=== PATIENT | male | born 1935 | race Caucasian/White ===

== ENCOUNTER 2018-01-21 17:12 | Emergency (ER) | payer MEDICARE ==
[2018-01-21 17:14] VITALS: BP 153/76
--- NOTE | 2018-01-21 17:41 | ER Report ---
History and Physical Time Seen By MD: 17:25 (KUSH LIN MD) HPI/ROS CHIEF COMPLAINT: Confusion HISTORY OF PRESENT ILLNESS: Patient is an 82-year-old male was walking down the street was confused states that he was trying to find somebody's home that he wanted to buy was observed please were notified EMS on arrival on arrival he was confused is alert to person only and no idea where he lived U no idea the year he had no idea how he can't there history Changing he was clearly unable to care for himself police then under advice of states civil litigation attorney brought him here under a title I due to incompetence unable to care for oneself and his confusion have no back metal history is denying any history at this time patient is refusing to give any additional information other than his name and that he wants to go back home when asked repeatedly worse is homeless his address is he he has no recollection an understanding of these questions and has no answers REVIEW OF SYSTEMS: Respiratory: No cough, no dyspnea. Cardiovascular: No chest pain, no palpitations. Gastrointestinal: No vomiting, no abdominal pain. Musculoskeletal: No back pain. Remainder of the 14 system rev: Yes (KUSH LIN MD) Allergies: Coded Allergies: No Known Drug Allergies (Unverified , 01/21/18) Home Meds No Active Prescriptions or Reported Meds Reviewed Nurses Notes: Yes Old Medical Records Reviewed: Yes (KUSH LIN MD) Hx Smoking: No Smoking Status: Never Smoker Hx Alcohol Use: Yes (KUSH LIN MD) Constitutional Vital Sign - Last 24 Hours 01/21/18 17:14 Temp 98.4 Pulse 68 Resp 16 B/P (MAP) 153/76 Pulse Ox 89 O2 Delivery Room Air (FELISA MENCHACA DO) Physical Exam General Appearance: The patient is alert, has no immediate need for airway protection and no current signs of toxicity. [ ] Eyes: Pupils equal and round no injection. Respiratory: Chest is non tender, lungs are clear to auscultation. Cardiac: regular rate and rhythm [ ] Gastrointestinal: Abdomen is soft and non tender, no masses, bowel sounds normal. Musculoskeletal: Neck: Neck is supple and non tender. Extremities have full range of motion and are non tender. Skin: No rashes or lesions. Neuro behavioral exam patient is alert to person only patient is confused as to date location does not know the name of the town he lives in no focal neurological deficits noted DIFFERENTIAL DIAGNOSIS: After history and physical exam differential diagnosis was considered for acute dementia chronic dementia confusion altered mental intracranial (KUSH LIN MD) Medical Decision Making Data Points Result Diagram: 01/21/18174901/21/181749 Laboratory Hematology Test 01/21/18 17:50 Red Blood Count 4.84 M/uL (4.00-5.60) Mean Corpuscular Volume 86.1 fL (80.0-96.0) Mean Corpuscular Hemoglobin 28.7 pg (26.0-33.0) Mean Corpuscular Hemoglobin Concent 33.3 g/dL (32.0-36.0) Red Cell Distribution Width 13.6 % (11.5-14.5) Mean Platelet Volume 8.0 fL (7.2-11.1) Neutrophils (%) (Auto) 83.0 % (39.4-72.5) Lymphocytes (%) (Auto) 10.9 % (17.6-49.6) Monocytes (%) (Auto) 4.8 % (4.1-12.4) Eosinophils (%) (Auto) 0.7 % (0.4-6.7) Basophils (%) (Auto) 0.6 % (0.3-1.4) Nucleated RBC Relative Count (auto) 0.0 /100WBC Neutrophils # (Auto) 4.8 K/uL (2.0-7.4) Lymphocytes # (Auto) 0.6 K/uL (1.3-3.6) Monocytes # (Auto) 0.3 K/uL (0.3-1.0) Eosinophils # (Auto) 0.0 K/uL (0.0-0.5) Basophils # (Auto) 0.0 K/uL (0.0-0.1) Nucleated RBC Absolute Count (auto) 0.00 K/uL Sodium Level 144 mmol/L (137-145) Potassium Level 3.9 mmol/L (3.5-5.0) Chloride Level 105 mmol/L (98-107) Carbon Dioxide Level 25 mmol/L (22-30) Blood Urea Nitrogen 23 mg/dl (9-21) Creatinine 1.10 mg/dl (0.66-1.25) Glomerular Filtration Rate Calc > 60.0 Random Glucose 178 mg/dl (75-110) Calcium Level 8.9 mg/dl (8.4-10.2) Magnesium Level 2.4 mg/dl (1.7-2.2) Total Bilirubin 1.2 mg/dl (0.2-1.3) Aspartate Amino Transf (AST/SGOT) 24 U/L (0-35) Alanine Aminotransferase (ALT/SGPT) 26 U/L (0-56) Alkaline Phosphatase 89 U/L (0-126) Total Protein 7.4 g/dl (6.3-8.2) Albumin 4.2 g/dl (3.5-5.0) Thyroid Stimulating Hormone (TSH) 1.56 uIU/ml (0.46-4.68) Salicylates Level < 10 mg/L Salicylate Last Dose Date unk Acetaminophen Level < 10 ug/ml Serum Alcohol < 10 mg/dl Chemistry Test 01/21/18 17:50 White Blood Count 5.8 k/uL (4.5-11.0) Red Blood Count 4.84 M/uL (4.00-5.60) Hemoglobin 13.9 g/dL (14.0-18.0) Hematocrit 41.7 % (42.0-52.0) Mean Corpuscular Volume 86.1 fL (80.0-96.0) Mean Corpuscular Hemoglobin 28.7 pg (26.0-33.0) Mean Corpuscular Hemoglobin Concent 33.3 g/dL (32.0-36.0) Red Cell Distribution Width 13.6 % (11.5-14.5) Platelet Count 347 K/uL (150-450) Mean Platelet Volume 8.0 fL (7.2-11.1) Neutrophils (%) (Auto) 83.0 % (39.4-72.5) Lymphocytes (%) (Auto) 10.9 % (17.6-49.6) Monocytes (%) (Auto) 4.8 % (4.1-12.4) Eosinophils (%) (Auto) 0.7 % (0.4-6.7) Basophils (%) (Auto) 0.6 % (0.3-1.4) Nucleated RBC Relative Count (auto) 0.0 /100WBC Neutrophils # (Auto) 4.8 K/uL (2.0-7.4) Lymphocytes # (Auto) 0.6 K/uL (1.3-3.6) Monocytes # (Auto) 0.3 K/uL (0.3-1.0) Eosinophils # (Auto) 0.0 K/uL (0.0-0.5) Basophils # (Auto) 0.0 K/uL (0.0-0.1) Nucleated RBC Absolute Count (auto) 0.00 K/uL Glomerular Filtration Rate Calc > 60.0 Calcium Level 8.9 mg/dl (8.4-10.2) Magnesium Level 2.4 mg/dl (1.7-2.2) Total Bilirubin 1.2 mg/dl (0.2-1.3) Aspartate Amino Transf (AST/SGOT) 24 U/L (0-35) Alanine Aminotransferase (ALT/SGPT) 26 U/L (0-56) Alkaline Phosphatase 89 U/L (0-126) Total Protein 7.4 g/dl (6.3-8.2) Albumin 4.2 g/dl (3.5-5.0) Thyroid Stimulating Hormone (TSH) 1.56 uIU/ml (0.46-4.68) Salicylates Level < 10 mg/L Salicylate Last Dose Date unk Acetaminophen Level < 10 ug/ml Serum Alcohol < 10 mg/dl Toxicology Test 01/21/18 17:50 Salicylates Level < 10 mg/L Salicylate Last Dose Date unk Acetaminophen Level < 10 ug/ml Serum Alcohol < 10 mg/dl (FELISA MENCHACA DO) EKG/Imaging Imaging Results: CT scan of the head was obtained. The results of the study are no acute findings. The study was read by the radiologist. I viewed the images myself on the PACS system. (FELISA MENCHACA DO) ED Course/Re-evaluation ED Course Care was assumed at shift change from Dr. Lin. Patient had been emergency detained. He had title 25 evaluation completed and is group home was upheld by Dr. Lin. Further diagnostic studies were pending. Patient was unable to provide a urine for tox screen. CT scan of the head was unremarkable for acute disease. Patient initially uncooperative. He denies wrist and the need for his evaluation. Patient would like to be released. He did attempt to elope from the ER on one occasion. 01/21/2018 10:43:34 pm case discussed with Dr. Naqvi psychiatrist on-call, who accepts the patient under emergency group home to [facility] for further evaluation of his altered mental status Decision to Disposition Date: Jan 21, 2018 Decision to Disposition Time: 20:44 (FELISA MENCHACA DO) Depart Departure Latest Vital Signs Vital Signs Date Time Temp Pulse Resp B/P (MAP) Pulse Ox O2 Delivery O2 Flow Rate FiO2 01/21/18 17:14 98.4 68 16 153/76 89 Room Air (FELISA MENCHACA DO) Impression: Primary Impression: Altered mental status, unspecified Additional Impressions: Disoriented to place Disoriented to time Condition: Improved Disposition: XFER TO [facility] New Scripts No Active Prescriptions or Reported Meds ER - Title 25 MHE Evaluation Title 25 Evaluation Patient Detained By: Physician Date Patient Detained: Jan 21, 2018 Time Patient Detained: 17:48 Date Fci Expires: Jan 21, 2018 Time Fci Expires: 17:48 Legal Status: Police Hold: Yes Legal Status: Residence: [facility] Resident Assessment Data Provided By: Law Enforcement HPI/ROS: Patient confused found wandering on the streets alert to person only unable to answer questions or care for self Admit due to SI or Attempt: No Suicide Plan: No Plan Alcohol or Drugs Involved: No Is Patient Info Reliable: Yes Is Collateral Info Reliable: Yes (KUSH LIN MD) Patient Detained By: Law Enforcement Referral Source: EMA contact (FELISA MENCHACA DO) Mental Status Exam General Appearance: Casual Speech: Clear Mood: Other Affect: Calm, Agitated Thought Process: Loose Associations Thought Content: Ideas of Reference Sensorium: Other Cognition: Alert & Oriented-Person, Other Memory: Other Insight Judgment: Fair Hallucinations: Denies Delusions: Denies (KUSH LIN MD) Current Risk & History Current Dangerous Risk Assessm: Ubable to Care for Self Previous Suicide Attempt: No Previous Attempt Previous Psychiatric Illness: No Previous Psychiatric Treatment: No (KUSH LIN MD) Past Dangerous Risk Assessm: Self-Injurious Behaviors (FELISA MENCHACA DO) Risk Assessment & Disposition Evaluated Risk Assessment: Patient able to care for self admitted (KUSH LNI MD) Impression: Primary Impression: Altered mental status, unspecified Additional Impressions: Disoriented to place Disoriented to time Meets Mental Illness Req.: Yes Meets Dangerousness Req.: Yes Emergency Fci to be: Upheld Date of Decision: Jan 21, 2018 Time of Decision: 17:51 Patient is Medically Stable at: Yes Disposition: S (KUSH LIN MD) Problem Qualifiers Primary Impression: Altered mental status, unspecified Altered mental status type: disorientation Qualified Codes: R41.0 - Disorientation, unspecified KUSH LIN MD Jan 21, 2018 17:41 FELISA MENCHACA DO Jan 21, 2018 20:51
[2018-01-21 17:57] LABS: PLATELET COUNT, AUTOMATED 347 K/uL (150-450)
--- NOTE | 2018-01-21 20:23 | RADIOLOGY IMAGING REPORT ---
FACILITY: [facility] [place] PATIENT NAME: Abel Patel : 1935 MR: [id number] V: [id number] EXAM DATE: ORDERING PHYSICIAN: KUSH MERCEDES TECHNOLOGIST: Location: [facility] [place] Patient: Abel Patel : 1935 Visit/Account:[id number] Date of Sevice: 01/21/2018 EXAMINATION: CT head without IV contrast HISTORY: Confusion. TECHNIQUE: Axial CT images of the head were obtained from the vertex to the skull base without IV c ontrast, with coronal and sagittal 2D reconstructed images. One of the following dose optimization techniques was utilized in the performance of this exam: Autom ated exposure control; adjustment of the mA and/or kV according to the patient's size; or use of an i terative reconstruction technique. Specific details can be referenced in the facility's radiology C T exam operational policy. COMPARISON: None. FINDINGS: Moderate parenchymal atrophy, with patchy low attenuation in the deep white matter, compatible with c hronic small vessel ischemic change. Intracranial vascular calcifications. No CT evidence of intracranial hemorrhage, mass lesion, or acute infarct. No midline shift or extra-a xial fluid collections. Gonzalez-white differentiation is maintained. The calvarium is intact. The partially visualized paranasal sinuses and mastoid air cells are unopaci fied. IMPRESSION: 1. No CT evidence of acute intracranial pathology. 2. Moderate parenchymal atrophy with chronic small vessel ischemic change. Report Dictated By: Robson Novak MD at 01/21/2018 8:19 PM Report E-Signed By: Robson Novak MD at 01/21/2018 8:21 PM [id number]
== END 2018-01-21 23:09 ==
LOC: ER 17:26
DX: R41.82 Altered mental status, unspecified (principal)
CPT/HCPCS: 70450; 83735; 84443; 85025; 99284; G0480; 36415; 80320; 80329; 82040; 82247; 82310; 82374; 82435; 82565; 82947; 84075; 84132; 84155; 84295; 84450; 84460; 84520

== ENCOUNTER 2018-01-21 22:57 | Inpatient (IN) | payer MEDICARE, OTHER ==
[~2018-01-21] VITALS: Ht 167.6 cm; Wt 65.8 kg
[2018-01-21] MEDS ORDERED: ACETAMINOPHEN 325 MG TAB PO PRN (23:10)
[2018-01-22] MEDS: MULTIVITAMINS TAB PO SCH (08:10)
[2018-01-22] MEDS: FOLIC ACID 1 MG TAB PO SCH (11:55)
[2018-01-22] MEDS: THIAMINE HCL 100 MG TAB PO SCH (11:56)
--- NOTE | 2018-01-22 16:37 | BHS - Psychiatric Evaluation ---
Title 25 Evaluation Hearing Report: [id number] Date of Report: Jan 22, 2018 Examiner: [facility] Patient Detained By: Law Enforcement 24hr Mental Health Eval By: Dr. Lin, ER Doctor Date Patient Detained: Jan 21, 2018 Time Patient Detained: 17:22 Date Half-Way Expires: Jan 27, 2018 Time Half-Way Expires: 17:22 Legal Status: Police Hold: No Legal Status: Relationship: Single Legal Status: Residence: [facility] Resident Referral Source: Law Enforcement Assessment Data Provided By: Patient, Law Enforcement, Other Source (Angel Odonnell - [employer]) Chief Complaint: Patient brought to ER from Law Enforcement who found him unable to express a cogent plan for safety and correction. Especially, patient could not identify a javier ronak address. Address he gave was long since vacant, and patient was confused and argumentative. HPI/ROS: Per ER Doctor, Dr. Papito Lin, "Patient is an 82-year-old male was walking down the street was confused states that he was trying to find somebody's home that he wanted to buy was observed police were notified EMS on arrival on arrival he was confused is alert to person only and no idea where he lived and no idea the year he had no idea how he got there. History changing he was clearly unable to care for himself police then under advice of states senior trial attorney brought him here under a title I due to incompetence unable to care for oneself and his confusion have no back mental history is denying any history at this time patient is refusing to give any additional information other than his name and that he wants to go back home when asked repeatedly where his home is or his address, or if he is he has no recollection an understanding of these questions and has no answers." Risk Formulation: Patient is a danger to himself due to his inability to care for himself. His previous reliance on assistance from DFS has abated, and patient is decompensating. Has an inability to remember his address. When DFS was permitted to support him consistently, he was known to have bed bugs, hygiene problems, paranoia about sharing information about himself, and a general inability to care for himself. he was at one time supplied with a cell phone, but reports it was stolen. Further exploration revealed it was turned off and not accessed for a very long time by patient. Patient lacks the basic ability to care for himself on his own. His memory difficulties have become clinically serious according to his DFS worker. Recommendations of [facility] Team: That the patient's initial long-term be upheld and extended for up to ten (10) days to allow for further evaluation, monitoring, and stabilization. Barbara douglas [facility] will follow patient during admission and after discharge. Patient should be directed to follow up with [facility] after discharge from [facility] for ongoing case management. Reliability of Collateral Info Patient DFS worker Angel Odonnell has robust review of of patient's last year of services from DFS. Current Dangerous Risk Assess: Other (Unable to care for himself, does not know where he will live beyong this eviction. ) Current Risk Summary: Patient is a danger to himself due to his inability to care for himself. His previous reliance on assistance from DFS has abated, and patient is decompensating. Has an inability to remember his address. When DFS was permitted to support him consistently, he was known to have bed bugs, hygiene problems, paranoia about sharing information about himself, and a general i nability to care for himself. he was at one time supplied with a cell phone, but reports it was stolen. Further exploration revealed it was turned off and not accessed for a very long time by patient. Patient lacks the basic ability to care for himself on his own. His memory difficulties have become clinically serious according to his DFS worker. Past Dangerous Risk Assess: Self-Injurious Behaviors (Patient conserves electricity due to limited funds and could easily conserve beyond his neeed for a comfortable correction.) BHS - Exam Mental Status Exam General Appearance: Casual, Unkept Speech: Rambling Mood: Dysthmic/Depressed Affect: Anxious, Agitated Thought Process: Other (Perseverates) Thought Content: Suicidal Ideation (Denies), Other (Some paranoia that others enjoy "torturing me for no reason.") Cognition: Alert & Oriented-Person; No Alert & Oriented-Place (Believes the hospital is a fdc, or says he feels as though the hospital is a fdc.), No Alert & Oriented-Time, No Ssslk-Qkulltpz-Cvnwswbjh Memory: Other (Memory is problematic, repeats himself for hours on end.) Intelligence: Average Insight Judgment: Poor Care & Behavior on Unit Pt. Taking Meds Voluntarily: No Behavior on Unit: Patient seems to escalate less around females than males. Title 25 History Psychiatric History: Unknown at this time. Family Psychiatric Hx: Unknown, patient is reluctant to share any information about his family. Drug & Alcohol Use: No drug or alcohol use reported. Current Living Situation: Used to call DFS worker on a cell phone, but has not for the last year and half. Is being evicted from his apartment that DFS worker helped him to obtain. Apartment rent is under $475 per month. DFS worker, Angel Odonnell says patient has frequently been complained about by other tenants in the past for being odorous and untidy. Employment Issues: Per LAVONNE Sorto mica inspector, patient has worked odd jobs/ especially maintenance. May have worked in a [employer] entitled, "[employer]" Financial Issues: Patient has $1,000 upon admit to [facility]. Patient Strengths: Patient seems to have resourceful ness and speaks in a clever, intelligent manner. Current Medical Data: Unknown at this time. Patient was reluctant to give a blood sample. Relevant Medications: Unknown at this time. ROLA DE LA ROSA LPC Jan 22, 2018 16:22
[2018-01-23] MEDS: MULTIVITAMINS TAB PO SCH (08:08)
[2018-01-23] MEDS: THIAMINE HCL 100 MG TAB PO SCH (08:09)
[2018-01-23] MEDS: FOLIC ACID 1 MG TAB PO SCH (08:09)
[2018-01-23] MEDS: CHOLECALCIFEROL 1000 UNIT TAB PO SCH (10:25)
[2018-01-23] MEDS: CYANOCOBALAMIN 1000 MCG TAB PO SCH (10:25)
[2018-01-23] MEDS: OMEGA-3 500 MG CAP PO SCH (10:25)
[2018-01-23 10:36] VITALS: Ht 167.6 cm; Wt 65.8 kg
--- NOTE | 2018-01-23 12:10 | BHS Progress Note ---
BHS - Subjective Progress Notes Subjective Patient today is very cooperative on the unit suffering from what appears to be moderate to severe dementia at this point. Patient not able to remember objects after 5 minutes, even with excessive prompting. Patient has to be re-introduced to staff members constantly. Appetite and thirst drive seem poor, patient drinking fluids when encouraged. It is doubtful a correctable cause of memory loss will be found, and according to DFS, memory problems have been a concern for some time. At this point patient lacks ability to care for self, and will re quire moth exterminator placement. Patient is in need of guardian at this time. Suicidal Ideation: None Homicidal Ideation: None BHS - Objective Physical Exam Vital Signs Hematology Test 01/22/18 00:00 01/22/18 07:10 01/22/18 14:48 01/23/18 07:39 Vitamin D 25-Hydroxy 34 ng/ml (30-100) Free Thyroxine 1.25 ng/dl (0.78-2.19) Urine Color Yellow Urine Clarity Clear Urine pH 6.0 pH (4.8-9.5) Urine Specific [place] 1.030 Urine Protein Trace mg/dL (NEGATIVE) Urine Glucose (UA) Negative mg/dL (NEGATIVE) Urine Ketones Negative mg/dL (NEGATIVE) Urine Blood Negative (NEGATIVE) Urine Nitrite Negative (NEGATIVE) Urine Bilirubin Negative (NEGATIVE) Urine Urobilinogen Negative mg/dL (0.2-1.9) Urine Leukocyte Esterase Negative (NEGATIVE) Urine RBC None /HPF (0-2/HPF) Urine WBC <1 /HPF (0-5/HPF) Urine Squamous Epithelial Cells Few /LPF (</=FEW) Urine Bacteria Negative /HPF (NONE-FEW) Urine Mucus Few /HPF (NONE-FEW) Urine Opiates Screen Negative Urine Barbiturates Screen Negative Ur Tricyclic Antidepressants Screen Negative Urine Phencyclidine Screen Negative Urine Amphetamines Screen Negative Urine Benzodiazepines Screen Negative Urine Cocaine Screen Negative Urine Cannabinoids Screen Negative Whole Blood Glucose 94 mg/DL (75-110) Chemistry Test 01/22/18 00:00 01/22/18 07:10 01/22/18 14:48 01/23/18 07:39 Vitamin D 25-Hydroxy 34 ng/ml (30-100) Free Thyroxine 1.25 ng/dl (0.78-2.19) Urine Color Yellow Urine Clarity Clear Urine pH 6.0 pH (4.8-9.5) Urine Specific [place] 1.030 Urine Protein Trace mg/dL (NEGATIVE) Urine Glucose (UA) Negative mg/dL (NEGATIVE) Urine Ketones Negative mg/dL (NEGATIVE) Urine Blood Negative (NEGATIVE) Urine Nitrite Negative (NEGATIVE) Urine Bilirubin Negative (NEGATIVE) Urine Urobilinogen Negative mg/dL (0.2-1.9) Urine Leukocyte Esterase Negative (NEGATIVE) Urine RBC None /HPF (0-2/HPF) Urine WBC <1 /HPF (0-5/HPF) Urine Squamous Epithelial Cells Few /LPF (</=FEW) Urine Bacteria Negative /HPF (NONE-FEW) Urine Mucus Few /HPF (NONE-FEW) Urine Opiates Screen Negative Urine Barbiturates Screen Negative Ur Tricyclic Antidepressants Screen Negative Urine Phencyclidine Screen Negative Urine Amphetamines Screen Negative Urine Benzodiazepines Screen Negative Urine Cocaine Screen Negative Urine Cannabinoids Screen Negative Whole Blood Glucose 94 mg/DL (75-110) Toxicology Test 01/22/18 07:10 Urine Opiates Screen Negative Urine Barbiturates Screen Negative Ur Tricyclic Antidepressants Screen Negative Urine Phencyclidine Screen Negative Urine Amphetamines Screen Negative Urine Benzodiazepines Screen Negative Urine Cocaine Screen Negative Urine Cannabinoids Screen Negative Urinalysis Test 01/22/18 07:10 Urine Color Yellow Urine Clarity Clear Urine pH 6.0 pH (4.8-9.5) Urine Specific [place] 1.030 Urine Protein Trace mg/dL (NEGATIVE) Urine Glucose (UA) Negative mg/dL (NEGATIVE) Urine Ketones Negative mg/dL (NEGATIVE) Urine Blood Negative (NEGATIVE) Urine Nitrite Negative (NEGATIVE) Urine Bilirubin Negative (NEGATIVE) Urine Urobilinogen Negative mg/dL (0.2-1.9) Urine Leukocyte Esterase Negative (NEGATIVE) Urine RBC None /HPF (0-2/HPF) Urine WBC <1 /HPF (0-5/HPF) Urine Squamous Epithelial Cells Few /LPF (</=FEW) Urine Bacteria Negative /HPF (NONE-FEW) Urine Mucus Few /HPF (NONE-FEW) Vital Signs Date Time Temp Pulse Resp B/P (MAP) Pulse Ox O2 Delivery O2 Flow Rate FiO2 01/22/18 20:48 61 93 Room Air Muscle Strength and Tone: WNL Gait and Station: Steady BHS Medications Reviewed: Side Effects, Benefits of Medication, Risks Allergies Reviewed: Yes Mental Status Exam General Appearance: Casual, Good Eye Contact, Cooperative, Polite, Good Interaction, Unkept (somewhat), Tearful (at times); No Psychomotor Agitation, No Psychomotor Retardation, No Bizarre Mannerisms, No Tics Speech: Clear, Spontaneous, Normal Rate, Normal Rhythm, Normal Volume, Normal Tone, Rambling (repeating previous converstations ); No Inappropriate Mood: Dysthmic/Depressed (frustrated) Affect: Calm, Tearful, Anxious (at times); No Agitated Thought Process: No Organized, No Logical, No Loose Associations, No Flight of Ideas; Other (Perseverates) Thought Content: Suicidal Ideation (Denies); No Homicidal Ideation, No Delusions, No Auditory Halllucinations, No Visual Hallucinations, No Thought Broadcasting, No Ideas of Reference, No Obsessions, No Compulsions Cognition: Alert & Oriented-Person; No Alert & Oriented-Place (partially to place), No Alert & Oriented-Time, No Uskhu-Benrmhga-Qqwgjlaiz Memory: No Immediate, No Recent; Remote (some remote memory appears intact); No Other Intelligence: Average (historically likely to be average ) Insight Judgment: Poor (inability to care for self in what 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 ) [facility] Assessment and Plan [id number] Encounter Date: Jan 23, 2018 [id number] Encounter Time: 10:00 [facility] Plan: Necessary Precautions, Individual/Group Therapy, Admin/Titrate Meds, Educate Patient Tobacco Medications: Not Appropriate Condition Multpiple Antipsychotics Used: No Problems: (1) Major neurocognitive disorder Status: Chronic Assessment & Plan: patient in need of [facility] placement, and guardianship Condition 1. continue treatment. LINWOOD GIRON MD Jan 23, 2018 12:10
[2018-01-23 13:25] VITALS: BP 110/70
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
[2018-01-23 20:21] VITALS: BP 122/84
[2018-01-23] MEDS: DONEPEZIL HCL 5 MG TAB PO SCH ×2 (20:58→21:00)
[2018-01-24] MEDS: CYANOCOBALAMIN 1000 MCG TAB PO SCH (09:00)
[2018-01-24] MEDS: FOLIC ACID 1 MG TAB PO SCH (09:00)
[2018-01-24] MEDS: THIAMINE HCL 100 MG TAB PO SCH (09:00)
[2018-01-24] MEDS: MULTIVITAMINS TAB PO SCH (09:00)
[2018-01-24] MEDS: CHOLECALCIFEROL 1000 UNIT TAB PO SCH (09:00)
[2018-01-24] MEDS: OMEGA-3 500 MG CAP PO SCH (09:00)
--- NOTE | 2018-01-24 11:43 | BHS Progress Note ---
[facility] - Subjective Progress Notes Subjective Pt seen in conference room. Pt remains cooperative, he continues to protest being here, "I'm no criminal, I've done nothing wrong." Short term memory is significantly impaired-- he and I spoke in the hallway for about 10 minutes, then 20 mins later he had no recollection of ever meeting me. Pt did eat a granola bar today, but other than that he continues to refuse food, stating he has no appetite. During our conversation he is unable to retain information past about 4-5 minutes. He denies physical complaints, says he is sleeping fine and staff confirm. He continues to refuse all medications. I had ordered zyprexa low dose last night for mild paranoia, but he refused that, as well as refused aricept. B12 and folate levels are still pending. Will continue to encourage po intake, continue on [address] 25 hold as pt is clearly unable to care for self. Needs guardian and exterminator placement. Suicidal Ideation: None Homicidal Ideation: None [facility] - Objective Physical Exam Vital Signs Vital Signs 01/23/18 01/23/18 13:25 20:21 Temp 98.8 Pulse 66 Resp 16 B/P (MAP) 122/84 (97) Pulse Ox 94 O2 Delivery Room Air Muscle Strength and Tone: WNL Gait and Station: Steady [facility] Medications Reviewed: Side Effects, Benefits of Medication, Risks Allergies Reviewed: Yes Mental Status Exam General Appearance: Casual, Good Eye Contact, Cooperative, Polite, Good Interaction, Unkept (somewhat); No Psychomotor Agitation, No Psychomotor Retardation, No Bizarre Mannerisms, No Tics Speech: Clear, Spontaneous, Normal Rate, Normal Rhythm, Normal Volume, Normal Tone, Rambling (repeating previous converstations ); No Inappropriate Mood: Dysthmic/Depressed (frustrated) Affect: Calm, Tearful, Anxious (at times); No Agitated Thought Process: No Organized, No Logical, No Loose Associations, No Flight of Ideas; Other (Perseverates) Thought Content: Suicidal Ideation (Denies); No Homicidal Ideation, No Delusions, No Auditory Halllucinations, No Visual Hallucinations, No Thought Broadcasting, No Ideas of Reference, No Obsessions, No Compulsions Cognition: Alert & Oriented-Person; No Alert & Oriented-Place, No Alert & Oriented-Time, No Vyaja-Jqajsoiq-Katdtsovi Memory: No Immediate, No Recent; Remote (some remote memory appears intact); No Other Intelligence: Average (historically likely to be average ) Insight Judgment: Poor (inability to care for self in what 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 ) [facility] Assessment and Plan [id number] Encounter Date: Jan 24, 2018 [id number] Encounter Time: 09:00 [facility] Plan: Necessary Precautions, Individual/Group Therapy, Admin/Titrate Meds, Educate Patient Tobacco Medications: Not Appropriate Condition Multpiple Antipsychotics Used: No Problems: (1) Major neurocognitive disorder Status: Chronic SRINIVASA LOVE MD Jan 24, 2018 11:43
[2018-01-24] MEDS: DONEPEZIL HCL 5 MG TAB PO SCH (21:00)
[2018-01-24] MEDS: OLANZapine 5 MG TAB PO SCH (21:00)
[2018-01-25] MEDS: MULTIVITAMINS TAB PO SCH (09:00)
[2018-01-25] MEDS: THIAMINE HCL 100 MG TAB PO SCH (09:00)
[2018-01-25] MEDS: FOLIC ACID 1 MG TAB PO SCH (09:00)
[2018-01-25] MEDS: CYANOCOBALAMIN 1000 MCG TAB PO SCH (09:00)
[2018-01-25] MEDS: CHOLECALCIFEROL 1000 UNIT TAB PO SCH (09:00)
[2018-01-25] MEDS: OMEGA-3 500 MG CAP PO SCH (09:00)
--- NOTE | 2018-01-25 14:54 | BHS Progress Note ---
[facility] - Subjective Progress Notes Subjective Pt seen in the dining room with staff. Pt is still refusing to eat and is drinking very little. He so far shows no ill effects-- moved his bowels yesterday, is urinating, is alert, ambulating steadily, says he has no appetite. Evidence of dementia persists unchanged with very poor immediate and short term memory. He shows signs of paranoia as well-- slept on newspapers covering his entire bed, checks behind doors. Still refusing medications. B12 and folate levels are both normal. Will continue to encourage po intake and continue to pursue safe disposition-- application is in at [facility]. Suicidal Ideation: None Homicidal Ideation: None [facility] - Objective Physical Exam Vital Signs Vital Signs 01/23/18 01/23/18 13:25 20:21 Temp 98.8 Pulse 66 Resp 16 B/P (MAP) 122/84 (97) Pulse Ox 94 O2 Delivery Room Air Muscle Strength and Tone: WNL Gait and Station: Steady [facility] Medications Reviewed: Side Effects, Benefits of Medication, Risks Allergies Reviewed: Yes Mental Status Exam General Appearance: Casual, Good Eye Contact, Cooperative, Polite, Good Inte raction, Unkept (somewhat); No Psychomotor Agitation, No Psychomotor Retardation, No Bizarre Mannerisms, No Tics Speech: Clear, Spontaneous, Normal Rate, Normal Rhythm, Normal Volume, Normal Tone, Rambling (repeating previous converstations ); No Inappropriate Mood: Dysthmic/Depressed (frustrated) Affect: Calm, Tearful, Anxious (at times); No Agitated Thought Process: No Organized, No Logical, No Loose Associations, No Flight of Ideas; Other (Perseverates) Thought Content: Suicidal Ideation (Denies); No Homicidal Ideation, No Delusions, No Auditory Halllucinations, No Visual Hallucinations, No Thought Broadcasting, No Ideas of Reference, No Obsessions, No Compulsions Cognition: Alert & Oriented-Person; No Alert & Oriented-Place, No Alert & Oriented-Time, No Lwift-Hnlcqpfo-Yoedybfwc Memory: No Immediate, No Recent; Remote (some remote memory appears intact); No Other Intelligence: Average (historically likely to be average ) Insight Judgment: Poor (inability to care for self in what 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 ) [facility] Assessment and Plan [id number] Encounter Date: Jan 25, 2018 Iypz-[id number] Encounter Time: 09:[address] [facility] Plan: Necessary Precautions, Individual/Group Therapy, Admin/Titrate Meds, Educate Patient Tobacco Medications: Not Appropriate Condition Multpiple Antipsychotics Used: No Problems: (1) Major neurocognitive disorder Status: Chronic SRINIVASA LOVE MD Jan 25, 2018 14:54
[2018-01-25] MEDS: DONEPEZIL HCL 5 MG TAB PO SCH ×2 (20:42→21:00)
[2018-01-25 20:55] VITALS: BP 156/81
[2018-01-25] MEDS: OLANZapine 5 MG TAB PO SCH (21:00)
[2018-01-26] MEDS: THIAMINE HCL 100 MG TAB PO SCH (08:00)
[2018-01-26] MEDS: CHOLECALCIFEROL 1000 UNIT TAB PO SCH (08:00)
[2018-01-26] MEDS: FOLIC ACID 1 MG TAB PO SCH (08:00)
[2018-01-26] MEDS: CYANOCOBALAMIN 1000 MCG TAB PO SCH (08:00)
[2018-01-26] MEDS: OMEGA-3 500 MG CAP PO SCH (08:00)
[2018-01-26] MEDS: MULTIVITAMINS TAB PO SCH (08:00)
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
[2018-01-26 14:25] VITALS: BP 129/67
[2018-01-26 19:31] VITALS: BP 132/78
[2018-01-26] MEDS: DONEPEZIL HCL 5 MG TAB PO SCH ×2 (20:41→21:00)
[2018-01-26] MEDS: OLANZapine 5 MG TAB PO SCH (20:58)
[2018-01-27] MEDS: FOLIC ACID 1 MG TAB PO SCH (08:41)
[2018-01-27] MEDS: CYANOCOBALAMIN 1000 MCG TAB PO SCH (08:41)
[2018-01-27] MEDS: OMEGA-3 500 MG CAP PO SCH (08:41)
[2018-01-27] MEDS: THIAMINE HCL 100 MG TAB PO SCH (08:41)
[2018-01-27] MEDS: MULTIVITAMINS TAB PO SCH (08:41)
[2018-01-27] MEDS: CHOLECALCIFEROL 1000 UNIT TAB PO SCH (08:42)
--- NOTE | 2018-01-27 11:26 | BHS Progress Note ---
[facility] - Subjective Progress Notes Subjective Patient irritated, this AM, with being a "prisoner" Patient again demonstrating almost no immediate memory, and continues with minimal food/ liquid intake. [facility] to evaluate today, for possible admission. Will have routine lab work today. Patient demonstrating no memory of this provider after just a few minutes. Suicidal Ideation: None Homicidal Ideation: None [facility] - Objective Physical Exam Vital Signs Vital Signs Date Time Temp Pulse Resp B/P (MAP) Pulse Ox O2 Delivery O2 Flow Rate FiO2 01/26/18 19:31 98.5 61 132/78 (96) 95 Room Air 01/23/18 13:25 16 Hematology Test 01/22/18 00:00 01/22/18 07:10 01/22/18 14:48 01/23/18 07:39 Vitamin D 25-Hydroxy 34 ng/ml (30-100) Free Thyroxine 1.25 ng/dl (0.78-2.19) Free Triiodothyronine 2.5 pg/mL (2.4-4.2) Urine Color Yellow Urine Clarity Clear Urine pH 6.0 pH (4.8-9.5) Urine Specific Gray 1.030 Urine Protein Trace mg/dL (NEGATIVE) Urine Glucose (UA) Negative mg/dL (NEGATIVE) Urine Ketones Negative mg/dL (NEGATIVE) Urine Blood Negative (NEGATIVE) Urine Nitrite Negative (NEGATIVE) Urine Bilirubin Negative (NEGATIVE) Urine Urobilinogen Negative mg/dL (0.2-1.9) Urine Leukocyte Esterase Negative (NEGATIVE) Urine RBC None /HPF (0-2/HPF) Urine WBC <1 /HPF (0-5/HPF) Urine Squamous Epithelial Cells Few /LPF (</=FEW) Urine Bacteria Negative /HPF (NONE-FEW) Urine Mucus Few /HPF (NONE-FEW) Urine Opiates Screen Negative Urine Barbiturates Screen Negative Ur Tricyclic Antidepressants Screen Negative Urine Phencyclidine Screen Negative Urine Amphetamines Screen Negative Urine Benzodiazepines Screen Negative Urine Cocaine Screen Negative Urine Cannabinoids Screen Negative Vitamin B12 Level 591 pg/mL (180-914) Folate 20.2 ng/mL (>=5.9) Whole Blood Glucose 94 mg/DL (75-110) Chemistry Test 01/22/18 00:00 01/22/18 07:10 01/22/18 14:48 01/23/18 07:39 Vitamin D 25-Hydroxy 34 ng/ml (30-100) Free Thyroxine 1.25 ng/dl (0.78-2.19) Free Triiodothyronine 2.5 pg/mL (2.4-4.2) Urine Color Yellow Urine Clarity Clear Urine pH 6.0 pH (4.8-9.5) Urine Specific Gray 1.030 Urine Protein Trace mg/dL (NEGATIVE) Urine Glucose (UA) Negative mg/dL (NEGATIVE) Urine Ketones Negative mg/dL (NEGATIVE) Urine Blood Negative (NEGATIVE) Urine Nitrite Negative (NEGATIVE) Urine Bilirubin Negative (NEGATIVE) Urine Urobilinogen Negative mg/dL (0.2-1.9) Urine Leukocyte Esterase Negative (NEGATIVE) Urine RBC None /HPF (0-2/HPF) Urine WBC <1 /HPF (0-5/HPF) Urine Squamous Epithelial Cells Few /LPF (</=FEW) Urine Bacteria Negative /HPF (NONE-FEW) Urine Mucus Few /HPF (NONE-FEW) Urine Opiates Screen Negative Urine Barbiturates Screen Negative Ur Tricyclic Antidepressants Screen Negative Urine Phencyclidine Screen Negative Urine Amphetamines Screen Negative Urine Benzodiazepines Screen Negative Urine Cocaine Screen Negative Urine Cannabinoids Screen Negative Vitamin B12 Level 591 pg/mL (180-914) Folate 20.2 ng/mL (>=5.9) Whole Blood Glucose 94 mg/DL (75-110) Toxicology Test 01/22/18 07:10 Urine Opiates Screen Negative Urine Barbiturates Screen Negative Ur Tricyclic Antidepressants Screen Negative Urine Phencyclidine Screen Negative Urine Amphetamines Screen Negative Urine Benzodiazepines Screen Negative Urine Cocaine Screen Negative Urine Cannabinoids Screen Negative Urinalysis Test 01/22/18 07:10 Urine Color Yellow Urine Clarity Clear Urine pH 6.0 pH (4.8-9.5) Urine Specific Gray 1.030 Urine Protein Trace mg/dL (NEGATIVE) Urine Glucose (UA) Negative mg/dL (NEGATIVE) Urine Ketones Negative mg/dL (NEGATIVE) Urine Blood Negative (NEGATIVE) Urine Nitrite Negative (NEGATIVE) Urine Bilirubin Negative (NEGATIVE) Urine Urobilinogen Negative mg/dL (0.2-1.9) Urine Leukocyte Esterase Negative (NEGATIVE) Urine RBC None /HPF (0-2/HPF) Urine WBC <1 /HPF (0-5/HPF) Urine Squamous Epithelial Cells Few /LPF (</=FEW) Urine Bacteria Negative /HPF (NONE-FEW) Urine Mucus Few /HPF (NONE-FEW) Muscle Strength and Tone: WNL Gait and Station: Steady [facility] Medications Reviewed: Side Effects, Benefits of Medication, Risks Allergies Reviewed: Yes Mental Status Exam General Appearance: Casual, Cooperative, Polite, Unkept (somewhat, and avoiding clothes today. ); No Psychomotor Agitation, No Psychomotor Retardation, No Bizarre Mannerisms, No Tics Speech: Clear, Spontaneous, Normal Rate, Normal Rhythm, Normal Volume, Normal Tone, Rambling (repeating previous converstations ); No Inappropriate Mood: Dysthmic/Depressed (frustrated) Affect: Calm, Tearful, Anxious (at times); No Agitated Thought Process: No Organized, No Logical, No Loose Associations, No Flight of Ideas; Other (Perseverates) Thought Content: No Suicidal Ideation, No Homicidal Ideation, No Delusions, No Auditory Halllucinations, No Visual Hallucinations, No Thought Broadcasting, No Ideas of Reference, No Obsessions, No Compulsions, No Other Cognition: Alert & Oriented-Person; No Alert & Oriented-Place, No Alert & Oriented-Time, No Agefd-Utwnaqrm-Tnxkxwwyr Memory: No Immediate, No Recent; Remote (some remote memory appears intact); No Other Intelligence: Average (historically likely to be average ) Insight Judgment: Poor (inability to care for self in what 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 ) [facility] Assessment and Plan [id number] Encounter Date: Jan 27, 2018 Nmnv-[id number] Encounter Time: 10:00 [facility] Plan: Necessary Precautions, Individual/Group Therapy, Admin/Titrate Meds, Educate Patient Tobacco Medications: Not Appropriate Condition Multpiple Antipsychotics Used: No Problems: (1) Major neurocognitive disorder Status: Chronic Assessment & Plan: patient in need of terminal superintendent placement, and guardianship Condition 1. continue treatment. 2. [facility] to interview today. LINWOOD GIRON MD Jan 27, 2018 11:26
[2018-01-27 11:40] LABS: PLATELET COUNT, AUTOMATED 377 K/uL (150-450)
[2018-01-27] MEDS: OLANZapine 5 MG TAB PO SCH (21:00)
[2018-01-27 21:31] VITALS: BP 138/62
[2018-01-28] MEDS: FOLIC ACID 1 MG TAB PO SCH (07:57)
[2018-01-28] MEDS: CYANOCOBALAMIN 1000 MCG TAB PO SCH (07:57)
[2018-01-28] MEDS: OMEGA-3 500 MG CAP PO SCH (07:57)
[2018-01-28] MEDS: THIAMINE HCL 100 MG TAB PO SCH (07:57)
[2018-01-28] MEDS: CHOLECALCIFEROL 1000 UNIT TAB PO SCH (07:57)
[2018-01-28] MEDS: MULTIVITAMINS TAB PO SCH (07:57)
--- NOTE | 2018-01-28 12:03 | BHS Progress Note ---
BHS - Subjective Progress Notes Subjective Patient remains cooperative overall on the unit, again demonstrating no memory of this provider or other staff members from yesterday. Patient does demonstrate a partial memory of [employer] employment case manager who has known patient for a year. Patient is medically healthy overall, with almost no immediate memory. Patient refusing Aricept and Zyprexa at night. [facility] could possibly have a room available for the patient but not likely that patient has any funding ability. [facility] has worked with this patient long enough to offer a high probability that patient has very limited financial ability as well as no family members available. Will continue to assess, at this point patient needs hearing for commitment while suitable LTC placement is found. Suicidal Ideation: None Homicidal Ideation: None S - Objective Physical Exam Vital Signs Vital Signs Date Time Temp Pulse Resp B/P (MAP) Pulse Ox O2 Delivery O2 Flow Rate FiO2 01/27/18 21:31 58 138/62 (87) 92 Room Air 01/26/18 19:31 98.5 Hematology Test 01/22/18 00:00 01/22/18 07:10 01/22/18 14:48 01/27/18 11:32 Vitamin D 25-Hydroxy 34 ng/ml (30-100) Free Thyroxine 1.25 ng/dl (0.78-2.19) Free Triiodothyronine 2.5 pg/mL (2.4-4.2) Urine Opiates Screen Negative Urine Barbiturates Screen Negative Ur Tricyclic Antidepressants Screen Negative Urine Phencyclidine Screen Negative Urine Amphetamines Screen Negative Urine Benzodiazepines Screen Negative Urine Cocaine Screen Negative Urine Cannabinoids Screen Negative Vitamin B12 Level 591 pg/mL (180-914) Folate 20.2 ng/mL (>=5.9) Whole Blood Glucose 134 mg/DL (75-110) Test 01/27/18 11:33 Red Blood Count 4.90 M/uL (4.00-5.60) Mean Corpuscular Volume 87.4 fL (80.0-96.0) Mean Corpuscular Hemoglobin 29.1 pg (26.0-33.0) Mean Corpuscular Hemoglobin Concent 33.3 g/dL (32.0-36.0) Red Cell Distribution Width 13.5 % (11.5-14.5) Mean Platelet Volume 8.0 fL (7.2-11.1) Neutrophils (%) (Auto) 77.1 % (39.4-72.5) Lymphocytes (%) (Auto) 12.6 % (17.6-49.6) Monocytes (%) (Auto) 7.5 % (4.1-12.4) Eosinophils (%) (Auto) 1.6 % (0.4-6.7) Basophils (%) (Auto) 1.2 % (0.3-1.4) Nucleated RBC Relative Count (auto) 0.1 /100WBC Neutrophils # (Auto) 4.4 K/uL (2.0-7.4) Lymphocytes # (Auto) 0.7 K/uL (1.3-3.6) Monocytes # (Auto) 0.4 K/uL (0.3-1.0) Eosinophils # (Auto) 0.1 K/uL (0.0-0.5) Basophils # (Auto) 0.1 K/uL (0.0-0.1) Nucleated RBC Absolute Count (auto) 0.00 K/uL Urine Color Kristen Urine Clarity Slightly-cloudy Urine pH 5.0 pH (4.8-9.5) Urine Specific [place] 1.024 Urine Protein Negative mg/dL (NEGATIVE) Urine Glucose (UA) Negative mg/dL (NEGATIVE) Urine Ketones Negative mg/dL (NEGATIVE) Urine Blood Negative (NEGATIVE) Urine Nitrite Negative (NEGATIVE) Urine Bilirubin Negative (NEGATIVE) Urine Urobilinogen 4.0 mg/dL (0.2-1.9) Urine Leukocyte Esterase Negative (NEGATIVE) Urine RBC None /HPF (0-2/HPF) Urine WBC 1 /HPF (0-5/HPF) Urine Squamous Epithelial Cells Few /LPF (</=FEW) Urine Bacteria Few /HPF (NONE-FEW) Urine Hyaline Casts Few /LPF (NONE-FEW) Urine Mucus Few /HPF (NONE-FEW) Sodium Level 141 mmol/L (137-145) Potassium Level 3.8 mmol/L (3.5-5.0) Chloride Level 101 mmol/L (98-107) Carbon Dioxide Level 27 mmol/L (22-30) Blood Urea Nitrogen 17 mg/dl (9-21) Creatinine 0.80 mg/dl (0.66-1.25) Glomerular Filtration Rate Calc > 60.0 Random Glucose 166 mg/dl (75-110) Calcium Level 8.8 mg/dl (8.4-10.2) Total Bilirubin 1.1 mg/dl (0.2-1.3) Aspartate Amino Transf (AST/SGOT) 22 U/L (0-35) Alanine Aminotransferase (ALT/SGPT) 26 U/L (0-56) Alkaline Phosphatase 83 U/L (0-126) Total Protein 6.5 g/dl (6.3-8.2) Albumin 3.8 g/dl (3.5-5.0) Chemistry Test 01/22/18 00:00 01/22/18 07:10 01/22/18 14:48 01/27/18 11:32 Vitamin D 25-Hydroxy 34 ng/ml (30-100) Free Thyroxine 1.25 ng/dl (0.78-2.19) Free Triiodothyronine 2.5 pg/mL (2.4-4.2) Urine Opiates Screen Negative Urine Barbiturates Screen Negative Ur Tricyclic Antidepressants Screen Negative Urine Phencyclidine Screen Negative Urine Amphetamines Screen Negative Urine Benzodiazepines Screen Negative Urine Cocaine Screen Negative Urine Cannabinoids Screen Negative Vitamin B12 Level 591 pg/mL (180-914) Folate 20.2 ng/mL (>=5.9) Whole Blood Glucose 134 mg/DL (75-110) Test 01/27/18 11:33 White Blood Count 5.7 k/uL (4.5-11.0) Red Blood Count 4.90 M/uL (4.00-5.60) Hemoglobin 14.3 g/dL (14.0-18.0) Hematocrit 42.8 % (42.0-52.0) Mean Corpuscular Volume 87.4 fL (80.0-96.0) Mean Corpuscular Hemoglobin 29.1 pg (26.0-33.0) Mean Corpuscular Hemoglobin Concent 33.3 g/dL (32.0-36.0) Red Cell Distribution Width 13.5 % (11.5-14.5) Platelet Count 377 K/uL (150-450) Mean Platelet Volume 8.0 fL (7.2-11.1) Neutrophils (%) (Auto) 77.1 % (39.4-72.5) Lymphocytes (%) (Auto) 12.6 % (17.6-49.6) Monocytes (%) (Auto) 7.5 % (4.1-12.4) Eosinophils (%) (Auto) 1.6 % (0.4-6.7) Basophils (%) (Auto) 1.2 % (0.3-1.4) Nucleated RBC Relative Count (auto) 0.1 /100WBC Neutrophils # (Auto) 4.4 K/uL (2.0-7.4) Lymphocytes # (Auto) 0.7 K/uL (1.3-3.6) Monocytes # (Auto) 0.4 K/uL (0.3-1.0) Eosinophils # (Auto) 0.1 K/uL (0.0-0.5) Basophils # (Auto) 0.1 K/uL (0.0-0.1) Nucleated RBC Absolute Count (auto) 0.00 K/uL Urine Color Kristen Urine Clarity Slightly-cloudy Urine pH 5.0 pH (4.8-9.5) Urine Specific [place] 1.024 Urine Protein Negative mg/dL (NEGATIVE) Urine Glucose (UA) Negative mg/dL (NEGATIVE) Urine Ketones Negative mg/dL (NEGATIVE) Urine Blood Negative (NEGATIVE) Urine Nitrite Negative (NEGATIVE) Urine Bilirubin Negative (NEGATIVE) Urine Urobilinogen 4.0 mg/dL (0.2-1.9) Urine Leukocyte Esterase Negative (NEGATIVE) Urine RBC None /HPF (0-2/HPF) Urine WBC 1 /HPF (0-5/HPF) Urine Squamous Epithelial Cells Few /LPF (</=FEW) Urine Bacteria Few /HPF (NONE-FEW) Urine Hyaline Casts Few /LPF (NONE-FEW) Urine Mucus Few /HPF (NONE-FEW) Glomerular Filtration Rate Calc > 60.0 Calcium Level 8.8 mg/dl (8.4-10.2) Total Bilirubin 1.1 mg/dl (0.2-1.3) Aspartate Amino Transf (AST/SGOT) 22 U/L (0-35) Alanine Aminotransferase (ALT/SGPT) 26 U/L (0-56) Alkaline Phosphatase 83 U/L (0-126) Total Protein 6.5 g/dl (6.3-8.2) Albumin 3.8 g/dl (3.5-5.0) Toxicology Test 01/22/18 07:10 Urine Opiates Screen Negative Urine Barbiturates Screen Negative Ur Tricyclic Antidepressants Screen Negative Urine Phencyclidine Screen Negative Urine Amphetamines Screen Negative Urine Benzodiazepines Screen Negative Urine Cocaine Screen Negative Urine Cannabinoids Screen Negative Urinalysis Test 01/27/18 11:33 Urine Color Kristen Urine Clarity Slightly-cloudy Urine pH 5.0 pH (4.8-9.5) Urine Specific [place] 1.024 Urine Protein Negative mg/dL (NEGATIVE) Urine Glucose (UA) Negative mg/dL (NEGATIVE) Urine Ketones Negative mg/dL (NEGATIVE) Urine Blood Negative (NEGATIVE) Urine Nitrite Negative (NEGATIVE) Urine Bilirubin Negative (NEGATIVE) Urine Urobilinogen 4.0 mg/dL (0.2-1.9) Urine Leukocyte Esterase Negative (NEGATIVE) Urine RBC None /HPF (0-2/HPF) Urine WBC 1 /HPF (0-5/HPF) Urine Squamous Epithelial Cells Few /LPF (</=FEW) Urine Bacteria Few /HPF (NONE-FEW) Urine Hyaline Casts Few /LPF (NONE-FEW) Urine Mucus Few /HPF (NONE-FEW) Muscle Strength and Tone: WNL Gait and Station: Steady [facility] Medications Reviewed: Side Effects, Benefits of Medication, Risks Allergies Reviewed: Yes Mental Status Exam General Appearance: Casual, Cooperative, Polite, Unkept (somewhat, ); No Psychomotor Agitation, No Psychomotor Retardation, No Bizarre Mannerisms, No Tics Speech: Clear, Spontaneous, Normal Rate, Normal Rhythm, Normal Volume, Normal Tone, Rambling (repeating previous converstations ); No Inappropriate Mood: Dysthmic/Depressed (frustrated) Affect: Calm, Tearful, Anxious (at times); No Agitated Thought Process: No Organized, No Logical, No Loose Associations, No Flight of Ideas; Other (Perseverates) Thought Content: No Suicidal Ideation, No Homicidal Ideation, No Delusions, No Auditory Halllucinations, No Visual Hallucinations, No Thought Broadcasting, No Ideas of Reference, No Obsessions, No Compulsions, No Other Cognition: Alert & Oriented-Person; No Alert & Oriented-Place, No Alert & Oriented-Time, No Gzdvx-Xdovtyji-Pjzqwqwij Memory: No Immediate, No Recent; Remote (some remote memory appears intact); No Other Intelligence: Average (historically likely to be average ) Insight Judgment: Poor (inability to care for self in what 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 ) Result Diagram: 01/27/18 1133 01/27/18 1133 [facility] Assessment and Plan Tcpd-[id number] Encounter Date: Jan 28, 2018 Uoon-[id number] Encounter Time: 09:00 [facility] Plan: Necessary Precautions, Individual/Group Therapy, Admin/Titrate Meds, Educate Patient Tobacco Medications: Not Appropriate Condition Multpiple Antipsychotics Used: No Problems: (1) Major neurocognitive disorder Status: Chronic Assessment & Plan: patient in need of termite treater helper placement, and guardianship Condition 1. encourage medication compliance. 2. verify finances if possible, for aid in appropriate placement. 3. schedule hearing LINWOOD GIRON MD Jan 28, 2018 12:03
[2018-01-29] MEDS: THIAMINE HCL 100 MG TAB PO SCH (08:11)
[2018-01-29] MEDS: FOLIC ACID 1 MG TAB PO SCH (08:11)
[2018-01-29] MEDS: OMEGA-3 500 MG CAP PO SCH (08:11)
[2018-01-29] MEDS: MULTIVITAMINS TAB PO SCH (08:11)
[2018-01-29] MEDS: CYANOCOBALAMIN 1000 MCG TAB PO SCH (08:11)
[2018-01-29] MEDS: CHOLECALCIFEROL 1000 UNIT TAB PO SCH (08:12)
--- NOTE | 2018-01-29 10:49 | BHS Progress Note ---
S - Subjective Progress Notes Subjective Patient remains cooperative today, extremely limited immediate memory continues, with this provider having to introduce himself again today. Patient in need of hearing to be placed on [facility] wait list, if suitable placement in penitentiary care could can not be found. No other complaints. Patient refusing medication. Suicidal Ideation: None Homicidal Ideation: None [facility] - Objective Physical Exam Vital Signs Vital Signs Date Time Temp Pulse Resp B/P (MAP) Pulse Ox O2 Delivery O2 Flow Rate FiO2 01/27/18 21:31 58 138/62 (87) 92 Room Air 01/26/18 19:31 98.5 Muscle Strength and Tone: WNL Gait and Station: Steady [facility] Medications Reviewed: Side Effects, Benefits of Medication, Risks Allergies Reviewed: Yes Mental Status Exam General Appearance: Casual, Cooperative, Polite, Unkept (somewhat, ); No Psychomotor Agitation, No Psychomotor Retardation, No Bizarre Mannerisms, No Tics Speech: Clear, Spontaneous, Normal Rate, Normal Rhythm, Normal Volume, Normal Tone, Rambling (repeating previous converstations ); No Inappropriate Mood: Dysthmic/Depressed (frustrated) Affect: Calm, Tearful, Anxious (at times); No Agitated Thought Process: No Organized, No Logical, No Loose Associations, No Flight of Ideas; Other (Perseverates) Thought Content: No Suicidal Ideation, No Homicidal Ideation, No Delusions, No Auditory Halllucinations, No Visual Hallucinations, No Thought Broadcasting, No Ideas of Reference, No Obsessions, No Compulsions, No Other Cognition: Alert & Oriented-Person; No Alert & Oriented-Place, No Alert & Oriented-Time, No Gznlz-Zhzzxzzb-Xghwncgrw Memory: No Immediate, No Recent; Remote (some remote memory appears intact); No Other Intelligence: Average (historically likely to be average ) Insight Judgment: Poor (inability to care for self in what 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 ) Result Diagram: 01/27/18 1133 01/27/[address] [facility] Assessment and Plan Znfh-dg-Teln Encounter Date: Jan 29, 2018 Gsto-[id number] Encounter Time: 10:00 [facility] Plan: Necessary Precautions, Individual/Group Therapy, Admin/Titrate Meds, Educate Patient Tobacco Medications: Not Appropriate Condition Multpiple Antipsychotics Used: No Problems: (1) Major neurocognitive disorder Status: Chronic Assessment & Plan: patient in need of penitentiary placement, and guardianship Condition 1. continue treatment. 2. look for placement. LINWOOD GIRON MD Jan 29, 2018 10:49
[2018-01-29] MEDS: DONEPEZIL HCL 5 MG TAB PO SCH (21:00)
[2018-01-29] MEDS: OLANZapine 5 MG TAB PO SCH (21:00)
[2018-01-30 06:23] VITALS: BP 142/70
[2018-01-30] MEDS: FOLIC ACID 1 MG TAB PO SCH (08:07)
[2018-01-30] MEDS: THIAMINE HCL 100 MG TAB PO SCH (08:07)
[2018-01-30] MEDS: CYANOCOBALAMIN 1000 MCG TAB PO SCH (08:07)
[2018-01-30] MEDS: OMEGA-3 500 MG CAP PO SCH (08:07)
[2018-01-30] MEDS: CHOLECALCIFEROL 1000 UNIT TAB PO SCH (08:07)
[2018-01-30] MEDS: MULTIVITAMINS TAB PO SCH (08:07)
--- NOTE | 2018-01-30 09:42 | BHS Progress Note ---
BHS - Subjective Progress Notes Subjective Patient cooperative but frustrated, continues to demonstrate almost no immediate memory. Patient's appetite much improved now, noted to be accidently taking other's food. Sleep appears intact as well. Patient is refusing evening medications. Patient noted to exercise on the unit with no prompting. Suicidal Ideation: None Homicidal Ideation: None [facility] - Objective Physical Exam Vital Signs Hematology Test 01/22/18 00:00 01/22/18 07:10 01/22/18 14:48 01/27/18 11:32 Vitamin D 25-Hydroxy 34 ng/ml (30-100) Free Thyroxine 1.25 ng/dl (0.78-2.19) Free Triiodothyronine 2.5 pg/mL (2.4-4.2) Urine Opiates Screen Negative Urine Barbiturates Screen Negative Ur Tricyclic Antidepressants Screen Negative Urine Phencyclidine Screen Negative Urine Amphetamines Screen Negative Urine Benzodiazepines Screen Negative Urine Cocaine Screen Negative Urine Cannabinoids Screen Negative Vitamin B12 Level 591 pg/mL (180-914) Folate 20.2 ng/mL (>=5.9) Whole Blood Glucose 134 mg/DL (75-110) Test 01/27/18 11:33 Red Blood Count 4.90 M/uL (4.00-5.60) Mean Corpuscular Volume 87.4 fL (80.0-96.0) Mean Corpuscular Hemoglobin 29.1 pg (26.0-33.0) Mean Corpuscular Hemoglobin Concent 33.3 g/dL (32.0-36.0) Red Cell Distribution Width 13.5 % (11.5-14.5) Mean Platelet Volume 8.0 fL (7.2-11.1) Neutrophils (%) (Auto) 77.1 % (39.4-72.5) Lymphocytes (%) (Auto) 12.6 % (17.6-49.6) Monocytes (%) (Auto) 7.5 % (4.1-12.4) Eosinophils (%) (Auto) 1.6 % (0.4-6.7) Basophils (%) (Auto) 1.2 % (0.3-1.4) Nucleated RBC Relative Count (auto) 0.1 /100WBC Neutrophils # (Auto) 4.4 K/uL (2.0-7.4) Lymphocytes # (Auto) 0.7 K/uL (1.3-3.6) Monocytes # (Auto) 0.4 K/uL (0.3-1.0) Eosinophils # (Auto) 0.1 K/uL (0.0-0.5) Basophils # (Auto) 0.1 K/uL (0.0-0.1) Nucleated RBC Absolute Count (auto) 0.00 K/uL Urine Color Kristen Urine Clarity Slightly-cloudy Urine pH 5.0 pH (4.8-9.5) Urine Specific [place] 1.024 Urine Protein Negative mg/dL (NEGATIVE) Urine Glucose (UA) Negative mg/dL (NEGATIVE) Urine Ketones Negative mg/dL (NEGATIVE) Urine Blood Negative (NEGATIVE) Urine Nitrite Negative (NEGATIVE) Urine Bilirubin Negative (NEGATIVE) Urine Urobilinogen 4.0 mg/dL (0.2-1.9) Urine Leukocyte Esterase Negative (NEGATIVE) Urine RBC None /HPF (0-2/HPF) Urine WBC 1 /HPF (0-5/HPF) Urine Squamous Epithelial Cells Few /LPF (</=FEW) Urine Bacteria Few /HPF (NONE-FEW) Urine Hyaline Casts Few /LPF (NONE-FEW) Urine Mucus Few /HPF (NONE-FEW) Sodium Level 141 mmol/L (137-145) Potassium Level 3.8 mmol/L (3.5-5.0) Chloride Level 101 mmol/L (98-107) Carbon Dioxide Level 27 mmol/L (22-30) Blood Urea Nitrogen 17 mg/dl (9-21) Creatinine 0.80 mg/dl (0.66-1.25) Glomerular Filtration Rate Calc > 60.0 Random Glucose 166 mg/dl (75-110) Calcium Level 8.8 mg/dl (8.4-10.2) Total Bilirubin 1.1 mg/dl (0.2-1.3) Aspartate Amino Transf (AST/SGOT) 22 U/L (0-35) Alanine Aminotransferase (ALT/SGPT) 26 U/L (0-56) Alkaline Phosphatase 83 U/L (0-126) Total Protein 6.5 g/dl (6.3-8.2) Albumin 3.8 g/dl (3.5-5.0) Chemistry Test 01/22/18 00:00 01/22/18 07:10 01/22/18 14:48 01/27/18 11:32 Vitamin D 25-Hydroxy 34 ng/ml (30-100) Free Thyroxine 1.25 ng/dl (0.78-2.19) Free Triiodothyronine 2.5 pg/mL (2.4-4.2) Urine Opiates Screen Negative Urine Barbiturates Screen Negative Ur Tricyclic Antidepressants Screen Negative Urine Phencyclidine Screen Negative Urine Amphetamines Screen Negative Urine Benzodiazepines Screen Negative Urine Cocaine Screen Negative Urine Cannabinoids Screen Negative Vitamin B12 Level 591 pg/mL (180-914) Folate 20.2 ng/mL (>=5.9) Whole Blood Glucose 134 mg/DL (75-110) Test 01/27/18 11:33 White Blood Count 5.7 k/uL (4.5-11.0) Red Blood Count 4.90 M/uL (4.00-5.60) Hemoglobin 14.3 g/dL (14.0-18.0) Hematocrit 42.8 % (42.0-52.0) Mean Corpuscular Volume 87.4 fL (80.0-96.0) Mean Corpuscular Hemoglobin 29.1 pg (26.0-33.0) Mean Corpuscular Hemoglobin Concent 33.3 g/dL (32.0-36.0) Red Cell Distribution Width 13.5 % (11.5-14.5) Platelet Count 377 K/uL (150-450) Mean Platelet Volume 8.0 fL (7.2-11.1) Neutrophils (%) (Auto) 77.1 % (39.4-72.5) Lymphocytes (%) (Auto) 12.6 % (17.6-49.6) Monocytes (%) (Auto) 7.5 % (4.1-12.4) Eosinophils (%) (Auto) 1.6 % (0.4-6.7) Basophils (%) (Auto) 1.2 % (0.3-1.4) Nucleated RBC Relative Count (auto) 0.1 /100WBC Neutrophils # (Auto) 4.4 K/uL (2.0-7.4) Lymphocytes # (Auto) 0.7 K/uL (1.3-3.6) Monocytes # (Auto) 0.4 K/uL (0.3-1.0) Eosinophils # (Auto) 0.1 K/uL (0.0-0.5) Basophils # (Auto) 0.1 K/uL (0.0-0.1) Nucleated RBC Absolute Count (auto) 0.00 K/uL Urine Color Kristen Urine Clarity Slightly-cloudy Urine pH 5.0 pH (4.8-9.5) Urine Specific [place] 1.024 Urine Protein Negative mg/dL (NEGATIVE) Urine Glucose (UA) Negative mg/dL (NEGATIVE) Urine Ketones Negative mg/dL (NEGATIVE) Urine Blood Negative (NEGATIVE) Urine Nitrite Negative (NEGATIVE) Urine Bilirubin Negative (NEGATIVE) Urine Urobilinogen 4.0 mg/dL (0.2-1.9) Urine Leukocyte Esterase Negative (NEGATIVE) Urine RBC None /HPF (0-2/HPF) Urine WBC 1 /HPF (0-5/HPF) Urine Squamous Epithelial Cells Few /LPF (</=FEW) Urine Bacteria Few /HPF (NONE-FEW) Urine Hyaline Casts Few /LPF (NONE-FEW) Urine Mucus Few /HPF (NONE-FEW) Glomerular Filtration Rate Calc > 60.0 Calcium Level 8.8 mg/dl (8.4-10.2) Total Bilirubin 1.1 mg/dl (0.2-1.3) Aspartate Amino Transf (AST/SGOT) 22 U/L (0-35) Alanine Aminotransferase (ALT/SGPT) 26 U/L (0-56) Alkaline Phosphatase 83 U/L (0-126) Total Protein 6.5 g/dl (6.3-8.2) Albumin 3.8 g/dl (3.5-5.0) Toxicology Test 01/22/18 07:10 Urine Opiates Screen Negative Urine Barbiturates Screen Negative Ur Tricyclic Antidepressants Screen Negative Urine Phencyclidine Screen Negative Urine Amphetamines Screen Negative Urine Benzodiazepines Screen Negative Urine Cocaine Screen Negative Urine Cannabinoids Screen Negative Urinalysis Test 01/27/18 11:33 Urine Color Kristen Urine Clarity Slightly-cloudy Urine pH 5.0 pH (4.8-9.5) Urine Specific [place] 1.024 Urine Protein Negative mg/dL (NEGATIVE) Urine Glucose (UA) Negative mg/dL (NEGATIVE) Urine Ketones Negative mg/dL (NEGATIVE) Urine Blood Negative (NEGATIVE) Urine Nitrite Negative (NEGATIVE) Urine Bilirubin Negative (NEGATIVE) Urine Urobilinogen 4.0 mg/dL (0.2-1.9) Urine Leukocyte Esterase Negative (NEGATIVE) Urine RBC None /HPF (0-2/HPF) Urine WBC 1 /HPF (0-5/HPF) Urine Squamous Epithelial Cells Few /LPF (</=FEW) Urine Bacteria Few /HPF (NONE-FEW) Urine Hyaline Casts Few /LPF (NONE-FEW) Urine Mucus Few /HPF (NONE-FEW) Vital Signs Date Time Temp Pulse Resp B/P (MAP) Pulse Ox O2 Delivery O2 Flow Rate FiO2 01/30/18 06:23 97.1 54 142/70 (94) 95 Room Air Muscle Strength and Tone: WNL Gait and Station: Steady [facility] Medications Reviewed: Side Effects, Benefits of Medication, Risks Allergies Reviewed: Yes Mental Status Exam General Appearance: Casual, Good Eye Contact (at times), Cooperative, Polite, Unkept (somewhat, ); No Psychomotor Agitation, No Psychomotor Retardation, No Bizarre Mannerisms, No Tics Speech: Clear, Spontaneous, Normal Rate, Normal Rhythm, Normal Volume, Normal Tone, Rambling (repeating previous converstations ); No Inappropriate Mood: Dysthmic/Depressed (frustrated) Affect: Calm; No Withdrawn, No Tearful; Anxious (at times); No Agitated Thought Process: No Organized, No Logical, No Loose Associations, No Flight of Ideas; Other (Perseverates) Thought Content: No Suicidal Ideation, No Homicidal Ideation, No Delusions, No Auditory Halllucinations, No Visual Hallucinations, No Thought Broadcasting, No Ideas of Reference, No Obsessions, No Compulsions, No Other Cognition: Alert & Oriented-Person; No Alert & Oriented-Place, No Alert & Oriented-Time, No Fsqxw-Wzcfqekj-Fnwjsfjjg Memory: No Immediate, No Recent; Remote (some remote memory appears intact); No Other Intelligence: Average (historically likely to be average ) Insight Judgment: Poor (inability to care for self in what 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 ) Result Diagram: 01/27/18 1133 01/27/18 1133 [facility] Assessment and Plan Zlwe-il-Ouct Encounter Date: Jan 30, 2018 Pwgq-lp-Wbgv Encounter Time: 09:15 [facility] Plan: Necessary Precautions, Individual/Group Therapy, Admin/Titrate Meds, Educate Patient Tobacco Medications: Not Appropriate Condition Multpiple Antipsychotics Used: No Problems: (1) Major neurocognitive disorder Status: Chronic Assessment & Plan: patient in need of retirement placement, and guardianship Condition 1. continue to evaluate patient fiances. 2. patient in need of retirement care placement for dementia. 3. Patient in need of hearing as well, and guardianship, as of yet no family members can be found. LINWOOD GIRON MD Jan 30, 2018 09:42
[2018-01-30] MEDS: OLANZapine 5 MG TAB PO SCH (21:00)
[2018-01-30] MEDS: DONEPEZIL HCL 5 MG TAB PO SCH (21:00)
[2018-01-30 21:33] VITALS: BP 143/96
[2018-01-31 06:37] VITALS: BP 172/73
[2018-01-31] MEDS: CHOLECALCIFEROL 1000 UNIT TAB PO SCH ×2 (08:28→09:00)
[2018-01-31] MEDS: CYANOCOBALAMIN 1000 MCG TAB PO SCH ×2 (08:28→09:00)
[2018-01-31] MEDS: THIAMINE HCL 100 MG TAB PO SCH ×2 (08:28→09:00)
[2018-01-31] MEDS: FOLIC ACID 1 MG TAB PO SCH ×2 (08:28→09:00)
[2018-01-31] MEDS: OMEGA-3 500 MG CAP PO SCH ×2 (08:28→09:00)
[2018-01-31] MEDS: MULTIVITAMINS TAB PO SCH ×2 (08:42→09:00)
--- NOTE | 2018-01-31 09:29 | BHS Progress Note ---
S - Subjective Progress Notes Subjective "I'm in here in this hospital but it wasn't because of anything I did. I didn't ask to do it. I was standing in the alley and the police showed up and grabbed me and took me away." Unable to give last current address, denies need for hospitalization Slightly irritated during interview Reports sleep, energy level and appetite sufficient Suicidal Ideation: None Homicidal Ideation: None S - Objective Physical Exam Vital Signs Vital Signs Date Time Temp Pulse Resp B/P (MAP) Pulse Ox O2 Delivery O2 Flow Rate FiO2 01/31/18 06:37 97.4 62 172/73 (106) 90 Room Air Muscle Strength and Tone: WNL Gait and Station: Steady S Medications Reviewed: Side Effects, Benefits of Medication, Risks Allergies Reviewed: Yes Mental Status Exam General Appearance: Casual, Good Eye Contact (at times), Cooperative, Polite, Unkept (somewhat, ); No Psychomotor Agitation, No Psychomotor Retardation, No Bizarre Mannerisms, No Tics Speech: Clear, Spontaneous, Normal Rate, Normal Rhythm, Normal Volume, Normal Tone, Rambling (repeating previous converstations ); No Inappropriate Mood: Dysthmic/Depressed (frustrated) Affect: No Calm, No Withdrawn, No Tearful; Anxious (at times), Agitated Thought Process: No Organized, No Logical, No Loose Associations, No Flight of Ideas; Other (Perseverates) Thought Content: No Suicidal Ideation, No Homicidal Ideation, No Delusions, No Auditory Halllucinations, No Visual Hallucinations, No Thought Broadcasting, No Ideas of Reference, No Obsessions, No Compulsions, No Other Cognition: Alert & Oriented-Person; No Alert & Oriented-Place, No Alert & Oriented-Time, No Sdtbw-Fdkyvydy-Avrkcxcla Memory: No Immediate, No Recent; Remote (some remote memory appears intact); No Other Intelligence: Average (historically likely to be average ) Insight Judgment: Poor (inability to care for self in what 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 ) Result Diagram: 01/27/18 1133 01/27/18 1133 Microbiology Allergies Coded Allergies No Known Drug Allergies (Unverified01/21/18) Imaging Vital Signs Date Time Temp Pulse Resp B/P (MAP) Pulse Ox O2 Delivery O2 Flow Rate FiO2 01/31/18 06:37 97.4 62 172/73 (106) 90 Room Air [facility] Assessment and Plan Hyum-fq-Mvfj Encounter Date: Jan 31, 2018 Jbks-sx-Potq Encounter Time: 09:26 [facility] Plan: Necessary Precautions, Individual/Group Therapy, Admin/Titrate Meds, Educate Patient Tobacco Medications: Not Appropriate Condition Multpiple Antipsychotics Used: No Problems: (1) Major neurocognitive disorder Status: Chronic (2) Altered mental status, unspecified Status: Acute Condition Encourage medications Maintain precautions Hearing set for Friday02/02/18 PA SAEED NP Jan 31, 2018 09:29
[2018-01-31 21:31] VITALS: BP 155/93
[2018-02-01] MEDS: OMEGA-3 500 MG CAP PO SCH (08:12)
[2018-02-01] MEDS: THIAMINE HCL 100 MG TAB PO SCH (08:13)
[2018-02-01] MEDS: MULTIVITAMINS TAB PO SCH (08:13)
[2018-02-01] MEDS: CYANOCOBALAMIN 1000 MCG TAB PO SCH (08:13)
[2018-02-01] MEDS: FOLIC ACID 1 MG TAB PO SCH (08:13)
[2018-02-01] MEDS: CHOLECALCIFEROL 1000 UNIT TAB PO SCH (08:14)
--- NOTE | 2018-02-01 10:44 | BHS Progress Note ---
[facility] - Subjective Progress Notes Subjective "I shouldn't be here. I was minding my own business and on my bicycvle and looking for a place to live when four security police showed up and brought me here." Disoriented to time, date place and situation Irritable this am, yesterday broke dressor away from wall requiring closure of room, denies that he damaged room Denies need for hospitalization Refusing of medications Suicidal Ideation: None Homicidal Ideation: None [facility] - Objective Physical Exam Vital Signs Vital Signs Date Time Temp Pulse Resp B/P (MAP) Pulse Ox O2 Delivery O2 Flow Rate FiO2 01/31/18 21:31 97.0 60 155/93 (113) 96 Room Air Muscle Strength and Tone: WNL Gait and Station: Steady [facility] Medications Reviewed: Side Effects, Benefits of Medication, Risks Allergies Reviewed: Yes Mental Status Exam General Appearance: Casual, Good Eye Contact (at times), Cooperative, Polite, Unkept (somewhat, ); No Psychomotor Agitation, No Psychomotor Retardation, No Bizarre Mannerisms, No Tics Speech: Clear, Spontaneous, Normal Rate, Normal Rhythm, Normal Volume, Normal Tone, Rambling (repeating previous converstations ); No Inappropriate Mood: Dysthmic/Depressed (frustrated) Affect: No Calm, No Withdrawn, No Tearful; Anxious (at times), Agitated Thought Process: No Organized, No Logical, No Loose Associations, No Flight of Ideas; Other (Perseverates) Thought Content: No Suicidal Ideation, No Homicidal Ideation, No Delusions, No Auditory Halllucinations, No Visual Hallucinations, No Thought Broadcasting, No Ideas of Reference, No Obsessions, No Compulsions, No Other Cognition: Alert & Oriented-Person; No Alert & Oriented-Place, No Alert & Oriented-Time, No Iczbg-Gcjbwsfd-Rfucfubak Memory: No Immediate, No Recent; Remote (some remote memory appears intact); No Other Intelligence: Average (historically likely to be average ) Insight Judgment: Poor (inability to care for self in what 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 ) Lab Vital Signs Date Time Temp Pulse Resp B/P (MAP) Pulse Ox O2 Delivery O2 Flow Rate FiO2 01/31/18 21:31 97.0 60 155/93 (113) 96 Room Air [facility] Assessment and Plan Shpu-ww-Diji Encounter Date: Feb 01, 2018 Vhvg-ci-Ncuc Encounter Time: 10:41 [facility] Plan: Necessary Precautions, Individual/Group Therapy, Admin/Titrate Meds, Educate Patient Tobacco Medications: Not Appropriate Condition Multpiple Antipsychotics Used: No Problems: (1) Major neurocognitive disorder Status: Chronic (2) Altered mental status, unspecified Status: Acute Condition Continue seeking appropriate placement Maintain precautions Encourage medication PA SAEED NP Feb 01, 2018 10:44
[2018-02-01 13:40] VITALS: BP 112/70
[2018-02-01] MEDS: OLANZapine 5 MG TAB PO SCH (21:00)
[2018-02-01] MEDS: DONEPEZIL HCL 5 MG TAB PO SCH (21:00)
--- NOTE | 2018-02-02 08:58 | BHS Progress Note ---
[facility] - Subjective Progress Notes Subjective Patient greeting this provider asking "What is your purpose here?" Patient later demonstrating no memory of the conversation. hearing today for 10 day hold, patient will need guardianship and placement in dementia unit. Suicidal Ideation: None Homicidal Ideation: None [facility] - Objective Physical Exam Vital Signs Vital Signs Date Time Temp Pulse Resp B/P (MAP) Pulse Ox O2 Delivery O2 Flow Rate FiO2 02/01/18 13:40 98.2 63 18 112/70 (84) 94 Room Air Muscle Strength and Tone: WNL Gait and Station: Steady [facility] Medications Reviewed: Side Effects, Benefits of Medication, Risks Allergies Reviewed: Yes Mental Status Exam General Appearance: Casual, Unkept Speech: Rambling Mood: Dysthmic/Depressed (frustrated) Affect: Anxious, Agitated Thought Process: No Loose Associations, No Flight of Ideas; Other (Perseverates) Thought Content: Suicidal Ideation (Denies), Other (Some paranoia that others enjoy "torturing me for no reason.") Cognition: Alert & Oriented-Person; No Alert & Oriented-Place (Believes the hospital is a [place] [facility], or says he feels as though the hospital is a [place] [facility] No Alert & Oriented-Time, No Cavgs-Plfdyszw-Dpdxodvbz Memory: Other (Memory is problematic, repeats himself for hours on end.) Intelligence: Average Insight Judgment: Poor (secondary to advancing dementia. ) [facility] Assessment and Plan Cxhn-on-Rnmx Encounter Date: Feb 02, 2018 Adnf-bu-Kzhr Encounter Time: 08:00 [facility] Plan: Necessary Precautions, Individual/Group Therapy, Admin/Titrate Meds, Educate Patient Tobacco Medications: Not Appropriate Condition Multpiple Antipsychotics Used: No Problems: (1) Major neurocognitive disorder Status: Chronic Assessment & Plan: patient in need of group home placement, and guardianship Condition 1. continue treatment 2. look for placement, in dementia unit 3. schedule hearing. LINWOOD GIRON MD Feb 02, 2018 08:58
[2018-02-02] MEDS: THIAMINE HCL 100 MG TAB PO SCH (09:00)
[2018-02-02] MEDS: OMEGA-3 500 MG CAP PO SCH (09:00)
[2018-02-02] MEDS: MULTIVITAMINS TAB PO SCH (09:00)
[2018-02-02] MEDS: CHOLECALCIFEROL 1000 UNIT TAB PO SCH (09:00)
[2018-02-02] MEDS: CYANOCOBALAMIN 1000 MCG TAB PO SCH (09:00)
[2018-02-02] MEDS: FOLIC ACID 1 MG TAB PO SCH (09:00)
[2018-02-02] MEDS: OLANZapine 5 MG TAB PO SCH (21:00)
[2018-02-02] MEDS: DONEPEZIL HCL 5 MG TAB PO SCH (21:00)
[2018-02-03] MEDS: THIAMINE HCL 100 MG TAB PO SCH (08:18)
[2018-02-03] MEDS: FOLIC ACID 1 MG TAB PO SCH (08:18)
[2018-02-03] MEDS: MULTIVITAMINS TAB PO SCH (08:18)
[2018-02-03] MEDS: CYANOCOBALAMIN 1000 MCG TAB PO SCH (08:18)
[2018-02-03] MEDS: CHOLECALCIFEROL 1000 UNIT TAB PO SCH (08:18)
[2018-02-03] MEDS: OMEGA-3 500 MG CAP PO SCH (08:18)
--- NOTE | 2018-02-03 11:37 | BHS Progress Note ---
[facility] - Subjective Progress Notes Subjective Patient continues to be frustrated with almost no immediate memory. Patient requiring be moved to segregation area last PM, after threats of harming staff, and barricading himself in room. Appetite good and sleep okay now. Patient continues to refuse medications. Suicidal Ideation: None Homicidal Ideation: None S - Objective Physical Exam Vital Signs Hematology Test 01/22/18 00:00 01/22/18 07:10 01/22/18 14:48 01/27/18 11:32 Vitamin D 25-Hydroxy 34 ng/ml (30-100) Free Thyroxine 1.25 ng/dl (0.78-2.19) Free Triiodothyronine 2.5 pg/mL (2.4-4.2) Urine Opiates Screen Negative Urine Barbiturates Screen Negative Ur Tricyclic Antidepressants Screen Negative Urine Phencyclidine Screen Negative Urine Amphetamines Screen Negative Urine Benzodiazepines Screen Negative Urine Cocaine Screen Negative Urine Cannabinoids Screen Negative Vitamin B12 Level 591 pg/mL (180-914) Folate 20.2 ng/mL (>=5.9) Whole Blood Glucose 134 mg/DL (75-110) Test 01/27/18 11:33 Red Blood Count 4.90 M/uL (4.00-5.60) Mean Corpuscular Volume 87.4 fL (80.0-96.0) Mean Corpuscular Hemoglobin 29.1 pg (26.0-33.0) Mean Corpuscular Hemoglobin Concent 33.3 g/dL (32.0-36.0) Red Cell Distribution Width 13.5 % (11.5-14.5) Mean Platelet Volume 8.0 fL (7.2-11.1) Neutrophils (%) (Auto) 77.1 % (39.4-72.5) Lymphocytes (%) (Auto) 12.6 % (17.6-49.6) Monocytes (%) (Auto) 7.5 % (4.1-12.4) Eosinophils (%) (Auto) 1.6 % (0.4-6.7) Basophils (%) (Auto) 1.2 % (0.3-1.4) Nucleated RBC Relative Count (auto) 0.1 /100WBC Neutrophils # (Auto) 4.4 K/uL (2.0-7.4) Lymphocytes # (Auto) 0.7 K/uL (1.3-3.6) Monocytes # (Auto) 0.4 K/uL (0.3-1.0) Eosinophils # (Auto) 0.1 K/uL (0.0-0.5) Basophils # (Auto) 0.1 K/uL (0.0-0.1) Nucleated RBC Absolute Count (auto) 0.00 K/uL Urine Color Kristen Urine Clarity Slightly-cloudy Urine pH 5.0 pH (4.8-9.5) Urine Specific [place] 1.024 Urine Protein Negative mg/dL (NEGATIVE) Urine Glucose (UA) Negative mg/dL (NEGATIVE) Urine Ketones Negative mg/dL (NEGATIVE) Urine Blood Negative (NEGATIVE) Urine Nitrite Negative (NEGATIVE) Urine Bilirubin Negative (NEGATIVE) Urine Urobilinogen 4.0 mg/dL (0.2-1.9) Urine Leukocyte Esterase Negative (NEGATIVE) Urine RBC None /HPF (0-2/HPF) Urine WBC 1 /HPF (0-5/HPF) Urine Squamous Epithelial Cells Few /LPF (</=FEW) Urine Bacteria Few /HPF (NONE-FEW) Urine Hyaline Casts Few /LPF (NONE-FEW) Urine Mucus Few /HPF (NONE-FEW) Sodium Level 141 mmol/L (137-145) Potassium Level 3.8 mmol/L (3.5-5.0) Chloride Level 101 mmol/L (98-107) Carbon Dioxide Level 27 mmol/L (22-30) Blood Urea Nitrogen 17 mg/dl (9-21) Creatinine 0.80 mg/dl (0.66-1.25) Glomerular Filtration Rate Calc > 60.0 Random Glucose 166 mg/dl (75-110) Calcium Level 8.8 mg/dl (8.4-10.2) Total Bilirubin 1.1 mg/dl (0.2-1.3) Aspartate Amino Transf (AST/SGOT) 22 U/L (0-35) Alanine Aminotransferase (ALT/SGPT) 26 U/L (0-56) Alkaline Phosphatase 83 U/L (0-126) Total Protein 6.5 g/dl (6.3-8.2) Albumin 3.8 g/dl (3.5-5.0) Chemistry Test 01/22/18 00:00 01/22/18 07:10 01/22/18 14:48 9/4/18 11:32 Vitamin D 25-Hydroxy 34 ng/ml (30-100) Free Thyroxine 1.25 ng/dl (0.78-2.19) Free Triiodothyronine 2.5 pg/mL (2.4-4.2) Urine Opiates Screen Negative Urine Barbiturates Screen Negative Ur Tricyclic Antidepressants Screen Negative Urine Phencyclidine Screen Negative Urine Amphetamines Screen Negative Urine Benzodiazepines Screen Negative Urine Cocaine Screen Negative Urine Cannabinoids Screen Negative Vitamin B12 Level 591 pg/mL (180-914) Folate 20.2 ng/mL (>=5.9) Whole Blood Glucose 134 mg/DL (75-110) Test 01/27/18 11:33 White Blood Count 5.7 k/uL (4.5-11.0) Red Blood Count 4.90 M/uL (4.00-5.60) Hemoglobin 14.3 g/dL (14.0-18.0) Hematocrit 42.8 % (42.0-52.0) Mean Corpuscular Volume 87.4 fL (80.0-96.0) Mean Corpuscular Hemoglobin 29.1 pg (26.0-33.0) Mean Corpuscular Hemoglobin Concent 33.3 g/dL (32.0-36.0) Red Cell Distribution Width 13.5 % (11.5-14.5) Platelet Count 377 K/uL (150-450) Mean Platelet Volume 8.0 fL (7.2-11.1) Neutrophils (%) (Auto) 77.1 % (39.4-72.5) Lymphocytes (%) (Auto) 12.6 % (17.6-49.6) Monocytes (%) (Auto) 7.5 % (4.1-12.4) Eosinophils (%) (Auto) 1.6 % (0.4-6.7) Basophils (%) (Auto) 1.2 % (0.3-1.4) Nucleated RBC Relative Count (auto) 0.1 /100WBC Neutrophils # (Auto) 4.4 K/uL (2.0-7.4) Lymphocytes # (Auto) 0.7 K/uL (1.3-3.6) Monocytes # (Auto) 0.4 K/uL (0.3-1.0) Eosinophils # (Auto) 0.1 K/uL (0.0-0.5) Basophils # (Auto) 0.1 K/uL (0.0-0.1) Nucleated RBC Absolute Count (auto) 0.00 K/uL Urine Color Kristen Urine Clarity Slightly-cloudy Urine pH 5.0 pH (4.8-9.5) Urine Specific [place] 1.024 Urine Protein Negative mg/dL (NEGATIVE) Urine Glucose (UA) Negative mg/dL (NEGATIVE) Urine Ketones Negative mg/dL (NEGATIVE) Urine Blood Negative (NEGATIVE) Urine Nitrite Negative (NEGATIVE) Urine Bilirubin Negative (NEGATIVE) Urine Urobilinogen 4.0 mg/dL (0.2-1.9) Urine Leukocyte Esterase Negative (NEGATIVE) Urine RBC None /HPF (0-2/HPF) Urine WBC 1 /HPF (0-5/HPF) Urine Squamous Epithelial Cells Few /LPF (</=FEW) Urine Bacteria Few /HPF (NONE-FEW) Urine Hyaline Casts Few /LPF (NONE-FEW) Urine Mucus Few /HPF (NONE-FEW) Glomerular Filtration Rate Calc > 60.0 Calcium Level 8.8 mg/dl (8.4-10.2) Total Bilirubin 1.1 mg/dl (0.2-1.3) Aspartate Amino Transf (AST/SGOT) 22 U/L (0-35) Alanine Aminotransferase (ALT/SGPT) 26 U/L (0-56) Alkaline Phosphatase 83 U/L (0-126) Total Protein 6.5 g/dl (6.3-8.2) Albumin 3.8 g/dl (3.5-5.0) Toxicology Test 01/22/18 07:10 Urine Opiates Screen Negative Urine Barbiturates Screen Negative Ur Tricyclic Antidepressants Screen Negative Urine Phencyclidine Screen Negative Urine Amphetamines Screen Negative Urine Benzodiazepines Screen Negative Urine Cocaine Screen Negative Urine Cannabinoids Screen Negative Urinalysis Test 01/27/18 11:33 Urine Color Kristen Urine Clarity Slightly-cloudy Urine pH 5.0 pH (4.8-9.5) Urine Specific [place]une 1.024 Urine Protein Negative mg/dL (NEGATIVE) Urine Glucose (UA) Negative mg/dL (NEGATIVE) Urine Ketones Negative mg/dL (NEGATIVE) Urine Blood Negative (NEGATIVE) Urine Nitrite Negative (NEGATIVE) Urine Bilirubin Negative (NEGATIVE) Urine Urobilinogen 4.0 mg/dL (0.2-1.9) Urine Leukocyte Esterase Negative (NEGATIVE) Urine RBC None /HPF (0-2/HPF) Urine WBC 1 /HPF (0-5/HPF) Urine Squamous Epithelial Cells Few /LPF (</=FEW) Urine Bacteria Few /HPF (NONE-FEW) Urine Hyaline Casts Few /LPF (NONE-FEW) Urine Mucus Few /HPF (NONE-FEW) Vital Signs Date Time Temp Pulse Resp B/P (MAP) Pulse Ox O2 Delivery O2 Flow Rate FiO2 02/01/18 13:40 98.2 63 18 112/70 (84) 94 Room Air Muscle Strength and Tone: WNL Gait and Station: Steady [facility] Medications Reviewed: Side Effects, Benefits of Medication, Risks Allergies Reviewed: Yes Mental Status Exam General Appearance: Casual, Unkept, Psychomotor Agitation (at times); No Psychomotor Retardation, No Bizarre Mannerisms, No Tics Speech: Clear, Spontaneous, Normal Rate, Normal Volume, Rambling (at times) Mood: Dysthmic/Depressed (frustrated) Affect: Anxious, Agitated Thought Process: No Loose Associations, No Flight of Ideas; Other (Perseverates) Thought Content: Suicidal Ideation (Denies), Other (paranoia associated with dementia) Cognition: Alert & Oriented-Person; No Alert & Oriented-Place (Believes the hospital is a nursing home, or says he feels as though the hospital is a nursing home.), No Alert & Oriented-Time, No Ymien-Pbvhefms-Tuleteqhd Memory: Other (Memory is problematic, repeats himself for hours on end.) Intelligence: Average Insight Judgment: Poor (secondary to advancing dementia. ) [facility] Assessment and Plan Ampo-uf-Zhhl Encounter Date: Feb 03, 2018 Ckof-uv-Pyjg Encounter Time: 09:00 [facility] Plan: Necessary Precautions, Individual/Group Therapy, Admin/Titrate Meds, Educate Patient Tobacco Medications: Not Appropriate Condition Multpiple Antipsychotics Used: No Problems: (1) Major neurocognitive disorder Status: Chronic Assessment & Plan: patient in need of ad terminal makeup operator placement, and guardianship Condition 1. continue treatment. 2. in need of placement in dementia sneed. 3. in need LINWOOD Benitez MD Feb 03, 2018 11:37
[2018-02-03] MEDS: DONEPEZIL HCL 5 MG TAB PO SCH (21:00)
[2018-02-03] MEDS: OLANZapine 5 MG TAB PO SCH (21:00)
[2018-02-04] MEDS: OMEGA-3 500 MG CAP PO SCH (08:06)
[2018-02-04] MEDS: FOLIC ACID 1 MG TAB PO SCH (08:06)
[2018-02-04] MEDS: MULTIVITAMINS TAB PO SCH (08:06)
[2018-02-04] MEDS: CYANOCOBALAMIN 1000 MCG TAB PO SCH (08:07)
[2018-02-04] MEDS: CHOLECALCIFEROL 1000 UNIT TAB PO SCH (08:07)
[2018-02-04] MEDS: THIAMINE HCL 100 MG TAB PO SCH (08:07)
--- NOTE | 2018-02-04 11:53 | BHS Progress Note ---
[facility] - Subjective Progress Notes Subjective Patient continues to demonstrate almost non-existent immediate memory, and barricading himself in his room again last PM. Patient eating well and notably interacting well with another patient, appears to sleep fairly well at night. Patient continues to be in need of commitment hearing, guardianship and placement in terminal clerk care facility for likely non-reversible advancing dementia. Suicidal Ideation: None Homicidal Ideation: None [facility] - Objective Physical Exam Vital Signs Vital Signs Date Time Temp Pulse Resp B/P (MAP) Pulse Ox O2 Delivery O2 Flow Rate FiO2 02/01/18 13:40 98.2 63 18 112/70 (84) 94 Room Air Hematology Test 01/22/18 00:00 01/22/18 07:10 01/22/18 14:48 01/27/18 11:32 Vitamin D 25-Hydroxy 34 ng/ml (30-100) Free Thyroxine 1.25 ng/dl (0.78-2.19) Free Triiodothyronine 2.5 pg/mL (2.4-4.2) Urine Opiates Screen Negative Urine Barbiturates Screen Negative Ur Tricyclic Antidepressants Screen Negative Urine Phencyclidine Screen Negative Urine Amphetamines Screen Negative Urine Benzodiazepines Screen Negative Urine Cocaine Screen Negative Urine Cannabinoids Screen Negative Vitamin B12 Level 591 pg/mL (180-914) Folate 20.2 ng/mL (>=5.9) Whole Blood Glucose 134 mg/DL (75-110) Test 01/27/18 11:33 Red Blood Count 4.90 M/uL (4.00-5.60) Mean Corpuscular Volume 87.4 fL (80.0-96.0) Mean Corpuscular Hemoglobin 29.1 pg (26.0-33.0) Mean Corpuscular Hemoglobin Concent 33.3 g/dL (32.0-36.0) Red Cell Distribution Width 13.5 % (11.5-14.5) Mean Platelet Volume 8.0 fL (7.2-11.1) Neutrophils (%) (Auto) 77.1 % (39.4-72.5) Lymphocytes (%) (Auto) 12.6 % (17.6-49.6) Monocytes (%) (Auto) 7.5 % (4.1-12.4) Eosinophils (%) (Auto) 1.6 % (0.4-6.7) Basophils (%) (Auto) 1.2 % (0.3-1.4) Nucleated RBC Relative Count (auto) 0.1 /100WBC Neutrophils # (Auto) 4.4 K/uL (2.0-7.4) Lymphocytes # (Auto) 0.7 K/uL (1.3-3.6) Monocytes # (Auto) 0.4 K/uL (0.3-1.0) Eosinophils # (Auto) 0.1 K/uL (0.0-0.5) Basophils # (Auto) 0.1 K/uL (0.0-0.1) Nucleated RBC Absolute Count (auto) 0.00 K/uL Urine Color Kristen Urine Clarity Slightly-cloudy Urine pH 5.0 pH (4.8-9.5) Urine Specific [place] 1.024 Urine Protein Negative mg/dL (NEGATIVE) Urine Glucose (UA) Negative mg/dL (NEGATIVE) Urine Ketones Negative mg/dL (NEGATIVE) Urine Blood Negative (NEGATIVE) Urine Nitrite Negative (NEGATIVE) Urine Bilirubin Negative (NEGATIVE) Urine Urobilinogen 4.0 mg/dL (0.2-1.9) Urine Leukocyte Esterase Negative (NEGATIVE) Urine RBC None /HPF (0-2/HPF) Urine WBC 1 /HPF (0-5/HPF) Urine Squamous Epithelial Cells Few /LPF (</=FEW) Urine Bacteria Few /HPF (NONE-FEW) Urine Hyaline Casts Few /LPF (NONE-FEW) Urine Mucus Few /HPF (NONE-FEW) Sodium Level 141 mmol/L (137-145) Potassium Level 3.8 mmol/L (3.5-5.0) Chloride Level 101 mmol/L (98-107) Carbon Dioxide Level 27 mmol/L (22-30) Blood Urea Nitrogen 17 mg/dl (9-21) Creatinine 0.80 mg/dl (0.66-1.25) Glomerular Filtration Rate Calc > 60.0 Random Glucose 166 mg/dl (75-110) Calcium Level 8.8 mg/dl (8.4-10.2) Total Bilirubin 1.1 mg/dl (0.2-1.3) Aspartate Amino Transf (AST/SGOT) 22 U/L (0-35) Alanine Aminotransferase (ALT/SGPT) 26 U/L (0-56) Alkaline Phosphatase 83 U/L (0-126) Total Protein 6.5 g/dl (6.3-8.2) Albumin 3.8 g/dl (3.5-5.0) Chemistry Test 01/22/18 00:00 01/22/18 07:10 01/22/18 14:48 01/27/18 11:32 Vitamin D 25-Hydroxy 34 ng/ml (30-100) Free Thyroxine 1.25 ng/dl (0.78-2.19) Free Triiodothyronine 2.5 pg/mL (2.4-4.2) Urine Opiates Screen Negative Urine Barbiturates Screen Negative Ur Tricyclic Antidepressants Screen Negative Urine Phencyclidine Screen Negative Urine Amphetamines Screen Negative Urine Benzodiazepines Screen Negative Urine Cocaine Screen Negative Urine Cannabinoids Screen Negative Vitamin B12 Level 591 pg/mL (180-914) Folate 20.2 ng/mL (>=5.9) Whole Blood Glucose 134 mg/DL (75-110) Test 01/27/18 11:33 White Blood Count 5.7 k/uL (4.5-11.0) Red Blood Count 4.90 M/uL (4.00-5.60) Hemoglobin 14.3 g/dL (14.0-18.0) Hematocrit 42.8 % (42.0-52.0) Mean Corpuscular Volume 87.4 fL (80.0-96.0) Mean Corpuscular Hemoglobin 29.1 pg (26.0-33.0) Mean Corpuscular Hemoglobin Concent 33.3 g/dL (32.0-36.0) Red Cell Distribution Width 13.5 % (11.5-14.5) Platelet Count 377 K/uL (150-450) Mean Platelet Volume 8.0 fL (7.2-11.1) Neutrophils (%) (Auto) 77.1 % (39.4-72.5) Lymphocytes (%) (Auto) 12.6 % (17.6-49.6) Monocytes (%) (Auto) 7.5 % (4.1-12.4) Eosinophils (%) (Auto) 1.6 % (0.4-6.7) Basophils (%) (Auto) 1.2 % (0.3-1.4) Nucleated RBC Relative Count (auto) 0.1 /100WBC Neutrophils # (Auto) 4.4 K/uL (2.0-7.4) Lymphocytes # (Auto) 0.7 K/uL (1.3-3.6) Monocytes # (Auto) 0.4 K/uL (0.3-1.0) Eosinophils # (Auto) 0.1 K/uL (0.0-0.5) Basophils # (Auto) 0.1 K/uL (0.0-0.1) Nucleated RBC Absolute Count (auto) 0.00 K/uL Urine Color Kristen Urine Clarity Slightly-cloudy Urine pH 5.0 pH (4.8-9.5) Urine Specific [place] 1.024 Urine Protein Negative mg/dL (NEGATIVE) Urine Glucose (UA) Negative mg/dL (NEGATIVE) Urine Ketones Negative mg/dL (NEGATIVE) Urine Blood Negative (NEGATIVE) Urine Nitrite Negative (NEGATIVE) Urine Bilirubin Negative (NEGATIVE) Urine Urobilinogen 4.0 mg/dL (0.2-1.9) Urine Leukocyte Esterase Negative (NEGATIVE) Urine RBC None /HPF (0-2/HPF) Urine WBC 1 /HPF (0-5/HPF) Urine Squamous Epithelial Cells Few /LPF (</=FEW) Urine Bacteria Few /HPF (NONE-FEW) Urine Hyaline Casts Few /LPF (NONE-FEW) Urine Mucus Few /HPF (NONE-FEW) Glomerular Filtration Rate Calc > 60.0 Calcium Level 8.8 mg/dl (8.4-10.2) Total Bilirubin 1.1 mg/dl (0.2-1.3) Aspartate Amino Transf (AST/SGOT) 22 U/L (0-35) Alanine Aminotransferase (ALT/SGPT) 26 U/L (0-56) Alkaline Phosphatase 83 U/L (0-126) Total Protein 6.5 g/dl (6.3-8.2) Albumin 3.8 g/dl (3.5-5.0) Toxicology Test 01/22/18 07:10 Urine Opiates Screen Negative Urine Barbiturates Screen Negative Ur Tricyclic Antidepressants Screen Negative Urine Phencyclidine Screen Negative Urine Amphetamines Screen Negative Urine Benzodiazepines Screen Negative Urine Cocaine Screen Negative Urine Cannabinoids Screen Negative Urinalysis Test 01/27/18 11:33 Urine Color Kristen Urine Clarity Slightly-cloudy Urine pH 5.0 pH (4.8-9.5) Urine Specific [place] 1.024 Urine Protein Negative mg/dL (NEGATIVE) Urine Glucose (UA) Negative mg/dL (NEGATIVE) Urine Ketones Negative mg/dL (NEGATIVE) Urine Blood Negative (NEGATIVE) Urine Nitrite Negative (NEGATIVE) Urine Bilirubin Negative (NEGATIVE) Urine Urobilinogen 4.0 mg/dL (0.2-1.9) Urine Leukocyte Esterase Negative (NEGATIVE) Urine RBC None /HPF (0-2/HPF) Urine WBC 1 /HPF (0-5/HPF) Urine Squamous Epithelial Cells Few /LPF (</=FEW) Urine Bacteria Few /HPF (NONE-FEW) Urine Hyaline Casts Few /LPF (NONE-FEW) Urine Mucus Few /HPF (NONE-FEW) Muscle Strength and Tone: WNL Gait and Station: Steady [facility] Medications Reviewed: Side Effects, Benefits of Medication, Risks Allergies Reviewed: Yes Mental Status Exam General Appearance: Casual, Unkept, Psychomotor Agitation (at times); No Psychomotor Retardation, No Bizarre Mannerisms, No Tics Speech: Clear, Spontaneous, Normal Rate, Normal Volume, Rambling (at times) Mood: Dysthmic/Depressed (frustrated) Affect: Anxious, Agitated Thought Process: No Loose Associations, No Flight of Ideas; Other (Perseverates) Thought Content: Suicidal Ideation (Denies), Other (paranoia associated with dementia) Cognition: Alert & Oriented-Person; No Alert & Oriented-Place (Believes the hospital is a [facility], or says he feels as though the hospital is a [facility] No Alert & Oriented-Time, No Jplyg-Ticxccpe-Eihhpydyv Memory: Other (Memory is problematic, repeats himself for hours on end.) Intelligence: Average Insight Judgment: Poor (secondary to advancing dementia. ) [facility] Assessment and Plan Rzwq-wz-Cfge Encounter Date: Feb 04, 2018 Gnjw-xc-Myei Encounter Time: 11:00 [facility] Plan: Necessary Precautions, Individual/Group Therapy, Admin/Titrate Meds, Educate Patient Tobacco Medications: Not Appropriate Condition Multpiple Antipsychotics Used: No Problems: (1) Major neurocognitive disorder Status: Chronic Assessment & Plan: patient in need of senior care placement, and guardianship Condition 1. continue treatment 2. schedule hearing. 3. look into guardianship and placement LINWOOD GIRON MD Feb 04, 2018 11:53
--- NOTE | 2018-02-04 19:16 | BHS - Psychiatric Evaluation ---
Title 25 Evaluation Hearing Report: 110 Date of Report: Feb 04, 2018 Examiner: Rola Stroud M.S., L.P.C. and Rubio Naqvi M.D. Patient Detained By: Law Enforcement 24hr Mental Health Eval By: Dr. Lin, ER Doctor Date Patient Detained: Jan 21, 2018 Time Patient Detained: 17:22 Date Retirement Expires: Feb 12, 2018 Time Retirement Expires: 17:22 Legal Status: Police Hold: No Legal Status: Relationship: Single Legal Status: Residence: [facility] Resident Referral Source: Law Enforcement Assessment Data Provided By: Patient, Law Enforcement, Other Source (Angel Odonnell - LAVONNE Remote Encoding Operations Supervisor) Chief Complaint: Patient brought to ER from Law Enforcement who found him unable to express a cogent plan for safety and care home, on two occasions within the same day. Especially, patient could not identify a javier ronak address. Address he gave was long since vacant, and patient was confused and argumentative. He had $1,000 shelley which he said he intended to use on renting another apartment. HPI/ROS: Per ER Doctor, Dr. Papito Lin, "Patient is an 82-year-old male was walking down the street was confused states that he was trying to find somebody's home that he wanted to buy was observed police were notified EMS on arrival on arrival he was confused is alert to person only and no idea where he lived and no idea the year he had no idea how he got there. History changing he was clearly unable to care for himself police then under advice of states club concierge brought him here under a Title 25 due to incompetence unable to care for oneself and his confusion. He has no back mental history is denying any history at this time patient is refusing to give any additional information other than his name and that he wants to go back home when asked repeatedly where his home is or his address, or if he is he has no recollection an understanding of these questions and has no answers." Diagnosis: 1. Neurocognitive disorder, major, rule out any medical cause. 2. Patient having social isolation. Risk Formulation: Patient is unsafe due to his inability to care for himself. His previous reliance on assistance from DFS has abated, and patient is decompensating. Has an inability to remember his address. When DFS was permitted to support him consistently, he was known to have bed bugs, hygiene problems, paranoia about sharing information about himself, and a general inability to care for himself. He was at one time supplied with a cell phone, but reports it was stolen. Further exploration revealed it was turned off and not accessed for a very long time by patient. Patient lacks the basic ability to care for himself on his own. His memory difficulties have become clinically serious, and he has no short- term memory forgetting people he conversed with thin the same hour. He wondered aloud if his DFS fur dry cleaner who came to visit him at [facility] was his brother. Patient was found with $1000 shelley, and came to the attention of Law Enforcement because a concerned citizen alerted them. Patient could easily be victimized by any person who recognized patient cannot recall names, faces, or his own demographic information, such as a current address. Recommendations of [facility] Team: That the patient be committed [place] [facility] [place] evaluation and stabilization. Patient needs a guardian, as he is not able to be his own guardian any longer. If placement becomes available at a less restrictive facility (alf, rehab facility, supervised living, etc) prior to admission to the [facility] this would be more therapeutic for the patient. Should this happen, we ask that a directed outpatient commitment or convalescent leave be considered upon admission to alternate placement. [facility] will follow patient during admission and after discharge. Patient should be directed to follow up with [facility] after discharge from [facility] or alternate placement. Reliability of Pt-Evidenced By Patient is an unreliable historian on his own behalf, due to dementia. Reliability of Collateral Info Patient DFS worker Angel Odonnell has knowledge of patient's last year of strengths, needs, and services from DFS. Current Dangerous Risk Assess: Other (Unable to care for himself, does not know where he will live beyond being evicted. Does not consistently remember he was evicted.) Current Risk Summary: The patient "evidences behavior manifested by recent acts or omissions that, due to mental illness, the patient is unable to satisfy basic needs for nourishment, essential medical care, care home, or safety so that a substantial probability exists that , serious physical injury, serious physical debilitation, serious mental debilitation, destabilization from lack of or refusal to take prescribed psychotropic medications for a diagnosed condition or serious physical disease will imminently ensue, unless the individual receives prompt and adequate treatment for this mental illness" as evidenced by: Patient is unsafe due to his inability to care for himself. His previous reliance on assistance from DFS has abated, and patient is decompensating. Has an inability to remember his address. When DFS was permitted to support him consistently, he was known to have bed bugs, hygiene problems, paranoia about sharing information about himself, and a general inability to care for himself. He was at one time supplied with a cell phone, but reports it was stolen. Further exploration re vealed it was turned off and not accessed for a very long time by patient. Patient lacks the basic ability to care for himself on his own. His memory difficulties have become clinically serious, and he has no short-term memory forgetting people he conversed with thin the same hour. He wondered aloud if his DFS fur dry cleaner who came to visit him at [facility] was his brother. Patient was found with $1000 shelley, and came to the attention of Law Enforcement because a concerned citizen alerted them. Patient could easily be victimized by any person who recognized patient cannot recall names, faces, or his own demographic information, such as a current address. Past Dangerous Risk Assess: Self-Injurious Behaviors (Patient conserves electricity due to limited funds and could easily conserve beyond his neeed for a comfortable care home.) [facility] - Exam Physical Exam Vital Signs Vital Signs 02/01/18 13:40 Temp 98.2 Pulse 63 Resp 18 B/P (MAP) 112/70 (84) Pulse Ox 94 O2 Delivery Room Air Mental Status Exam General Appearance: Casual, Unkept, Psychomotor Agitation (At times is frustrated and walks in halting manner.); No Psychomotor Retardation, No Bizarre Mannerisms, No Tics Speech: Clear, Spontaneous, Normal Rate, Normal Volume, Rambling (Compelled to tell the same story to the same persons many times without recognition of the person he previously told the story to, or the content of the story.) Mood: Dysthmic/Depressed (Patient verbalizes high frustration, say he feels as though he is in detention.) Affect: Anxious, Agitated Thought Process: No Loose Associations, No Flight of Ideas; Other (Perseverates) Thought Content: Suicidal Ideation (Denies), Other (paranoia associated with dementia) Cognition: Alert & Oriented-Person; No Alert & Oriented-Place (Believes the hospital is a penitentiary, or says he feels as though the hospital is a penitentiary.), No Alert & Oriented-Time, No Bszlh-Ukkviiit-Nxdhxkgly Memory: Other (Memory is problematic, repeats himself for hours on end.) Intelligence: Average Insight Judgment: Poor (Secondary to advancing dementia, cannot make sound plans for safety. ) Care & Behavior on Unit Treatment Team Participation: Patient continues to demonstrate almost non-existent immediate memory, and barricading himself in his room again last PM. Patient eating well and notably interacting well with another patient, appears to sleep fairly well at night. Patient continues to be within a non-reversible advancing dementia. Group Attendance: Often refuses to attend group, does not recognize treatment provider with whom he meets later within the same day. Re-tells the same conversations he has expressed over and over without recognition he has previously many, many times. Behavior on Unit: Broke a furniture item in his room, and often becomes very frustrated, and makes frustrated comments like, "You're no good to me, and not deserving of going home if you don't help me go home." Title 25 History Psychiatric History: This is an 82-year-old male thought to be single his whole life and having no children and no close family and possibly no living family members. Patient was brought into the Emergency Room, again emergency detained after showing significant deficits in memory to local police who had questioned him on the street. Please see ER notes for further details. Patient admitted to the unit without difficulty. Patient irritable at times, but not combative. Patient giving evidence of significant short-term memory loss. Patient demonstrating an inability to remember an object after a minute or so on multiple occasions. Patient disoriented to date, time, somewhat to place, and certainly to situation. Patient overall medically appears well fit for an 82-year-old. DFS has been in contact with the patient previously, and it is notable that patient is, indeed, suffering from long-term confusion and memory impairment. No correctable cause of this dementia appearance was found. It is advancing dementia. Patient appears he will need long-term assisted living with dee dee crane. Collateral information suggests that little mental health history outside of advancing dementia has ever been a problem. Family Psychiatric Hx: This is unknown and unavailable with no known relatives. Social History: Patient is believed to have been born in [place], [place]. Patient reports himself that he may have had some college education. He has never . He has no children, and has no current significant other. Patient alludes that he is, indeed, heterosexual. Currently believed to be living alone, recently potentially evicted from an apartment. Patient is not thought to have suffered any abuse growing. Patient tearful at times when talking about the of his parents whom he reports as several years ago. Prior Hospitalizations: No reason to expect patient has ever had a prior psychiatric hospitalization. Drug & Alcohol Use: Likely unremarkable. Current Living Situation: Patient is evicted from the low cost apartment that DFS helped him to secure. Patient's DFS worker, Angel Odonnell, who has observed patient decompensating further than when patient had an open DFS case as a vulnerable adult, believes it is not in patient's interest to live independently or be his own guardian. Legal Concerns: Unremarkable and/or unknown. Patient Strengths: Good vocabulary and persuasive speaker. Current Medical Data: In a review of patient's systems, patient is in good health for a man his age. Relevant Medications: Zyprexa, an antipsychotic. Occasionally patient refuses to take this medicine. ROLA DE LA ROSA HOTEL RECEPTIONIST Feb 04, 2018 19:16
[2018-02-04] MEDS: DONEPEZIL HCL 5 MG TAB PO SCH (20:35)
[2018-02-04] MEDS: OLANZapine 5 MG TAB PO SCH (20:35)
[2018-02-05] MEDS: FOLIC ACID 1 MG TAB PO SCH (08:36)
[2018-02-05] MEDS: OMEGA-3 500 MG CAP PO SCH (08:36)
[2018-02-05] MEDS: MULTIVITAMINS TAB PO SCH (08:36)
[2018-02-05] MEDS: CYANOCOBALAMIN 1000 MCG TAB PO SCH (08:36)
[2018-02-05] MEDS: THIAMINE HCL 100 MG TAB PO SCH (08:36)
[2018-02-05] MEDS: CHOLECALCIFEROL 1000 UNIT TAB PO SCH (08:36)
--- NOTE | 2018-02-05 11:03 | BHS Progress Note ---
BHS - Subjective Progress Notes Subjective Patient able to remain in room last night, with little barricading. Patient refusing shower, appetite and sleep appear relatively intact. hearing scheduled for next week. needs guardianship, and placement in dedicated intermodal truck driver care. No other concerns, refuses medication. Suicidal Ideation: None Homicidal Ideation: None S - Objective Physical Exam Vital Signs Hematology Test 01/22/18 00:00 01/22/18 07:10 01/22/18 14:48 01/27/18 11:32 Vitamin D 25-Hydroxy 34 ng/ml (30-100) Free Thyroxine 1.25 ng/dl (0.78-2.19) Free Triiodothyronine 2.5 pg/mL (2.4-4.2) Urine Opiates Screen Negative Urine Barbiturates Screen Negative Ur Tricyclic Antidepressants Screen Negative Urine Phencyclidine Screen Negative Urine Amphetamines Screen Negative Urine Benzodiazepines Screen Negative Urine Cocaine Screen Negative Urine Cannabinoids Screen Negative Vitamin B12 Level 591 pg/mL (180-914) Folate 20.2 ng/mL (>=5.9) Whole Blood Glucose 134 mg/DL (75-110) Test 01/27/18 11:33 Red Blood Count 4.90 M/uL (4.00-5.60) Mean Corpuscular Volume 87.4 fL (80.0-96.0) Mean Corpuscular Hemoglobin 29.1 pg (26.0-33.0) Mean Corpuscular Hemoglobin Concent 33.3 g/dL (32.0-36.0) Red Cell Distribution Width 13.5 % (11.5-14.5) Mean Platelet Volume 8.0 fL (7.2-11.1) Neutrophils (%) (Auto) 77.1 % (39.4-72.5) Lymphocytes (%) (Auto) 12.6 % (17.6-49.6) Monocytes (%) (Auto) 7.5 % (4.1-12.4) Eosinophils (%) (Auto) 1.6 % (0.4-6.7) Basophils (%) (Auto) 1.2 % (0.3-1.4) Nucleated RBC Relative Count (auto) 0.1 /100WBC Neutrophils # (Auto) 4.4 K/uL (2.0-7.4) Lymphocytes # (Auto) 0.7 K/uL (1.3-3.6) Monocytes # (Auto) 0.4 K/uL (0.3-1.0) Eosinophils # (Auto) 0.1 K/uL (0.0-0.5) Basophils # (Auto) 0.1 K/uL (0.0-0.1) Nucleated RBC Absolute Count (auto) 0.00 K/uL Urine Color Kristen Urine Clarity Slightly-cloudy Urine pH 5.0 pH (4.8-9.5) Urine Specific Thornton 1.024 Urine Protein Negative mg/dL (NEGATIVE) Urine Glucose (UA) Negative mg/dL (NEGATIVE) Urine Ketones Negative mg/dL (NEGATIVE) Urine Blood Negative (NEGATIVE) Urine Nitrite Negative (NEGATIVE) Urine Bilirubin Negative (NEGATIVE) Urine Urobilinogen 4.0 mg/dL (0.2-1.9) Urine Leukocyte Esterase Negative (NEGATIVE) Urine RBC None /HPF (0-2/HPF) Urine WBC 1 /HPF (0-5/HPF) Urine Squamous Epithelial Cells Few /LPF (</=FEW) Urine Bacteria Few /HPF (NONE-FEW) Urine Hyaline Casts Few /LPF (NONE-FEW) Urine Mucus Few /HPF (NONE-FEW) Sodium Level 141 mmol/L (137-145) Potassium Level 3.8 mmol/L (3.5-5.0) Chloride Level 101 mmol/L (98-107) Carbon Dioxide Level 27 mmol/L (22-30) Blood Urea Nitrogen 17 mg/dl (9-21) Creatinine 0.80 mg/dl (0.66-1.25) Glomerular Filtration Rate Calc > 60.0 Random Glucose 166 mg/dl (75-110) Calcium Level 8.8 mg/dl (8.4-10.2) Total Bilirubin 1.1 mg/dl (0.2-1.3) Aspartate Amino Transf (AST/SGOT) 22 U/L (0-35) Alanine Aminotransferase (ALT/SGPT) 26 U/L (0-56) Alkaline Phosphatase 83 U/L (0-126) Total Protein 6.5 g/dl (6.3-8.2) Albumin 3.8 g/dl (3.5-5.0) Chemistry Test 01/22/18 00:00 01/22/18 07:10 01/22/18 14:48 9/18 11:32 Vitamin D 25-Hydroxy 34 ng/ml (30-100) Free Thyroxine 1.25 ng/dl (0.78-2.19) Free Triiodothyronine 2.5 pg/mL (2.4-4.2) Urine Opiates Screen Negative Urine Barbiturates Screen Negative Ur Tricyclic Antidepressants Screen Negative Urine Phencyclidine Screen Negative Urine Amphetamines Screen Negative Urine Benzodiazepines Screen Negative Urine Cocaine Screen Negative Urine Cannabinoids Screen Negative Vitamin B12 Level 591 pg/mL (180-914) Folate 20.2 ng/mL (>=5.9) Whole Blood Glucose 134 mg/DL (75-110) Test 01/27/18 11:33 White Blood Count 5.7 k/uL (4.5-11.0) Red Blood Count 4.90 M/uL (4.00-5.60) Hemoglobin 14.3 g/dL (14.0-18.0) Hematocrit 42.8 % (42.0-52.0) Mean Corpuscular Volume 87.4 fL (80.0-96.0) Mean Corpuscular Hemoglobin 29.1 pg (26.0-33.0) Mean Corpuscular Hemoglobin Concent 33.3 g/dL (32.0-36.0) Red Cell Distribution Width 13.5 % (11.5-14.5) Platelet Count 377 K/uL (150-450) Mean Platelet Volume 8.0 fL (7.2-11.1) Neutrophils (%) (Auto) 77.1 % (39.4-72.5) Lymphocytes (%) (Auto) 12.6 % (17.6-49.6) Monocytes (%) (Auto) 7.5 % (4.1-12.4) Eosinophils (%) (Auto) 1.6 % (0.4-6.7) Basophils (%) (Auto) 1.2 % (0.3-1.4) Nucleated RBC Relative Count (auto) 0.1 /100WBC Neutrophils # (Auto) 4.4 K/uL (2.0-7.4) Lymphocytes # (Auto) 0.7 K/uL (1.3-3.6) Monocytes # (Auto) 0.4 K/uL (0.3-1.0) Eosinophils # (Auto) 0.1 K/uL (0.0-0.5) Basophils # (Auto) 0.1 K/uL (0.0-0.1) Nucleated RBC Absolute Count (auto) 0.00 K/uL Urine Color Kristen Urine Clarity Slightly-cloudy Urine pH 5.0 pH (4.8-9.5) Urine Specific Thornton 1.024 Urine Protein Negative mg/dL (NEGATIVE) Urine Glucose (UA) Negative mg/dL (NEGATIVE) Urine Ketones Negative mg/dL (NEGATIVE) Urine Blood Negative (NEGATIVE) Urine Nitrite Negative (NEGATIVE) Urine Bilirubin Negative (NEGATIVE) Urine Urobilinogen 4.0 mg/dL (0.2-1.9) Urine Leukocyte Esterase Negative (NEGATIVE) Urine RBC None /HPF (0-2/HPF) Urine WBC 1 /HPF (0-5/HPF) Urine Squamous Epithelial Cells Few /LPF (</=FEW) Urine Bacteria Few /HPF (NONE-FEW) Urine Hyaline Casts Few /LPF (NONE-FEW) Urine Mucus Few /HPF (NONE-FEW) Glomerular Filtration Rate Calc > 60.0 Calcium Level 8.8 mg/dl (8.4-10.2) Total Bilirubin 1.1 mg/dl (0.2-1.3) Aspartate Amino Transf (AST/SGOT) 22 U/L (0-35) Alanine Aminotransferase (ALT/SGPT) 26 U/L (0-56) Alkaline Phosphatase 83 U/L (0-126) Total Protein 6.5 g/dl (6.3-8.2) Albumin 3.8 g/dl (3.5-5.0) Toxicology Test 01/22/18 07:10 Urine Opiates Screen Negative Urine Barbiturates Screen Negative Ur Tricyclic Antidepressants Screen Negative Urine Phencyclidine Screen Negative Urine Amphetamines Screen Negative Urine Benzodiazepines Screen Negative Urine Cocaine Screen Negative Urine Cannabinoids Screen Negative Urinalysis Test 01/27/18 11:33 Urine Color Kristen Urine Clarity Slightly-cloudy Urine pH 5.0 pH (4.8-9.5) Urine Specific Thornton 1.024 Urine Protein Negative mg/dL (NEGATIVE) Urine Glucose (UA) Negative mg/dL (NEGATIVE) Urine Ketones Negative mg/dL (NEGATIVE) Urine Blood Negative (NEGATIVE) Urine Nitrite Negative (NEGATIVE) Urine Bilirubin Negative (NEGATIVE) Urine Urobilinogen 4.0 mg/dL (0.2-1.9) Urine Leukocyte Esterase Negative (NEGATIVE) Urine RBC None /HPF (0-2/HPF) Urine WBC 1 /HPF (0-5/HPF) Urine Squamous Epithelial Cells Few /LPF (</=FEW) Urine Bacteria Few /HPF (NONE-FEW) Urine Hyaline Casts Few /LPF (NONE-FEW) Urine Mucus Few /HPF (NONE-FEW) Vital Signs Date Time Temp Pulse Resp B/P (MAP) Pulse Ox O2 Delivery O2 Flow Rate FiO2 02/01/18 13:40 98.2 63 18 112/70 (84) 94 Room Air Muscle Strength and Tone: WNL Gait and Station: Steady BHS Medications Reviewed: Side Effects, Benefits of Medication, Risks Allergies Reviewed: Yes Mental Status Exam General Appearance: Casual, Unkept, Psychomotor Agitation (At times is frustrated and walks in halting manner.); No Psychomotor Retardation, No Bizarre Mannerisms, No Tics Speech: Clear, Spontaneous, Normal Rate, Normal Volume, Rambling (Compelled to tell the same story to the same persons many times without recognition of the person he previously told the story to, or the content of the story.) Mood: Dysthmic/Depressed (Patient verbalizes high frustration, say he feels as though he is in care home.) Affect: Anxious, Agitated Thought Process: No Loose Associations, No Flight of Ideas; Other (Perseverates) Thought Content: Suicidal Ideation (Denies), Other (paranoia associated with dementia) Cognition: Alert & Oriented-Person; No Alert & Oriented-Place (Believes the hospital is a assisted, or says he feels as though the hospital is a assisted.), No Alert & Oriented-Time, No Wsuzw-Zhajgsyl-Eovhgygfd Memory: Other (Memory is problematic, repeats himself for hours on end.) Intelligence: Average Insight Judgment: Poor (Secondary to advancing dementia, cannot make sound plans for safety. ) [facility] Assessment and Plan [id number] Encounter Date: Feb 05, 2018 Myri-[id number] Encounter Time: 10:30 [facility] Plan: Necessary Precautions, Individual/Group Therapy, Admin/Titrate Meds, Educate Patient Tobacco Medications: Not Appropriate Condition Multpiple Antipsychotics Used: No Problems: (1) Major neurocognitive disorder Status: Chronic Assessment & Plan: patient in need of dedicated intermodal truck driver placement, and guardianship Condition 1. encourage compliance. 2. await hearing. LINWOOD GIRON MD Feb 05, 2018 11:03
[2018-02-05] MEDS: OLANZapine 5 MG TAB PO SCH (21:00)
[2018-02-05] MEDS: DONEPEZIL HCL 5 MG TAB PO SCH (21:00)
[2018-02-06] MEDS: FOLIC ACID 1 MG TAB PO SCH (08:00)
[2018-02-06] MEDS: THIAMINE HCL 100 MG TAB PO SCH (08:00)
[2018-02-06] MEDS: OMEGA-3 500 MG CAP PO SCH (08:00)
[2018-02-06] MEDS: CYANOCOBALAMIN 1000 MCG TAB PO SCH (08:00)
[2018-02-06] MEDS: CHOLECALCIFEROL 1000 UNIT TAB PO SCH (08:00)
[2018-02-06] MEDS: MULTIVITAMINS TAB PO SCH (08:05)
--- NOTE | 2018-02-06 09:09 | BHS Progress Note ---
BHS - Subjective Progress Notes Subjective Patient continues to demonstrate a very minimal immediate memory at best, and therefore remains in need of guardianship and need of fdc placement. Appetite and sleep intact, patient refusing medications at night including aricept and zyprexa, will try to give medications with evening meal. Hearing scheduled for next week. Suicidal Ideation: None Homicidal Ideation: None BHS - Objective Physical Exam Vital Signs Hematology Test 01/22/18 00:00 01/22/18 07:10 01/22/18 14:48 01/27/18 11:32 Vitamin D 25-Hydroxy 34 ng/ml (30-100) Free Thyroxine 1.25 ng/dl (0.78-2.19) Free Triiodothyronine 2.5 pg/mL (2.4-4.2) Urine Opiates Screen Negative Urine Barbiturates Screen Negative Ur Tricyclic Antidepressants Screen Negative Urine Phencyclidine Screen Negative Urine Amphetamines Screen Negative Urine Benzodiazepines Screen Negative Urine Cocaine Screen Negative Urine Cannabinoids Screen Negative Vitamin B12 Level 591 pg/mL (180-914) Folate 20.2 ng/mL (>=5.9) Whole Blood Glucose 134 mg/DL (75-110) Test 01/27/18 11:33 Red Blood Count 4.90 M/uL (4.00-5.60) Mean Corpuscular Volume 87.4 fL (80.0-96.0) Mean Corpuscular Hemoglobin 29.1 pg (26.0-33.0) Mean Corpuscular Hemoglobin Concent 33.3 g/dL (32.0-36.0) Red Cell Distribution Width 13.5 % (11.5-14.5) Mean Platelet Volume 8.0 fL (7.2-11.1) Neutrophils (%) (Auto) 77.1 % (39.4-72.5) Lymphocytes (%) (Auto) 12.6 % (17.6-49.6) Monocytes (%) (Auto) 7.5 % (4.1-12.4) Eosinophils (%) (Auto) 1.6 % (0.4-6.7) Basophils (%) (Auto) 1.2 % (0.3-1.4) Nucleated RBC Relative Count (auto) 0.1 /100WBC Neutrophils # (Auto) 4.4 K/uL (2.0-7.4) Lymphocytes # (Auto) 0.7 K/uL (1.3-3.6) Monocytes # (Auto) 0.4 K/uL (0.3-1.0) Eosinophils # (Auto) 0.1 K/uL (0.0-0.5) Basophils # (Auto) 0.1 K/uL (0.0-0.1) Nucleated RBC Absolute Count (auto) 0.00 K/uL Urine Color Kristen Urine Clarity Slightly-cloudy Urine pH 5.0 pH (4.8-9.5) Urine Specific Redfox 1.024 Urine Protein Negative mg/dL (NEGATIVE) Urine Glucose (UA) Negative mg/dL (NEGATIVE) Urine Ketones Negative mg/dL (NEGATIVE) Urine Blood Negative (NEGATIVE) Urine Nitrite Negative (NEGATIVE) Urine Bilirubin Negative (NEGATIVE) Urine Urobilinogen 4.0 mg/dL (0.2-1.9) Urine Leukocyte Esterase Negative (NEGATIVE) Urine RBC None /HPF (0-2/HPF) Urine WBC 1 /HPF (0-5/HPF) Urine Squamous Epithelial Cells Few /LPF (</=FEW) Urine Bacteria Few /HPF (NONE-FEW) Urine Hyaline Casts Few /LPF (NONE-FEW) Urine Mucus Few /HPF (NONE-FEW) Sodium Level 141 mmol/L (137-145) Potassium Level 3.8 mmol/L (3.5-5.0) Chloride Level 101 mmol/L (98-107) Carbon Dioxide Level 27 mmol/L (22-30) Blood Urea Nitrogen 17 mg/dl (9-21) Creatinine 0.80 mg/dl (0.66-1.25) Glomerular Filtration Rate Calc > 60.0 Random Glucose 166 mg/dl (75-110) Calcium Level 8.8 mg/dl (8.4-10.2) Total Bilirubin 1.1 mg/dl (0.2-1.3) Aspartate Amino Transf (AST/SGOT) 22 U/L (0-35) Alanine Aminotransferase (ALT/SGPT) 26 U/L (0-56) Alkaline Phosphatase 83 U/L (0-126) Total Protein 6.5 g/dl (6.3-8.2) Albumin 3.8 g/dl (3.5-5.0) Chemistry Test 01/22/18 00:00 01/22/18 07:10 01/22/18 14:48 01/27/18 11:32 Vitamin D 25-Hydroxy 34 ng/ml (30-100) Free Thyroxine 1.25 ng/dl (0.78-2.19) Free Triiodothyronine 2.5 pg/mL (2.4-4.2) Urine Opiates Screen Negative Urine Barbiturates Screen Negative Ur Tricyclic Antidepressants Screen Negative Urine Phencyclidine Screen Negative Urine Amphetamines Screen Negative Urine Benzodiazepines Screen Negative Urine Cocaine Screen Negative Urine Cannabinoids Screen Negative Vitamin B12 Level 591 pg/mL (180-914) Folate 20.2 ng/mL (>=5.9) Whole Blood Glucose 134 mg/DL (75-110) Test 01/27/18 11:33 White Blood Count 5.7 k/uL (4.5-11.0) Red Blood Count 4.90 M/uL (4.00-5.60) Hemoglobin 14.3 g/dL (14.0-18.0) Hematocrit 42.8 % (42.0-52.0) Mean Corpuscular Volume 87.4 fL (80.0-96.0) Mean Corpuscular Hemoglobin 29.1 pg (26.0-33.0) Mean Corpuscular Hemoglobin Concent 33.3 g/dL (32.0-36.0) Red Cell Distribution Width 13.5 % (11.5-14.5) Platelet Count 377 K/uL (150-450) Mean Platelet Volume 8.0 fL (7.2-11.1) Neutrophils (%) (Auto) 77.1 % (39.4-72.5) Lymphocytes (%) (Auto) 12.6 % (17.6-49.6) Monocytes (%) (Auto) 7.5 % (4.1-12.4) Eosinophils (%) (Auto) 1.6 % (0.4-6.7) Basophils (%) (Auto) 1.2 % (0.3-1.4) Nucleated RBC Relative Count (auto) 0.1 /100WBC Neutrophils # (Auto) 4.4 K/uL (2.0-7.4) Lymphocytes # (Auto) 0.7 K/uL (1.3-3.6) Monocytes # (Auto) 0.4 K/uL (0.3-1.0) Eosinophils # (Auto) 0.1 K/uL (0.0-0.5) Basophils # (Auto) 0.1 K/uL (0.0-0.1) Nucleated RBC Absolute Count (auto) 0.00 K/uL Urine Color Kristen Urine Clarity Slightly-cloudy Urine pH 5.0 pH (4.8-9.5) Urine Specific Redfox 1.024 Urine Protein Negative mg/dL (NEGATIVE) Urine Glucose (UA) Negative mg/dL (NEGATIVE) Urine Ketones Negative mg/dL (NEGATIVE) Urine Blood Negative (NEGATIVE) Urine Nitrite Negative (NEGATIVE) Urine Bilirubin Negative (NEGATIVE) Urine Urobilinogen 4.0 mg/dL (0.2-1.9) Urine Leukocyte Esterase Negative (NEGATIVE) Urine RBC None /HPF (0-2/HPF) Urine WBC 1 /HPF (0-5/HPF) Urine Squamous Epithelial Cells Few /LPF (</=FEW) Urine Bacteria Few /HPF (NONE-FEW) Urine Hyaline Casts Few /LPF (NONE-FEW) Urine Mucus Few /HPF (NONE-FEW) Glomerular Filtration Rate Calc > 60.0 Calcium Level 8.8 mg/dl (8.4-10.2) Total Bilirubin 1.1 mg/dl (0.2-1.3) Aspartate Amino Transf (AST/SGOT) 22 U/L (0-35) Alanine Aminotransferase (ALT/SGPT) 26 U/L (0-56) Alkaline Phosphatase 83 U/L (0-126) Total Protein 6.5 g/dl (6.3-8.2) Albumin 3.8 g/dl (3.5-5.0) Toxicology Test 01/22/18 07:10 Urine Opiates Screen Negative Urine Barbiturates Screen Negative Ur Tricyclic Antidepressants Screen Negative Urine Phencyclidine Screen Negative Urine Amphetamines Screen Negative Urine Benzodiazepines Screen Negative Urine Cocaine Screen Negative Urine Cannabinoids Screen Negative Urinalysis Test 01/27/18 11:33 Urine Color Kristen Urine Clarity Slightly-cloudy Urine pH 5.0 pH (4.8-9.5) Urine Specific Redfox 1.024 Urine Protein Negative mg/dL (NEGATIVE) Urine Glucose (UA) Negative mg/dL (NEGATIVE) Urine Ketones Negative mg/dL (NEGATIVE) Urine Blood Negative (NEGATIVE) Urine Nitrite Negative (NEGATIVE) Urine Bilirubin Negative (NEGATIVE) Urine Urobilinogen 4.0 mg/dL (0.2-1.9) Urine Leukocyte Esterase Negative (NEGATIVE) Urine RBC None /HPF (0-2/HPF) Urine WBC 1 /HPF (0-5/HPF) Urine Squamous Epithelial Cells Few /LPF (</=FEW) Urine Bacteria Few /HPF (NONE-FEW) Urine Hyaline Casts Few /LPF (NONE-FEW) Urine Mucus Few /HPF (NONE-FEW) Muscle Strength and Tone: WNL Gait and Station: Steady [facility] Medications Reviewed: Side Effects, Benefits of Medication, Risks Allergies Reviewed: Yes Mental Status Exam General Appearance: Casual, Unkept, Psychomotor Agitation (At times is frust rated and walks in halting manner.); No Psychomotor Retardation, No Bizarre Mannerisms, No Tics Speech: Clear, Spontaneous, Normal Rate, Normal Volume, Rambling (Compelled to tell the same story to the same persons many times without recognition of the person he previously told the story to, or the content of the story.) Mood: Dysthmic/Depressed (Patient verbalizes high frustration, say he feels as though he is in assisted.) Affect: Anxious, Agitated Thought Process: No Loose Associations, No Flight of Ideas; Other (Perseverates) Thought Content: Suicidal Ideation (Denies), Other (paranoia associated with dementia) Cognition: Alert & Oriented-Person; No Alert & Oriented-Place (Believes the hospital is a nursing home, or says he feels as though the hospital is a nursing home.), No Alert & Oriented-Time, No Rjdzy-Qtqdpezl-Sjmutnhfv Memory: Other (Memory is problematic, repeats himself for hours on end.) Intelligence: Average Insight Judgment: Poor (Secondary to advancing dementia, cannot make sound plans for safety. ) [facility] Assessment and Plan [id number] Encounter Date: Feb 06, 2018 [id number] Encounter Time: 08:40 [facility] Plan: Necessary Precautions, Individual/Group Therapy, Admin/Titrate Meds, Educate Patient Tobacco Medications: Not Appropriate Condition Multpiple Antipsychotics Used: No Problems: (1) Major neurocognitive disorder Status: Chronic Assessment & Plan: patient in need of fdc placement, and guardianship Condition 1. Continue treatment. 2. encourage medication compliance at night, with evening meals. 3. await hearing. LINWOOD GIRON MD Feb 06, 2018 09:09
[2018-02-06] MEDS: OLANZapine 5 MG TAB PO SCH (17:00)
[2018-02-06] MEDS: DONEPEZIL HCL 5 MG TAB PO SCH (17:00)
[2018-02-07] MEDS: THIAMINE HCL 100 MG TAB PO SCH (08:51)
[2018-02-07] MEDS: OMEGA-3 500 MG CAP PO SCH (08:51)
[2018-02-07] MEDS: MULTIVITAMINS TAB PO SCH (08:51)
[2018-02-07] MEDS: FOLIC ACID 1 MG TAB PO SCH (08:51)
[2018-02-07] MEDS: CYANOCOBALAMIN 1000 MCG TAB PO SCH (08:52)
[2018-02-07] MEDS: CHOLECALCIFEROL 1000 UNIT TAB PO SCH (08:52)
--- NOTE | 2018-02-07 09:50 | BHS Progress Note ---
BHS - Subjective Progress Notes Subjective "I'm fine. I need to know where my belongings are, I have a home and I never told them I was leaving, I was yanked out of there." Suicidal Ideation: None Homicidal Ideation: None BHS - Objective Physical Exam Vital Signs Current Medications Medications (Trade) Dose Ordered Sig/Cassius Route PRN Reason Start Time Stop Time Status Last Admin Dose Admin Acetaminophen (Tylenol(*)325 Mg Tab (Or Equiv)) 650 mg Q4H PRN PO HEADACHE 01/21/18 23:10 02/20/18 23:09 Multivitamins (Thera-M Enhanced Tab (Or Equiv)) 1 each DAILY@0900 PO 01/22/18 09:00 02/21/18 08:59 02/06/18 08:05 Thiamine HCl (Vitamin B-1(*) 100 Mg Tab (Or Equiv)) 100 mg QDAY PO 01/22/18 11:05 02/21/18 11:04 02/06/18 08:00 Folic Acid (Folic Acid (*) 1 Mg Tab) 1 mg QDAY PO 01/22/18 11:05 02/21/18 11:04 02/06/18 08:00 Cyanocobalamin (Vitamin B-12 1000 Mcg Tab (Or Equiv)) 1,000 mcg QDAY PO 01/23/18 11:00 02/22/18 10:59 02/06/18 08:00 Fwypl-4-Vyuo Ethyl Esters (Fish Oil 500 Mg Capsule) 1,000 mg QDAY PO 01/23/18 10:00 02/22/18 09:59 02/06/18 08:00 Cholecalciferol (Vitamin D3 1000 Unit Tab) 1,000 unit QDAY PO 01/23/18 10:00 02/22/18 09:59 02/06/18 08:00 Donepezil HCl (Aricept 5 Mg Tab (Or Equiv)) 5 mg QHS PO 01/23/18 21:00 02/06/18 09:20 DC Olanzapine (zyPREXA (OR EQUIV)) 2.5 mg QHS PO 01/24/18 21:00 02/06/18 09:20 DC 01/25/18 21:00 Donepezil HCl (Aricept 5 Mg Tab (Or Equiv)) 5 mg DAILY@1700 PO 02/06/18 17:00 02/22/18 20:59 02/06/18 17:00 Olanzapine (zyPREXA (OR EQUIV)) 2.5 mg DAILY@1700 PO 02/06/18 17:00 02/23/18 20:59 02/06/18 17:00 Current Medications Medications (Trade) Dose Ordered Sig/Cassius Route PRN Reason Start Time Stop Time Status Last Admin Dose Admin Acetaminophen (Tylenol(*)325 Mg Tab (Or Equiv)) 650 mg Q4H PRN PO HEADACHE 01/21/18 23:10 02/20/18 23:09 Multivitamins (Thera-M Enhanced Tab (Or Equiv)) 1 each DAILY@0900 PO 01/22/18 09:00 02/21/18 08:59 02/06/18 08:05 Thiamine HCl (Vitamin B-1(*) 100 Mg Tab (Or Equiv)) 100 mg QDAY PO 01/22/18 11:05 02/21/18 11:04 02/06/18 08:00 Folic Acid (Folic Acid (*) 1 Mg Tab) 1 mg QDAY PO 01/22/18 11:05 02/21/18 11:04 02/06/18 08:00 Cyanocobalamin (Vitamin B-12 1000 Mcg Tab (Or Equiv)) 1,000 mcg QDAY PO 01/23/18 11:00 02/22/18 10:59 02/06/18 08:00 Ogwzn-4-Ndfw Ethyl Esters (Fish Oil 500 Mg Capsule) 1,000 mg QDAY PO 01/23/18 10:00 02/22/18 09:59 02/06/18 08:00 Cholecalciferol (Vitamin D3 1000 Unit Tab) 1,000 unit QDAY PO 01/23/18 10:00 02/22/18 09:59 02/06/18 08:00 Donepezil HCl (Aricept 5 Mg Tab (Or Equiv)) 5 mg QHS PO 01/23/18 21:00 02/06/18 09:20 DC Olanzapine (zyPREXA (OR EQUIV)) 2.5 mg QHS PO 01/24/18 21:00 02/06/18 09:20 DC 01/25/18 21:00 Donepezil HCl (Aricept 5 Mg Tab (Or Equiv)) 5 mg DAILY@1700 PO 02/06/18 17:00 02/22/18 20:59 02/06/18 17:00 Olanzapine (zyPREXA (OR EQUIV)) 2.5 mg DAILY@1700 PO 02/06/18 17:00 02/23/18 20:59 02/06/18 17:00 Muscle Strength and Tone: WNL Gait and Station: Steady [facility] Medications Reviewed: Side Effects, Benefits of Medication, Risks Allergies Reviewed: Yes Mental Status Exam General Appearance: Casual, Unkept, Psychomotor Agitation (At times is frustrated and walks in halting manner.); No Psychomotor Retardation, No Bizarre Mannerisms, No Tics Speech: Clear, Spontaneous, Normal Rate, Normal Volume, Rambling (Compelled to tell the same story to the same persons many times without recognition of the person he previously told the story to, or the content of the story.) Mood: Dysthmic/Depressed (Patient verbalizes high frustration, say he feels as though he is in intermediate.) Affect: Anxious, Agitated Thought Process: No Loose Associations, No Flight of Ideas; Other (Perseverates) Thought Content: Suicidal Ideation (Denies), Other (paranoia associated with dementia) Cognition: Alert & Oriented-Person; No Alert & Oriented-Place (Believes the hospital is a [facility], or says he feels as though the hospital is a [facility].), No Alert & Oriented-Time, No Chrmz-Wdxwgrhz-Iryvuajyl Memory: Other (Memory is problematic, repeats himself for hours on end.) Intelligence: Average Insight Judgment: Poor (Secondary to advancing dementia, cannot make sound plans for safety. ) [facility] Assessment and Plan [id number] Encounter Date: Feb 07, 2018 [id number] Encounter Time: 09:00 [facility] Plan: Necessary Precautions, Individual/Group Therapy, Admin/Titrate Meds, Educate Patient Tobacco Medications: Not Appropriate Condition Multpiple Antipsychotics Used: No Problems: (1) Major neurocognitive disorder Status: Chronic WILLIS HAIRSTON NP Feb 07, 2018 09:50
[2018-02-07] MEDS: OLANZapine 5 MG TAB PO SCH (17:00)
[2018-02-07] MEDS: DONEPEZIL HCL 5 MG TAB PO SCH (17:00)
[2018-02-08 06:44] VITALS: BP 134/70
[2018-02-08] MEDS: CHOLECALCIFEROL 1000 UNIT TAB PO SCH (09:00)
[2018-02-08] MEDS: MULTIVITAMINS TAB PO SCH (09:00)
[2018-02-08] MEDS: THIAMINE HCL 100 MG TAB PO SCH (09:00)
[2018-02-08] MEDS: FOLIC ACID 1 MG TAB PO SCH (09:00)
[2018-02-08] MEDS: OMEGA-3 500 MG CAP PO SCH (09:00)
[2018-02-08] MEDS: CYANOCOBALAMIN 1000 MCG TAB PO SCH (09:00)
--- NOTE | 2018-02-08 12:54 | BHS Progress Note ---
S - Subjective Progress Notes Subjective "I just need to know where my belongings are." Suicidal Ideation: None Homicidal Ideation: None S - Objective Physical Exam Vital Signs Vital Signs 02/08/18 06:44 Pulse 62 B/P (MAP) 134/70 (91) Pulse Ox 93 O2 Delivery Room Air Muscle Strength and Tone: WNL Gait and Station: Steady S Medications Reviewed: Side Effects, Benefits of Medication, Risks Allergies Reviewed: Yes Mental Status Exam General Appearance: Casual, Unkept, Psychomotor Agitation (At times is frustrated and walks in halting manner.); No Psychomotor Retardation, No Bizarre Mannerisms, No Tics Speech: Clear, Spontaneous, Normal Rate, Normal Volume, Rambling (Compelled to tell the same story to the same persons many times without recognition of the person he previously told the story to, or the content of the story.) Mood: Dysthmic/Depressed (Patient verbalizes high frustration, say he feels as though he is in fdc.) Affect: Anxious, Agitated Thought Process: No Loose Associations, No Flight of Ideas; Other (Perseverates) Thought Content: Suicidal Ideation (Denies), Other (paranoia associated with dementia) Cognition: Alert & Oriented-Person; No Alert & Oriented-Place (Believes the hospital is a shelter, or says he feels as though the hospital is a shelter.), No Alert & Oriented-Time, No Ymmsm-Uokdizlt-Kircejsxa Memory: Other (Memory is problematic, repeats himself for hours on end.) Intelligence: Average Insight Judgment: Poor (Secondary to advancing dementia, cannot make sound plans for safety. ) [facility] Assessment and Plan [id number] Encounter Date: Feb 08, 2018 [id number] Encounter Time: 08:30 [facility] Plan: Necessary Precautions, Individual/Group Therapy, Admin/Titrate Meds, Educate Patient Tobacco Medications: Not Appropriate Condition Multpiple Antipsychotics Used: No Problems: (1) Major neurocognitive disorder Status: Chronic WILLIS HAIRSTON NP Feb 08, 2018 12:54
[2018-02-08] MEDS: DONEPEZIL HCL 5 MG TAB PO SCH (17:00)
[2018-02-08] MEDS: OLANZapine 5 MG TAB PO SCH (17:00)
[2018-02-08 20:55] VITALS: BP 143/80
--- NOTE | 2018-02-09 08:27 | BHS Progress Note ---
BHS - Subjective Progress Notes Subjective "Have you heard my story?" Patient giving no indication of memory of multiple encounters with this provider. Patient noted to be making vague suicidal statements over the weekend, likely based in the ongoing frustration patient experiences with a near total lack of immediate memory. Patient repeating himself, and is overall cooperative on the unit, at times trying to barricade his door to his room, but minimal direct physical posturing towards staff. Patient continues to refuse aricept and low dose zyprexa in the evening. Patient will have hearing this AM, for commitment to [facility], as process of gaining guardianship, and search for proper custodial care placement in dementia unit continues. Patient is able to shower, dress, and feed self with prompting. No other concerns today. Suicidal Ideation: None (vague references at times, likely brought on by frustration) Homicidal Ideation: None BHS - Objective Physical Exam Vital Signs Hematology Test 01/22/18 00:00 01/22/18 07:10 01/22/18 14:48 01/27/18 11:32 Vitamin D 25-Hydroxy 34 ng/ml (30-100) Free Thyroxine 1.25 ng/dl (0.78-2.19) Free Triiodothyronine 2.5 pg/mL (2.4-4.2) Urine Opiates Screen Negative Urine Barbiturates Screen Negative Ur Tricyclic Antidepressants Screen Negative Urine Phencyclidine Screen Negative Urine Amphetamines Screen Negative Urine Benzodiazepines Screen Negative Urine Cocaine Screen Negative Urine Cannabinoids Screen Negative Vitamin B12 Level 591 pg/mL (180-914) Folate 20.2 ng/mL (>=5.9) Whole Blood Glucose 134 mg/DL (75-110) Test 01/27/18 11:33 Red Blood Count 4.90 M/uL (4.00-5.60) Mean Corpuscular Volume 87.4 fL (80.0-96.0) Mean Corpuscular Hemoglobin 29.1 pg (26.0-33.0) Mean Corpuscular Hemoglobin Concent 33.3 g/dL (32.0-36.0) Red Cell Distribution Width 13.5 % (11.5-14.5) Mean Platelet Volume 8.0 fL (7.2-11.1) Neutrophils (%) (Auto) 77.1 % (39.4-72.5) Lymphocytes (%) (Auto) 12.6 % (17.6-49.6) Monocytes (%) (Auto) 7.5 % (4.1-12.4) Eosinophils (%) (Auto) 1.6 % (0.4-6.7) Basophils (%) (Auto) 1.2 % (0.3-1.4) Nucleated RBC Relative Count (auto) 0.1 /100WBC Neutrophils # (Auto) 4.4 K/uL (2.0-7.4) Lymphocytes # (Auto) 0.7 K/uL (1.3-3.6) Monocytes # (Auto) 0.4 K/uL (0.3-1.0) Eosinophils # (Auto) 0.1 K/uL (0.0-0.5) Basophils # (Auto) 0.1 K/uL (0.0-0.1) Nucleated RBC Absolute Count (auto) 0.00 K/uL Urine Color Kristen Urine Clarity Slightly-cloudy Urine pH 5.0 pH (4.8-9.5) Urine Specific [place] 1.024 Urine Protein Negative mg/dL (NEGATIVE) Urine Glucose (UA) Negative mg/dL (NEGATIVE) Urine Ketones Negative mg/dL (NEGATIVE) Urine Blood Negative (NEGATIVE) Urine Nitrite Negative (NEGATIVE) Urine Bilirubin Negative (NEGATIVE) Urine Urobilinogen 4.0 mg/dL (0.2-1.9) Urine Leukocyte Esterase Negative (NEGATIVE) Urine RBC None /HPF (0-2/HPF) Urine WBC 1 /HPF (0-5/HPF) Urine Squamous Epithelial Cells Few /LPF (</=FEW) Urine Bacteria Few /HPF (NONE-FEW) Urine Hyaline Casts Few /LPF (NONE-FEW) Urine Mucus Few /HPF (NONE-FEW) Sodium Level 141 mmol/L (137-145) Potassium Level 3.8 mmol/L (3.5-5.0) Chloride Level 101 mmol/L (98-107) Carbon Dioxide Level 27 mmol/L (22-30) Blood Urea Nitrogen 17 mg/dl (9-21) Creatinine 0.80 mg/dl (0.66-1.25) Glomerular Filtration Rate Calc > 60.0 Random Glucose 166 mg/dl (75-110) Calcium Level 8.8 mg/dl (8.4-10.2) Total Bilirubin 1.1 mg/dl (0.2-1.3) Aspartate Amino Transf (AST/SGOT) 22 U/L (0-35) Alanine Aminotransferase (ALT/SGPT) 26 U/L (0-56) Alkaline Phosphatase 83 U/L (0-126) Total Protein 6.5 g/dl (6.3-8.2) Albumin 3.8 g/dl (3.5-5.0) Chemistry Test 01/22/18 00:00 01/22/18 07:10 01/22/18 14:48 01/27/18 11:32 Vitamin D 25-Hydroxy 34 ng/ml (30-100) Free Thyroxine 1.25 ng/dl (0.78-2.19) Free Triiodothyronine 2.5 pg/mL (2.4-4.2) Urine Opiates Screen Negative Urine Barbiturates Screen Negative Ur Tricyclic Antidepressants Screen Negative Urine Phencyclidine Screen Negative Urine Amphetamines Screen Negative Urine Benzodiazepines Screen Negative Urine Cocaine Screen Negative Urine Cannabinoids Screen Negative Vitamin B12 Level 591 pg/mL (180-914) Folate 20.2 ng/mL (>=5.9) Whole Blood Glucose 134 mg/DL (75-110) Test 01/27/18 11:33 White Blood Count 5.7 k/uL (4.5-11.0) Red Blood Count 4.90 M/uL (4.00-5.60) Hemoglobin 14.3 g/dL (14.0-18.0) Hematocrit 42.8 % (42.0-52.0) Mean Corpuscular Volume 87.4 fL (80.0-96.0) Mean Corpuscular Hemoglobin 29.1 pg (26.0-33.0) Mean Corpuscular Hemoglobin Concent 33.3 g/dL (32.0-36.0) Red Cell Distribution Width 13.5 % (11.5-14.5) Platelet Count 377 K/uL (150-450) Mean Platelet Volume 8.0 fL (7.2-11.1) Neutrophils (%) (Auto) 77.1 % (39.4-72.5) Lymphocytes (%) (Auto) 12.6 % (17.6-49.6) Monocytes (%) (Auto) 7.5 % (4.1-12.4) Eosinophils (%) (Auto) 1.6 % (0.4-6.7) Basophils (%) (Auto) 1.2 % (0.3-1.4) Nucleated RBC Relative Count (auto) 0.1 /100WBC Neutrophils # (Auto) 4.4 K/uL (2.0-7.4) Lymphocytes # (Auto) 0.7 K/uL (1.3-3.6) Monocytes # (Auto) 0.4 K/uL (0.3-1.0) Eosinophils # (Auto) 0.1 K/uL (0.0-0.5) Basophils # (Auto) 0.1 K/uL (0.0-0.1) Nucleated RBC Absolute Count (auto) 0.00 K/uL Urine Color Kristen Urine Clarity Slightly-cloudy Urine pH 5.0 pH (4.8-9.5) Urine Specific [place] 1.024 Urine Protein Negative mg/dL (NEGATIVE) Urine Glucose (UA) Negative mg/dL (NEGATIVE) Urine Ketones Negative mg/dL (NEGATIVE) Urine Blood Negative (NEGATIVE) Urine Nitrite Negative (NEGATIVE) Urine Bilirubin Negative (NEGATIVE) Urine Urobilinogen 4.0 mg/dL (0.2-1.9) Urine Leukocyte Esterase Negative (NEGATIVE) Urine RBC None /HPF (0-2/HPF) Urine WBC 1 /HPF (0-5/HPF) Urine Squamous Epithelial Cells Few /LPF (</=FEW) Urine Bacteria Few /HPF (NONE-FEW) Urine Hyaline Casts Few /LPF (NONE-FEW) Urine Mucus Few /HPF (NONE-FEW) Glomerular Filtration Rate Calc > 60.0 Calcium Level 8.8 mg/dl (8.4-10.2) Total Bilirubin 1.1 mg/dl (0.2-1.3) Aspartate Amino Transf (AST/SGOT) 22 U/L (0-35) Alanine Aminotransferase (ALT/SGPT) 26 U/L (0-56) Alkaline Phosphatase 83 U/L (0-126) Total Protein 6.5 g/dl (6.3-8.2) Albumin 3.8 g/dl (3.5-5.0) Toxicology Test 01/22/18 07:10 Urine Opiates Screen Negative Urine Barbiturates Screen Negative Ur Tricyclic Antidepressants Screen Negative Urine Phencyclidine Screen Negative Urine Amphetamines Screen Negative Urine Benzodiazepines Screen Negative Urine Cocaine Screen Negative Urine Cannabinoids Screen Negative Urinalysis Test 01/27/18 11:33 Urine Color Kristen Urine Clarity Slightly-cloudy Urine pH 5.0 pH (4.8-9.5) Urine Specific [place] 1.024 Urine Protein Negative mg/dL (NEGATIVE) Urine Glucose (UA) Negative mg/dL (NEGATIVE) Urine Ketones Negative mg/dL (NEGATIVE) Urine Blood Negative (NEGATIVE) Urine Nitrite Negative (NEGATIVE) Urine Bilirubin Negative (NEGATIVE) Urine Urobilinogen 4.0 mg/dL (0.2-1.9) Urine Leukocyte Esterase Negative (NEGATIVE) Urine RBC None /HPF (0-2/HPF) Urine WBC 1 /HPF (0-5/HPF) Urine Squamous Epithelial Cells Few /LPF (</=FEW) Urine Bacteria Few /HPF (NONE-FEW) Urine Hyaline Casts Few /LPF (NONE-FEW) Urine Mucus Few /HPF (NONE-FEW) Vital Signs Date Time Temp Pulse Resp B/P (MAP) Pulse Ox O2 Delivery O2 Flow Rate FiO2 02/08/18 20:55 99.0 58 143/80 (101) 94 Room Air Muscle Strength and Tone: WNL Gait and Station: Steady BHS Medications Reviewed: Side Effects, Benefits of Medication, Risks Allergies Reviewed: Yes Mental Status Exam General Appearance: Casual, Good Eye Contact, Unkept, Psychomotor Agitation (At times is frustrated and walks in halting manner.); No Psychomotor Retardation, No Bizarre Mannerisms, No Tics Speech: Clear, Spontaneous, Normal Rate, Normal Rhythm, Normal Volume, Normal Tone, Rambling (Compelled to tell the same story to the same persons many times without recognition of the person he previously told the story to, or the content of the story.) Mood: Dysthmic/Depressed (Patient verbalizes high frustration, say he feels as though he is in residential.) Affect: Neutral; No Withdrawn; Anxious (at times), Agitated (at times) Thought Process: No Loose Associations, No Flight of Ideas; Other (Pe rseverates) Thought Content: Suicidal Ideation (references stemming from frustration of current condition at times.), Other (paranoia associated with dementia) Cognition: Alert & Oriented-Person; No Alert & Oriented-Place (Believes the hospital is a shelter, or says he feels as though the hospital is a shelter.), No Alert & Oriented-Time, No Cujxo-Kezgcbuy-Pybubgjvr Memory: No Immediate, No Recent; Remote, Other (Memory is problematic, repeats himself for hours on end.) Intelligence: Average (historically seems to have been average) Insight Judgment: Poor (Secondary to advancing dementia, cannot make sound decisions, with extremely limited immediate memory) [facility] Assessment and Plan [id number] Encounter Date: Feb 09, 2018 [id number] Encounter Time: 08:00 [facility] Plan: Necessary Precautions, Individual/Group Therapy, Admin/Titrate Meds, Educate Patient Tobacco Medications: Not Appropriate Condition Multpiple Antipsychotics Used: No Problems: (1) Major neurocognitive disorder Status: Chronic Assessment & Plan: patient in need of custodial placement, and guardianship Condition 1. hearing today. 2. in need of guardianship and placement in prison care facility. 3. Encourage medication compliance. LINWOOD GIRON MD Feb 09, 2018 08:27
[2018-02-09] MEDS: FOLIC ACID 1 MG TAB PO SCH (09:00)
[2018-02-09] MEDS: THIAMINE HCL 100 MG TAB PO SCH (09:00)
[2018-02-09] MEDS: MULTIVITAMINS TAB PO SCH (09:00)
[2018-02-09] MEDS: CHOLECALCIFEROL 1000 UNIT TAB PO SCH (09:00)
[2018-02-09] MEDS: CYANOCOBALAMIN 1000 MCG TAB PO SCH (09:00)
[2018-02-09] MEDS: OMEGA-3 500 MG CAP PO SCH (09:00)
[2018-02-09] MEDS: OLANZapine 5 MG TAB PO SCH (17:00)
[2018-02-09] MEDS: DONEPEZIL HCL 5 MG TAB PO SCH (17:00)
[2018-02-10] MEDS: FOLIC ACID 1 MG TAB PO SCH (08:06)
[2018-02-10] MEDS: OMEGA-3 500 MG CAP PO SCH (08:06)
[2018-02-10] MEDS: THIAMINE HCL 100 MG TAB PO SCH (08:06)
[2018-02-10] MEDS: CYANOCOBALAMIN 1000 MCG TAB PO SCH (08:06)
[2018-02-10] MEDS: MULTIVITAMINS TAB PO SCH (08:06)
[2018-02-10] MEDS: CHOLECALCIFEROL 1000 UNIT TAB PO SCH (08:20)
--- NOTE | 2018-02-10 09:36 | BHS Progress Note ---
[facility] - Subjective Progress Notes Subjective "I think we have met before, but I don't remember the last time." Patient making good eye contact greeting this provider today. Patient now on a commitment to the [facility], in need of gaurdianship. and placement in longterm care, dementia sneed. Patient eating and sleeping fairly well, refuses aricept and zyprexa. No other concerns. Suicidal Ideation: None Homicidal Ideation: None [facility] - Objective Physical Exam Vital Signs Vital Signs Date Time Temp Pulse Resp B/P (MAP) Pulse Ox O2 Delivery O2 Flow Rate FiO2 02/08/18 20:55 99.0 58 143/80 (101) 94 Room Air Muscle Strength and Tone: WNL Gait and Station: Steady [facility] Medications Reviewed: Side Effects, Benefits of Medication, Risks Allergies Reviewed: Yes Mental Status Exam General Appearance: Casual, Good Eye Contact, Unkept, Psychomotor Agitation (At times is frustrated and walks in halting manner.); No Psychomotor Retardation, No Bizarre Mannerisms, No Tics Speech: Clear, Spontaneous, Normal Rate, Normal Rhythm, Normal Volume, Normal Tone, Rambling (Compelled to tell the same story to the same persons many times without recognition of the person he previously told the story to, or the content of the story.) Mood: Dysthmic/Depressed (Patient verbalizes high frustration, say he feels as though he is in alf.) Affect: Neutral; No Withdrawn; Anxious (at times), Agitated (at times) Thought Process: No Loose Associations, No Flight of Ideas; Other (Perseverates) Thought Content: Suicidal Ideation (references stemming from frustration of current condition at times.), Other (paranoia associated with dementia) Cognition: Alert & Oriented-Person; No Alert & Oriented-Place (Believes the hospital is a residential, or says he feels as though the hospital is a residential.), No Alert & Oriented-Time, No Nyvvv-Ztdefqis-Ajywbvdbm Memory: No Immediate, No Recent; Remote, Other (Memory is problematic, repeats himself for hours on end.) Intelligence: Average (historically seems to have been average) Insight Judgment: Poor (Secondary to advancing dementia, cannot make sound decisions, with extremely limited immediate memory) [facility] Assessment and Plan [id number] Encounter Date: Feb 10, 2018 [id number] Encounter Time: 08:00 [facility] Plan: Necessary Precautions, Individual/Group Therapy, Admin/Titrate Meds, Educate Patient Tobacco Medications: Not Appropriate Condition Multpiple Antipsychotics Used: No Problems: (1) Major neurocognitive disorder Status: Chronic Assessment & Plan: patient in need of exterminator helper placement, and guardianship Condition 1. continue treatment. 2. encourage medication compliance. 3. look into placement options, [facility]. LINWOOD GIRON MD Feb 10, 2018 09:36
[2018-02-10] MEDS: OLANZapine 5 MG TAB PO SCH (17:00)
[2018-02-10] MEDS: DONEPEZIL HCL 5 MG TAB PO SCH (17:00)
[2018-02-11] MEDS: OMEGA-3 500 MG CAP PO SCH (08:09)
[2018-02-11] MEDS: FOLIC ACID 1 MG TAB PO SCH (08:09)
[2018-02-11] MEDS: MULTIVITAMINS TAB PO SCH (08:09)
[2018-02-11] MEDS: THIAMINE HCL 100 MG TAB PO SCH (08:10)
[2018-02-11] MEDS: CHOLECALCIFEROL 1000 UNIT TAB PO SCH (08:10)
[2018-02-11] MEDS: CYANOCOBALAMIN 1000 MCG TAB PO SCH (08:10)
--- NOTE | 2018-02-11 08:29 | BHS Progress Note ---
S - Subjective Progress Notes Subjective Patient again demonstrating no memory of this provider from the day before, and asking "Why am I here". Patient's appetite remains intact, able to feed and dress self, showers with prompting. Some mild agitation noted as patient exhibited poor sleep last PM, and was engaging in door checking behaviors and wandering in and out of patient's room. Patient continues to refuse taking low dose Zyprexa and Aricept in the PM. Suicidal Ideation: None Homicidal Ideation: None S - Objective Physical Exam Vital Signs Hematology Test 01/22/18 00:00 01/22/18 07:10 01/22/18 14:48 01/27/18 11:32 Vitamin D 25-Hydroxy 34 ng/ml (30-100) Free Thyroxine 1.25 ng/dl (0.78-2.19) Free Triiodothyronine 2.5 pg/mL (2.4-4.2) Urine Opiates Screen Negative Urine Barbiturates Screen Negative Ur Tricyclic Antidepressants Screen Negative Urine Phencyclidine Screen Negative Urine Amphetamines Screen Negative Urine Benzodiazepines Screen Negative Urine Cocaine Screen Negative Urine Cannabinoids Screen Negative Vitamin B12 Level 591 pg/mL (180-914) Folate 20.2 ng/mL (>=5.9) Whole Blood Glucose 134 mg/DL (75-110) Test 01/27/18 11:33 Red Blood Count 4.90 M/uL (4.00-5.60) Mean Corpuscular Volume 87.4 fL (80.0-96.0) Mean Corpuscular Hemoglobin 29.1 pg (26.0-33.0) Mean Corpuscular Hemoglobin Concent 33.3 g/dL (32.0-36.0) Red Cell Distribution Width 13.5 % (11.5-14.5) Mean Platelet Volume 8.0 fL (7.2-11.1) Neutrophils (%) (Auto) 77.1 % (39.4-72.5) Lymphocytes (%) (Auto) 12.6 % (17.6-49.6) Monocytes (%) (Auto) 7.5 % (4.1-12.4) Eosinophils (%) (Auto) 1.6 % (0.4-6.7) Basophils (%) (Auto) 1.2 % (0.3-1.4) Nucleated RBC Relative Count (auto) 0.1 /100WBC Neutrophils # (Auto) 4.4 K/uL (2.0-7.4) Lymphocytes # (Auto) 0.7 K/uL (1.3-3.6) Monocytes # (Auto) 0.4 K/uL (0.3-1.0) Eosinophils # (Auto) 0.1 K/uL (0.0-0.5) Basophils # (Auto) 0.1 K/uL (0.0-0.1) Nucleated RBC Absolute Count (auto) 0.00 K/uL Urine Color Kristen Urine Clarity Slightly-cloudy Urine pH 5.0 pH (4.8-9.5) Urine Specific [place] 1.024 Urine Protein Negative mg/dL (NEGATIVE) Urine Glucose (UA) Negative mg/dL (NEGATIVE) Urine Ketones Negative mg/dL (NEGATIVE) Urine Blood Negative (NEGATIVE) Urine Nitrite Negative (NEGATIVE) Urine Bilirubin Negative (NEGATIVE) Urine Urobilinogen 4.0 mg/dL (0.2-1.9) Urine Leukocyte Esterase Negative (NEGATIVE) Urine RBC None /HPF (0-2/HPF) Urine WBC 1 /HPF (0-5/HPF) Urine Squamous Epithelial Cells Few /LPF (</=FEW) Urine Bacteria Few /HPF (NONE-FEW) Urine Hyaline Casts Few /LPF (NONE-FEW) Urine Mucus Few /HPF (NONE-FEW) Sodium Level 141 mmol/L (137-145) Potassium Level 3.8 mmol/L (3.5-5.0) Chloride Level 101 mmol/L (98-107) Carbon Dioxide Level 27 mmol/L (22-30) Blood Urea Nitrogen 17 mg/dl (9-21) Creatinine 0.80 mg/dl (0.66-1.25) Glomerular Filtration Rate Calc > 60.0 Random Glucose 166 mg/dl (75-110) Calcium Level 8.8 mg/dl (8.4-10.2) Total Bilirubin 1.1 mg/dl (0.2-1.3) Aspartate Amino Transf (AST/SGOT) 22 U/L (0-35) Alanine Aminotransferase (ALT/SGPT) 26 U/L (0-56) Alkaline Phosphatase 83 U/L (0-126) Total Protein 6.5 g/dl (6.3-8.2) Albumin 3.8 g/dl (3.5-5.0) Chemistry Test 01/22/18 00:00 01/22/18 07:10 01/22/18 14:48 01/27/18 11:32 Vitamin D 25-Hydroxy 34 ng/ml (30-100) Free Thyroxine 1.25 ng/dl (0.78-2.19) Free Triiodothyronine 2.5 pg/mL (2.4-4.2) Urine Opiates Screen Negative Urine Barbiturates Screen Negative Ur Tricyclic Antidepressants Screen Negative Urine Phencyclidine Screen Negative Urine Amphetamines Screen Negative Urine Benzodiazepines Screen Negative Urine Cocaine Screen Negative Urine Cannabinoids Screen Negative Vitamin B12 Level 591 pg/mL (180-914) Folate 20.2 ng/mL (>=5.9) Whole Blood Glucose 134 mg/DL (75-110) Test 01/27/18 11:33 White Blood Count 5.7 k/uL (4.5-11.0) Red Blood Count 4.90 M/uL (4.00-5.60) Hemoglobin 14.3 g/dL (14.0-18.0) Hematocrit 42.8 % (42.0-52.0) Mean Corpuscular Volume 87.4 fL (80.0-96.0) Mean Corpuscular Hemoglobin 29.1 pg (26.0-33.0) Mean Corpuscular Hemoglobin Concent 33.3 g/dL (32.0-36.0) Red Cell Distribution Width 13.5 % (11.5-14.5) Platelet Count 377 K/uL (150-450) Mean Platelet Volume 8.0 fL (7.2-11.1) Neutrophils (%) (Auto) 77.1 % (39.4-72.5) Lymphocytes (%) (Auto) 12.6 % (17.6-49.6) Monocytes (%) (Auto) 7.5 % (4.1-12.4) Eosinophils (%) (Auto) 1.6 % (0.4-6.7) Basophils (%) (Auto) 1.2 % (0.3-1.4) Nucleated RBC Relative Count (auto) 0.1 /100WBC Neutrophils # (Auto) 4.4 K/uL (2.0-7.4) Lymphocytes # (Auto) 0.7 K/uL (1.3-3.6) Monocytes # (Auto) 0.4 K/uL (0.3-1.0) Eosinophils # (Auto) 0.1 K/uL (0.0-0.5) Basophils # (Auto) 0.1 K/uL (0.0-0.1) Nucleated RBC Absolute Count (auto) 0.00 K/uL Urine Color Kristen Urine Clarity Slightly-cloudy Urine pH 5.0 pH (4.8-9.5) Urine Specific [place] 1.024 Urine Protein Negative mg/dL (NEGATIVE) Urine Glucose (UA) Negative mg/dL (NEGATIVE) Urine Ketones Negative mg/dL (NEGATIVE) Urine Blood Negative (NEGATIVE) Urine Nitrite Negative (NEGATIVE) Urine Bilirubin Negative (NEGATIVE) Urine Urobilinogen 4.0 mg/dL (0.2-1.9) Urine Leukocyte Esterase Negative (NEGATIVE) Urine RBC None /HPF (0-2/HPF) Urine WBC 1 /HPF (0-5/HPF) Urine Squamous Epithelial Cells Few /LPF (</=FEW) Urine Bacteria Few /HPF (NONE-FEW) Urine Hyaline Casts Few /LPF (NONE-FEW) Urine Mucus Few /HPF (NONE-FEW) Glomerular Filtration Rate Calc > 60.0 Calcium Level 8.8 mg/dl (8.4-10.2) Total Bilirubin 1.1 mg/dl (0.2-1.3) Aspartate Amino Transf (AST/SGOT) 22 U/L (0-35) Alanine Aminotransferase (ALT/SGPT) 26 U/L (0-56) Alkaline Phosphatase 83 U/L (0-126) Total Protein 6.5 g/dl (6.3-8.2) Albumin 3.8 g/dl (3.5-5.0) Toxicology Test 01/22/18 07:10 Urine Opiates Screen Negative Urine Barbiturates Screen Negative Ur Tricyclic Antidepressants Screen Negative Urine Phencyclidine Screen Negative Urine Amphetamines Screen Negative Urine Benzodiazepines Screen Negative Urine Cocaine Screen Negative Urine Cannabinoids Screen Negative Urinalysis Test 01/27/18 11:33 Urine Color Kristen Urine Clarity Slightly-cloudy Urine pH 5.0 pH (4.8-9.5) Urine Specific [place] 1.024 Urine Protein Negative mg/dL (NEGATIVE) Urine Glucose (UA) Negative mg/dL (NEGATIVE) Urine Ketones Negative mg/dL (NEGATIVE) Urine Blood Negative (NEGATIVE) Urine Nitrite Negative (NEGATIVE) Urine Bilirubin Negative (NEGATIVE) Urine Urobilinogen 4.0 mg/dL (0.2-1.9) Urine Leukocyte Esterase Negative (NEGATIVE) Urine RBC None /HPF (0-2/HPF) Urine WBC 1 /HPF (0-5/HPF) Urine Squamous Epithelial Cells Few /LPF (</=FEW) Urine Bacteria Few /HPF (NONE-FEW) Urine Hyaline Casts Few /LPF (NONE-FEW) Urine Mucus Few /HPF (NONE-FEW) Vital Signs Date Time Temp Pulse Resp B/P (MAP) Pulse Ox O2 Delivery O2 Flow Rate FiO2 02/08/18 20:55 99.0 58 143/80 (101) 94 Room Air Muscle Strength and Tone: WNL Gait and Station: Steady [facility] Medications Reviewed: Side Effects, Benefits of Medication, Risks Allergies Reviewed: Yes Mental Status Exam General Appearance: Casual, Good Eye Contact, Unkept (minimally), Psychomotor Agitation (At times is frustrated and walks in halting manner.); No Psychomotor Retardation, No Bizarre Mannerisms, No Tics Speech: Clear, Spontaneous, Normal Rate, Normal Rhythm, Normal Volume, Normal Tone, Rambling (Compelled to tell the same story to the same persons many times without recognition of the person he previously told the story to, or the c ontent of the story.) Mood: Dysthmic/Depressed (Patient verbalizes high frustration, say he feels as though he is in fpc.) Affect: Neutral; No Withdrawn; Anxious (at times), Agitated (at times) Thought Process: No Loose Associations, No Flight of Ideas; Other (Perseverates) Thought Content: Suicidal Ideation (references stemming from frustration of current condition at times.), Other (paranoia associated with dementia) Cognition: Alert & Oriented-Person; No Alert & Oriented-Place (Believes the hospital is a assisted, or says he feels as though the hospital is a assisted.), No Alert & Oriented-Time, No Wanzg-Vhcopcld-Hwmhwfhfm Memory: No Immediate, No Recent; Remote, Other (Memory is problematic, repeats himself for hours on end.) Intelligence: Average (historically seems to have been average) Insight Judgment: Poor (Secondary to advancing dementia, cannot make sound decisions, with extremely limited immediate memory) [facility] Assessment and Plan [id number] Encounter Date: Feb 11, 2018 [id number] Encounter Time: 08:00 [facility] Plan: Necessary Precautions, Individual/Group Therapy, Admin/Titrate Meds, Educate Patient Tobacco Medications: Not Appropriate Condition Multpiple Antipsychotics Used: No Problems: (1) Major neurocognitive disorder Status: Chronic Assessment & Plan: patient in need of fpc placement, and guardianship Condition 1. continue treatment 2. encourage medication compliance. Vital Signs Date Time Temp Pulse Resp B/P (MAP) Pulse Ox O2 Delivery O2 Flow Rate FiO2 02/08/18 20:55 99.0 58 143/80 (101) 94 Room Air LINWOOD GIRON MD Feb 11, 2018 08:29
[2018-02-11] MEDS: OLANZapine 5 MG TAB PO SCH (17:00)
[2018-02-11] MEDS: DONEPEZIL HCL 5 MG TAB PO SCH (17:00)
[2018-02-12] MEDS: OMEGA-3 500 MG CAP PO SCH (08:05)
[2018-02-12] MEDS: FOLIC ACID 1 MG TAB PO SCH (08:05)
[2018-02-12] MEDS: THIAMINE HCL 100 MG TAB PO SCH (08:06)
[2018-02-12] MEDS: CHOLECALCIFEROL 1000 UNIT TAB PO SCH (08:06)
[2018-02-12] MEDS: CYANOCOBALAMIN 1000 MCG TAB PO SCH (08:06)
[2018-02-12] MEDS: MULTIVITAMINS TAB PO SCH (08:06)
--- NOTE | 2018-02-12 10:07 | BHS Progress Note ---
[facility] - Subjective Progress Notes Subjective Patient having a much more restful night last PM, with no concerns. Will continue to encourage compliance with medications. Patient remains easily re- directable. Continue to work on guardianship and placement. Suicidal Ideation: None Homicidal Ideation: None [facility] - Objective Physical Exam Muscle Strength and Tone: WNL Gait and Station: Steady [facility] Medications Reviewed: Side Effects, Benefits of Medication, Risks Allergies Reviewed: Yes Mental Status Exam General Appearance: Casual, Good Eye Contact, Unkept (minimally), Psychomotor Agitation (At times is frustrated and walks in halting manner.); No Psychomotor Retardation, No Bizarre Mannerisms, No Tics Speech: Clear, Spontaneous, Normal Rate, Normal Rhythm, Normal Volume, Normal Tone, Rambling (Compelled to tell the same story to the same persons many times without recognition of the person he previously told the story to, or the content of the story.) Mood: Dysthmic/Depressed (Patient verbalizes high frustration, say he feels as though he is in custodial.) Affect: Neutral; No Withdrawn; Anxious (at times), Agitated (at times) Thought Process: No Loose Associations, No Flight of Ideas; Other (Perseverates) Thought Content: Suicidal Ideation (references stemming from frustration of current condition at times.), Other (paranoia associated with dementia) Cognition: Alert & Oriented-Person; No Alert & Oriented-Place (Believes the hospital is a jail, or says he feels as though the hospital is a jail.), No Alert & Oriented-Time, No Dhgwf-Wjkufceg-Sarjoxgzu Memory: No Immediate, No Recent; Remote, Other (Memory is problematic, repeats himself for hours on end.) Intelligence: Average (historically seems to have been average) Insight Judgment: Poor (Secondary to advancing dementia, cannot make sound decisions, with extremely limited immediate memory) [facility] Assessment and Plan [id number] Encounter Date: Feb 12, 2018 [id number] Encounter Time: 09:00 [facility] Plan: Necessary Precautions, Individual/Group Therapy, Admin/Titrate Meds, Educate Patient Tobacco Medications: Not Appropriate Condition Multpiple Antipsychotics Used: No Problems: (1) Major neurocognitive disorder Status: Chronic Assessment & Plan: patient in need of custodial placement, and guardianship Condition 1. continue treatment 2. encourage medication compliance. 3. look for placement options. Vital Signs Date Time Temp Pulse Resp B/P (MAP) Pulse Ox O2 Delivery O2 Flow Rate FiO2 02/08/18 20:55 99.0 58 143/80 (101) 94 Room Air LINWOOD GIRON MD Feb 12, 2018 10:07
[2018-02-12] MEDS: DONEPEZIL HCL 5 MG TAB PO SCH (17:00)
[2018-02-12] MEDS: OLANZapine 5 MG TAB PO SCH (17:00)
[2018-02-13] MEDS: THIAMINE HCL 100 MG TAB PO SCH (08:18)
[2018-02-13] MEDS: CHOLECALCIFEROL 1000 UNIT TAB PO SCH (08:18)
[2018-02-13] MEDS: OMEGA-3 500 MG CAP PO SCH (08:18)
[2018-02-13] MEDS: MULTIVITAMINS TAB PO SCH (08:18)
[2018-02-13] MEDS: FOLIC ACID 1 MG TAB PO SCH (08:18)
[2018-02-13] MEDS: CYANOCOBALAMIN 1000 MCG TAB PO SCH (08:18)
--- NOTE | 2018-02-13 09:41 | BHS Progress Note ---
[facility] - Subjective Progress Notes Subjective Patient fairly pleasant this AM, and continues to demonstrate almost no immediate memory. Appetite appears good, some sleep disturbance continues. Difficulty in having patient take Aricept and Zyprexa in PM continues. No other concerns. Suicidal Ideation: None Homicidal Ideation: None [facility] - Objective Physical Exam Muscle Strength and Tone: WNL Gait and Station: Steady [facility] Medications Reviewed: Side Effects, Benefits of Medication, Risks Allergies Reviewed: Yes Mental Status Exam General Appearance: Casual, Good Eye Contact, Unkept (minimally), Psychomotor Agitation (At times is frustrated and walks in halting manner.); No Psychomotor Retardation, No Bizarre Mannerisms, No Tics Speech: Clear, Spontaneous, Normal Rate, Normal Rhythm, Normal Volume, Normal Tone, Rambling (Compelled to tell the same story to the same persons many times without recognition of the person he previously told the story to, or the content of the story.) Mood: Dysthmic/Depressed (Patient verbalizes high frustration, say he feels as though he is in custodial.) Affect: Neutral; No Withdrawn; Anxious (at times), Agitated (at times) Thought Process: No Loose Associations, No Flight of Ideas; Other (Perseverates) Thought Content: Suicidal Ideation (references stemming from frustration of cu rrent condition at times.), Other (paranoia associated with dementia) Cognition: Alert & Oriented-Person; No Alert & Oriented-Place (Believes the hospital is a senior care, or says he feels as though the hospital is a senior care.), No Alert & Oriented-Time, No Cnagq-Lpcamdwt-Itietxwip Memory: No Immediate, No Recent; Remote, Other (Memory is problematic, repeats himself for hours on end.) Intelligence: Average (historically seems to have been average) Insight Judgment: Poor (Secondary to advancing dementia, cannot make sound decisions, with extremely limited immediate memory) [facility] Assessment and Plan [id number] Encounter Date: Feb 13, 2018 Rfso-uh-Iwij Encounter Time: 09:30 [facility] Plan: Necessary Precautions, Individual/Group Therapy, Admin/Titrate Meds, Educate Patient Tobacco Medications: Not Appropriate Condition Multpiple Antipsychotics Used: No Problems: (1) Major neurocognitive disorder Status: Chronic Assessment & Plan: patient in need of intermediate teacher placement, and guardianship Condition 1. continue to persue guardianship and placement. LINWOOD GIRON MD Feb 13, 2018 09:41
[2018-02-13 13:20] VITALS: BP 122/62
[2018-02-13] MEDS: OLANZapine 5 MG TAB PO SCH (17:00)
[2018-02-13] MEDS: DONEPEZIL HCL 5 MG TAB PO SCH (17:00)
[2018-02-14] MEDS: OMEGA-3 500 MG CAP PO SCH (08:16)
[2018-02-14] MEDS: THIAMINE HCL 100 MG TAB PO SCH (08:17)
[2018-02-14] MEDS: CYANOCOBALAMIN 1000 MCG TAB PO SCH (08:17)
[2018-02-14] MEDS: CHOLECALCIFEROL 1000 UNIT TAB PO SCH (08:17)
[2018-02-14] MEDS: MULTIVITAMINS TAB PO SCH (08:17)
[2018-02-14] MEDS: FOLIC ACID 1 MG TAB PO SCH (08:17)
--- NOTE | 2018-02-14 10:10 | BHS Progress Note ---
S - Subjective Progress Notes Subjective "I didn't do anything to deserve being here. Look, I've never done anything wrong in my life. I just want to live independently." Repetitive conversations regarding circumstances leading to admission, frustrated with lack of ability to leave Suicidal Ideation: None Homicidal Ideation: None S - Objective Physical Exam Vital Signs Vital Signs Date Time Temp Pulse Resp B/P (MAP) Pulse Ox O2 Delivery O2 Flow Rate FiO2 02/13/18 13:20 98.7 61 18 122/62 (82) 94 Room Air Muscle Strength and Tone: WNL Gait and Station: Steady [facility] Medications Reviewed: Side Effects, Benefits of Medication, Risks Allergies Reviewed: Yes Mental Status Exam General Appearance: Casual, Good Eye Contact, Unkept (minimally), Psychomotor Agitation (At times is frustrated and walks in halting manner.); No Psychomotor Retardation, No Bizarre Mannerisms, No Tics Speech: Clear, Spontaneous, Normal Rate, Normal Rhythm, Normal Volume, Normal Tone, Rambling (Compelled to tell the same story to the same persons many times without recognition of the person he previously told the story to, or the content of the story.) Mood: Dysthmic/Depressed (Patient verbalizes high frustration, say he feels as though he is in assisted.) Affect: Neutral; No Withdrawn; Anxious (at times), Agitated (at times) Thought Process: No Loose Associations, No Flight of Ideas; Other (Perseverates) Thought Content: Suicidal Ideation (references stemming from frustration of current condition at times.), Other (paranoia associated with dementia) Cognition: Alert & Oriented-Person; No Alert & Oriented-Place (Believes the hospital is a [facility], or says he feels as though the hospital is a [facility].), No Alert & Oriented-Time, No Wajvu-Mfkyxtlx-Ixmynmdqq Memory: No Immediate, No Recent; Remote, Other (Memory is problematic, repeats himself for hours on end.) Intelligence: Average (historically seems to have been average) Insight Judgment: Poor (Secondary to advancing dementia, cannot make sound decisions, with extremely limited immediate memory) Lab Laboratory Tests 01/27/18 11:33 Laboratory Tests 01/22/18 00:00: Vitamin D 25-Hydroxy 34, Free Thyroxine 1.25, Free Triiodothyronine 2.5 01/22/18 07:10: Urine Opiates Screen Negative, Urine Barbiturates Screen Negative, Ur Tricyclic Antidepressants Screen Negative, Urine Phencyclidine Screen Negative, Urine Amphetamines Screen Negative, Urine Benzodiazepines Screen Negative, Urine Cocaine Screen Negative, Urine Cannabinoids Screen Negative 01/22/18 14:48: Vitamin B12 Level 591, Folate 20.2 01/27/18 11:32: Whole Blood Glucose 134 01/27/18 11:33: White Blood Count 5.7, Red Blood Count 4.90, Hemoglobin 14.3, Hematocrit 42.8, Mean Corpuscular Volume 87.4, Mean Corpuscular Hemoglobin 29.1, Mean Corpuscular Hemoglobin Concent 33.3, Red Cell Distribution Width 13.5, Platelet Count 377, Mean Platelet Volume 8.0, Neutrophils (%) (Auto) 77.1, Lymphocytes (%) (Auto) 12.6, Monocytes (%) (Auto) 7.5, Eosinophils (%) (Auto) 1.6, Basophils (%) (Auto) 1.2, Nucleated RBC Relative Count (auto) 0.1, Neutrophils # (Auto) 4.4, Lymphocytes # (Auto) 0.7, Monocytes # (Auto) 0.4, Eosinophils # (Auto) 0.1, Basophils # (Auto) 0.1, Nucleated RBC Absolute Count (auto) 0.00, Urine Color Kristen, Urine Clarity Slightly-cloudy, Urine pH 5.0, Urine Specific [place] 1.024, Urine Protein Negative, Urine Glucose (UA) Negative, Urine Ketones Negative, Urine Blood Negative, Urine Nitrite Negative, Urine Bilirubin Negative, Urine Urobilinogen 4.0, Urine Leukocyte Esterase Negative, Urine RBC None, Urine WBC 1, Urine Squamous Epithelial Cells Few, Urine Bacteria Few, Urine Hyaline Casts Few, Urine Mucus Few, Sodium Level 141, Potassium Level 3.8, Chloride Level 101, Carbon Dioxide Level 27, Blood Urea Nitrogen 17, Creatinine 0.80, Glomerular Filtration Rate Calc > 60.0, Random Glucose 166, Calcium Level 8.8, Total Bilirubin 1.1, Aspartate Amino Transf (AST/SGOT) 22, Alanine Aminotransferase (ALT/SGPT) 26, Alkaline Phosphatase 83, Total Protein 6.5, Albumin 3.8 [facility] Assessment and Plan [id number] Encounter Date: Feb 14, 2018 Uhgy-ll-Qypz Encounter Time: 09:45 [facility] Plan: Necessary Precautions, Individual/Group Therapy, Admin/Titrate Meds, Educate Patient Tobacco Medications: Not Appropriate Condition Multpiple Antipsychotics Used: No Problems: (1) Major neurocognitive disorder Status: Chronic (2) Altered mental status, unspecified Status: Acute Condition Continue encouragement of medications as ordered Continue to pursue guardianship and placement. PA SAEED NP Feb 14, 2018 10:10
[2018-02-14] MEDS: OLANZapine 5 MG TAB PO SCH (16:58)
[2018-02-14] MEDS: DONEPEZIL HCL 5 MG TAB PO SCH (16:58)
[2018-02-15] MEDS: FOLIC ACID 1 MG TAB PO SCH (08:57)
[2018-02-15] MEDS: CYANOCOBALAMIN 1000 MCG TAB PO SCH (08:57)
[2018-02-15] MEDS: MULTIVITAMINS TAB PO SCH (08:57)
[2018-02-15] MEDS: OMEGA-3 500 MG CAP PO SCH (08:57)
[2018-02-15] MEDS: CHOLECALCIFEROL 1000 UNIT TAB PO SCH (08:57)
[2018-02-15] MEDS: THIAMINE HCL 100 MG TAB PO SCH (08:57)
--- NOTE | 2018-02-15 10:30 | BHS Progress Note ---
S - Subjective Progress Notes Subjective "I didn't come here because I wanted to and I need my freedom." Ambulates well without assistive devices, eating and drinking well Irritable, insisting that he needs to leave, refusing medications Suicidal Ideation: None Homicidal Ideation: None S - Objective Physical Exam Vital Signs Vital Signs Date Time Temp Pulse Resp B/P (MAP) Pulse Ox O2 Delivery O2 Flow Rate FiO2 02/13/18 13:20 98.7 61 18 122/62 (82) 94 Room Air Muscle Strength and Tone: WNL Gait and Station: Steady [facility] Medications Reviewed: Side Effects, Benefits of Medication, Risks Allergies Reviewed: Yes Mental Status Exam General Appearance: Casual, Good Eye Contact, Unkept (minimally), Psychomotor Agitation (At times is frustrated and walks in halting manner.); No Psychomotor Retardation, No Bizarre Mannerisms, No Tics Speech: Clear, Spontaneous, Normal Rate, Normal Rhythm, Normal Volume, Normal Tone, Rambling (Compelled to tell the same story to the same persons many times without recognition of the person he previously told the story to, or the content of the story.) Mood: Dysthmic/Depressed (Patient verbalizes high frustration, say he feels as though he is in alf.) Affect: Neutral; No Withdrawn; Anxious (at times), Agitated (at times) Thought Process: No Loose Associations, No Flight of Ideas; Other (Perseverates) Thought Content: Suicidal Ideation (references stemming from frustration of current condition at times.), Other (paranoia associated with dementia) Cognition: Alert & Oriented-Person; No Alert & Oriented-Place (Believes the hospital is a senior living, or says he feels as though the hospital is a senior living.), No Alert & Oriented-Time, No Alobn-Okcpfmyd-Deqmcmqgf Memory: No Immediate, No Recent; Remote, Other (Memory is problematic, repeats himself for hours on end.) Intelligence: Average (historically seems to have been average) Insight Judgment: Poor (Secondary to advancing dementia, cannot make sound decisions, with extremely limited immediate memory) Microbiology Laboratory Tests 01/27/18 11:33 Laboratory Tests 01/22/18 00:00: Vitamin D 25-Hydroxy 34, Free Thyroxine 1.25, Free Triiodothyronine 2.5 01/22/18 07:10: Urine Opiates Screen Negative, Urine Barbiturates Screen Negative, Ur Tricyclic Antidepressants Screen Negative, Urine Phencyclidine Screen Negative, Urine Amphetamines Screen Negative, Urine Benzodiazepines Screen Negative, Urine Cocaine Screen Negative, Urine Cannabinoids Screen Negative 01/22/18 14:48: Vitamin B12 Level 591, Folate 20.2 01/27/18 11:32: Whole Blood Glucose 134 01/27/18 11:33: White Blood Count 5.7, Red Blood Count 4.90, Hemoglobin 14.3, Hematocrit 42.8, Mean Corpuscular Volume 87.4, Mean Corpuscular Hemoglobin 29.1, Mean Corpuscular Hemoglobin Concent 33.3, Red Cell Distribution Width 13.5, Platelet Count 377, Mean Platelet Volume 8.0, Neutrophils (%) (Auto) 77.1, Lymphocytes (%) (Auto) 12.6, Monocytes (%) (Auto) 7.5, Eosinophils (%) (Auto) 1.6, Basophils (%) (Auto) 1.2, Nucleated RBC Relative Count (auto) 0.1, Neutrophils # (Auto) 4.4, Lymphocytes # (Auto) 0.7, Monocytes # (Auto) 0.4, Eosinophils # (Auto) 0.1, Basophils # (Auto) 0.1, Nucleated RBC Absolute Count (auto) 0.00, Urine Color Kristen, Urine Clarity Slightly-cloudy, Urine pH 5.0, Urine Specific [place] 1.024, Urine Protein Negative, Urine Glucose (UA) Negative, Urine Ketones Negative, Urine Blood Negative, Urine Nitrite Negative, Urine Bilirubin Negative, Urine Urobilinogen 4.0, Urine Leukocyte Esterase Negative, Urine RBC None, Urine WBC 1, Urine Squamous Epithelial Cells Few, Urine Bacteria Few, Urine Hyaline Casts Few, Urine Mucus Few, Sodium Level 141, Potassium Level 3.8, Chloride Level 101, Carbon Dioxide Level 27, Blood Urea Nitrogen 17, Creatinine 0.80, Glomerular Filtration Rate Calc > 60.0, Random Glucose 166, Calcium Level 8.8, Total Bilirubin 1.1, Aspartate Amino Transf (AST/SGOT) 22, Alanine Aminotransferase (ALT/SGPT) 26, Alkaline Phosphatase 83, Total Protein 6.5, Albumin 3.8 [facility] Assessment and Plan [id number] Encounter Date: Feb 15, 2018 Ibmz-ut-Npua Encounter Time: 10:21 [facility] Plan: Necessary Precautions, Individual/Group Therapy, Admin/Titrate Meds, Educate Patient Tobacco Medications: Not Appropriate Condition Multpiple Antipsychotics Used: No Problems: (1) Major neurocognitive disorder Status: Chronic (2) Altered mental status, unspecified Status: Acute Condition Continue encouragement of medications Maintain fall precautions Awaiting transfer PA SAEED NP Feb 15, 2018 10:30
[2018-02-15] MEDS: DONEPEZIL HCL 5 MG TAB PO SCH (17:00)
[2018-02-15] MEDS: OLANZapine 5 MG TAB PO SCH (17:00)
[2018-02-16] MEDS: OMEGA-3 500 MG CAP PO SCH (08:21)
[2018-02-16] MEDS: CHOLECALCIFEROL 1000 UNIT TAB PO SCH (08:21)
[2018-02-16] MEDS: CYANOCOBALAMIN 1000 MCG TAB PO SCH (08:21)
[2018-02-16] MEDS: THIAMINE HCL 100 MG TAB PO SCH (08:21)
[2018-02-16] MEDS: FOLIC ACID 1 MG TAB PO SCH (08:21)
[2018-02-16] MEDS: MULTIVITAMINS TAB PO SCH (08:21)
--- NOTE | 2018-02-16 10:01 | BHS Progress Note ---
[facility] - Subjective Progress Notes Subjective Patient continues to demonstrate a grossly limited immediate memory. Appetite and sleep overall intact. Patient continues to refuse medications. Not likely that a reversible cause of patient's dementia will be found. Patient in need of guardianship and placement in remote computer terminal operator care. No other concerns. Suicidal Ideation: None Homicidal Ideation: None [facility] - Objective Physical Exam Vital Signs Hematology Test 01/22/18 00:00 01/22/18 07:10 01/22/18 14:48 01/27/18 11:32 Vitamin D 25-Hydroxy 34 ng/ml (30-100) Free Thyroxine 1.25 ng/dl (0.78-2.19) Free Triiodothyronine 2.5 pg/mL (2.4-4.2) Urine Opiates Screen Negative Urine Barbiturates Screen Negative Ur Tricyclic Antidepressants Screen Negative Urine Phencyclidine Screen Negative Urine Amphetamines Screen Negative Urine Benzodiazepines Screen Negative Urine Cocaine Screen Negative Urine Cannabinoids Screen Negative Vitamin B12 Level 591 pg/mL (180-914) Folate 20.2 ng/mL (>=5.9) Whole Blood Glucose 134 mg/DL (75-110) Test 01/27/18 11:33 Red Blood Count 4.90 M/uL (4.00-5.60) Mean Corpuscular Volume 87.4 fL (80.0-96.0) Mean Corpuscular Hemoglobin 29.1 pg (26.0-33.0) Mean Corpuscular Hemoglobin Concent 33.3 g/dL (32.0-36.0) Red Cell Distribution Width 13.5 % (11.5-14.5) Mean Platelet Volume 8.0 fL (7.2-11.1) Neutrophils (%) (Auto) 77.1 % (39.4-72.5) Lymphocytes (%) (Auto) 12.6 % (17.6-49.6) Monocytes (%) (Auto) 7.5 % (4.1-12.4) Eosinophils (%) (Auto) 1.6 % (0.4-6.7) Basophils (%) (Auto) 1.2 % (0.3-1.4) Nucleated RBC Relative Count (auto) 0.1 /100WBC Neutrophils # (Auto) 4.4 K/uL (2.0-7.4) Lymphocytes # (Auto) 0.7 K/uL (1.3-3.6) Monocytes # (Auto) 0.4 K/uL (0.3-1.0) Eosinophils # (Auto) 0.1 K/uL (0.0-0.5) Basophils # (Auto) 0.1 K/uL (0.0-0.1) Nucleated RBC Absolute Count (auto) 0.00 K/uL Urine Color Kristen Urine Clarity Slightly-cloudy Urine pH 5.0 pH (4.8-9.5) Urine Specific [place] 1.024 Urine Protein Negative mg/dL (NEGATIVE) Urine Glucose (UA) Negative mg/dL (NEGATIVE) Urine Ketones Negative mg/dL (NEGATIVE) Urine Blood Negative (NEGATIVE) Urine Nitrite Negative (NEGATIVE) Urine Bilirubin Negative (NEGATIVE) Urine Urobilinogen 4.0 mg/dL (0.2-1.9) Urine Leukocyte Esterase Negative (NEGATIVE) Urine RBC None /HPF (0-2/HPF) Urine WBC 1 /HPF (0-5/HPF) Urine Squamous Epithelial Cells Few /LPF (</=FEW) Urine Bacteria Few /HPF (NONE-FEW) Urine Hyaline Casts Few /LPF (NONE-FEW) Urine Mucus Few /HPF (NONE-FEW) Sodium Level 141 mmol/L (137-145) Potassium Level 3.8 mmol/L (3.5-5.0) Chloride Level 101 mmol/L (98-107) Carbon Dioxide Level 27 mmol/L (22-30) Blood Urea Nitrogen 17 mg/dl (9-21) Creatinine 0.80 mg/dl (0.66-1.25) Glomerular Filtration Rate Calc > 60.0 Random Glucose 166 mg/dl (75-110) Calcium Level 8.8 mg/dl (8.4-10.2) Total Bilirubin 1.1 mg/dl (0.2-1.3) Aspartate Amino Transf (AST/SGOT) 22 U/L (0-35) Alanine Aminotransferase (ALT/SGPT) 26 U/L (0-56) Alkaline Phosphatase 83 U/L (0-126) Total Protein 6.5 g/dl (6.3-8.2) Albumin 3.8 g/dl (3.5-5.0) Chemistry Test 01/22/18 00:00 01/22/18 07:10 01/22/18 14:48 9/4/18 11:32 Vitamin D 25-Hydroxy 34 ng/ml (30-100) Free Thyroxine 1.25 ng/dl (0.78-2.19) Free Triiodothyronine 2.5 pg/mL (2.4-4.2) Urine Opiates Screen Negative Urine Barbiturates Screen Negative Ur Tricyclic Antidepressants Screen Negative Urine Phencyclidine Screen Negative Urine Amphetamines Screen Negative Urine Benzodiazepines Screen Negative Urine Cocaine Screen Negative Urine Cannabinoids Screen Negative Vitamin B12 Level 591 pg/mL (180-914) Folate 20.2 ng/mL (>=5.9) Whole Blood Glucose 134 mg/DL (75-110) Test 01/27/18 11:33 White Blood Count 5.7 k/uL (4.5-11.0) Red Blood Count 4.90 M/uL (4.00-5.60) Hemoglobin 14.3 g/dL (14.0-18.0) Hematocrit 42.8 % (42.0-52.0) Mean Corpuscular Volume 87.4 fL (80.0-96.0) Mean Corpuscular Hemoglobin 29.1 pg (26.0-33.0) Mean Corpuscular Hemoglobin Concent 33.3 g/dL (32.0-36.0) Red Cell Distribution Width 13.5 % (11.5-14.5) Platelet Count 377 K/uL (150-450) Mean Platelet Volume 8.0 fL (7.2-11.1) Neutrophils (%) (Auto) 77.1 % (39.4-72.5) Lymphocytes (%) (Auto) 12.6 % (17.6-49.6) Monocytes (%) (Auto) 7.5 % (4.1-12.4) Eosinophils (%) (Auto) 1.6 % (0.4-6.7) Basophils (%) (Auto) 1.2 % (0.3-1.4) Nucleated RBC Relative Count (auto) 0.1 /100WBC Neutrophils # (Auto) 4.4 K/uL (2.0-7.4) Lymphocytes # (Auto) 0.7 K/uL (1.3-3.6) Monocytes # (Auto) 0.4 K/uL (0.3-1.0) Eosinophils # (Auto) 0.1 K/uL (0.0-0.5) Basophils # (Auto) 0.1 K/uL (0.0-0.1) Nucleated RBC Absolute Count (auto) 0.00 K/uL Urine Color Kristen Urine Clarity Slightly-cloudy Urine pH 5.0 pH (4.8-9.5) Urine Specific [place] 1.024 Urine Protein Negative mg/dL (NEGATIVE) Urine Glucose (UA) Negative mg/dL (NEGATIVE) Urine Ketones Negative mg/dL (NEGATIVE) Urine Blood Negative (NEGATIVE) Urine Nitrite Negative (NEGATIVE) Urine Bilirubin Negative (NEGATIVE) Urine Urobilinogen 4.0 mg/dL (0.2-1.9) Urine Leukocyte Esterase Negative (NEGATIVE) Urine RBC None /HPF (0-2/HPF) Urine WBC 1 /HPF (0-5/HPF) Urine Squamous Epithelial Cells Few /LPF (</=FEW) Urine Bacteria Few /HPF (NONE-FEW) Urine Hyaline Casts Few /LPF (NONE-FEW) Urine Mucus Few /HPF (NONE-FEW) Glomerular Filtration Rate Calc > 60.0 Calcium Level 8.8 mg/dl (8.4-10.2) Total Bilirubin 1.1 mg/dl (0.2-1.3) Aspartate Amino Transf (AST/SGOT) 22 U/L (0-35) Alanine Aminotransferase (ALT/SGPT) 26 U/L (0-56) Alkaline Phosphatase 83 U/L (0-126) Total Protein 6.5 g/dl (6.3-8.2) Albumin 3.8 g/dl (3.5-5.0) Toxicology Test 01/22/18 07:10 Urine Opiates Screen Negative Urine Barbiturates Screen Negative Ur Tricyclic Antidepressants Screen Negative Urine Phencyclidine Screen Negative Urine Amphetamines Screen Negative Urine Benzodiazepines Screen Negative Urine Cocaine Screen Negative Urine Cannabinoids Screen Negative Urinalysis Test 01/27/18 11:33 Urine Color Kristen Urine Clarity Slightly-cloudy Urine pH 5.0 pH (4.8-9.5) Urine Specific [place] 1.024 Urine Protein Negative mg/dL (NEGATIVE) Urine Glucose (UA) Negative mg/dL (NEGATIVE) Urine Ketones Negative mg/dL (NEGATIVE) Urine Blood Negative (NEGATIVE) Urine Nitrite Negative (NEGATIVE) Urine Bilirubin Negative (NEGATIVE) Urine Urobilinogen 4.0 mg/dL (0.2-1.9) Urine Leukocyte Esterase Negative (NEGATIVE) Urine RBC None /HPF (0-2/HPF) Urine WBC 1 /HPF (0-5/HPF) Urine Squamous Epithelial Cells Few /LPF (</=FEW) Urine Bacteria Few /HPF (NONE-FEW) Urine Hyaline Casts Few /LPF (NONE-FEW) Urine Mucus Few /HPF (NONE-FEW) Vital Signs Date Time Temp Pulse Resp B/P (MAP) Pulse Ox O2 Delivery O2 Flow Rate FiO2 02/13/18 13:20 98.7 61 18 122/62 (82) 94 Room Air Muscle Strength and Tone: WNL Gait and Station: Steady [facility] Medications Reviewed: Side Effects, Benefits of Medication, Risks Allergies Reviewed: Yes Mental Status Exam General Appearance: Casual, Good Eye Contact, Polite, Unkept (minimally); No Tearful; Psychomotor Agitation (At times is frustrated and walks in halting manner.); No Psychomotor Retardation, No Bizarre Mannerisms, No Tics Speech: Clear, Spontaneous, Normal Rate, Normal Rhythm, Normal Volume, Normal Tone; No Slurred, No Garbled; Rambling (Compelled to tell the same story to the same persons many times without recognition of the person he previously told the story to, or the content of the story.) Mood: Dysthmic/Depressed (Patient verbalizes high frustration, say he feels as though he is in [facility].) Affect: Neutral; No Withdrawn; Anxious (at times), Agitated (at times) Thought Process: No Loose Associations, No Flight of Ideas; Other (Pe rseverates) Thought Content: Suicidal Ideation (references stemming from frustration of current condition at times.); No Homicidal Ideation, No Delusions, No Auditory Halllucinations, No Visual Hallucinations, No Thought Broadcasting, No Ideas of Reference, No Obsessions; Other (paranoia associated with dementia) Cognition: Alert & Oriented-Person; No Alert & Oriented-Place (Believes the hospital is a skilled nursing, or says he feels as though the hospital is a skilled nursing.), No Alert & Oriented-Time, No Hvbem-Hqvjsynm-Qszxkewyb Memory: No Immediate, No Recent; Remote, Other (Memory is problematic, repeats himself for hours on end.) Intelligence: Average (historically seems to have been average) Insight Judgment: Poor (Secondary to advancing dementia, cannot make sound decisions, with extremely limited immediate memory) [facility] Assessment and Plan Egvz-or-Lbry Encounter Date: Feb 16, 2018 Dpek-of-Pbmi Encounter Time: 09:00 [facility] Plan: Necessary Precautions, Individual/Group Therapy, Admin/Titrate Meds, Educate Patient Tobacco Medications: Not Appropriate Condition Multpiple Antipsychotics Used: No Problems: (1) Major neurocognitive disorder Status: Chronic Assessment & Plan: patient in need of correction placement, and guardianship Condition 1. await transfer to [facility]. 2. encourage compliance with low dose zyprexa and aricept. LINWOOD GIRON MD Feb 16, 2018 10:01
[2018-02-16] MEDS: OLANZapine 5 MG TAB PO SCH (16:59)
[2018-02-16] MEDS: DONEPEZIL HCL 5 MG TAB PO SCH (16:59)
[2018-02-17] MEDS: FOLIC ACID 1 MG TAB PO SCH (08:49)
[2018-02-17] MEDS: OMEGA-3 500 MG CAP PO SCH (08:49)
[2018-02-17] MEDS: CYANOCOBALAMIN 1000 MCG TAB PO SCH (08:51)
[2018-02-17] MEDS: MULTIVITAMINS TAB PO SCH (08:51)
[2018-02-17] MEDS: CHOLECALCIFEROL 1000 UNIT TAB PO SCH (08:51)
[2018-02-17] MEDS: THIAMINE HCL 100 MG TAB PO SCH (08:51)
--- NOTE | 2018-02-17 13:22 | BHS Progress Note ---
BHS - Subjective Progress Notes Subjective Patient continues to be overall cooperative, and redirectable on the unit. Ongoing frustration with feeling like he is a "prisoner" and that he just "wants to be free". Patient's appetite and sleep grossly intact. No other concerns. Suicidal Ideation: None Homicidal Ideation: None BHS - Objective Physical Exam Vital Signs Vital Signs Date Time Temp Pulse Resp B/P (MAP) Pulse Ox O2 Delivery O2 Flow Rate FiO2 02/13/18 13:20 98.7 61 18 122/62 (82) 94 Room Air Hematology Test 01/22/18 00:00 01/22/18 07:10 01/22/18 14:48 01/27/18 11:32 Vitamin D 25-Hydroxy 34 ng/ml (30-100) Free Thyroxine 1.25 ng/dl (0.78-2.19) Free Triiodothyronine 2.5 pg/mL (2.4-4.2) Urine Opiates Screen Negative Urine Barbiturates Screen Negative Ur Tricyclic Antidepressants Screen Negative Urine Phencyclidine Screen Negative Urine Amphetamines Screen Negative Urine Benzodiazepines Screen Negative Urine Cocaine Screen Negative Urine Cannabinoids Screen Negative Vitamin B12 Level 591 pg/mL (180-914) Folate 20.2 ng/mL (>=5.9) Whole Blood Glucose 134 mg/DL (75-110) Test 01/27/18 11:33 Red Blood Count 4.90 M/uL (4.00-5.60) Mean Corpuscular Volume 87.4 fL (80.0-96.0) Mean Corpuscular Hemoglobin 29.1 pg (26.0-33.0) Mean Corpuscular Hemoglobin Concent 33.3 g/dL (32.0-36.0) Red Cell Distribution Width 13.5 % (11.5-14.5) Mean Platelet Volume 8.0 fL (7.2-11.1) Neutrophils (%) (Auto) 77.1 % (39.4-72.5) Lymphocytes (%) (Auto) 12.6 % (17.6-49.6) Monocytes (%) (Auto) 7.5 % (4.1-12.4) Eosinophils (%) (Auto) 1.6 % (0.4-6.7) Basophils (%) (Auto) 1.2 % (0.3-1.4) Nucleated RBC Relative Count (auto) 0.1 /100WBC Neutrophils # (Auto) 4.4 K/uL (2.0-7.4) Lymphocytes # (Auto) 0.7 K/uL (1.3-3.6) Monocytes # (Auto) 0.4 K/uL (0.3-1.0) Eosinophils # (Auto) 0.1 K/uL (0.0-0.5) Basophils # (Auto) 0.1 K/uL (0.0-0.1) Nucleated RBC Absolute Count (auto) 0.00 K/uL Urine Color Kristen Urine Clarity Slightly-cloudy Urine pH 5.0 pH (4.8-9.5) Urine Specific [place] 1.024 Urine Protein Negative mg/dL (NEGATIVE) Urine Glucose (UA) Negative mg/dL (NEGATIVE) Urine Ketones Negative mg/dL (NEGATIVE) Urine Blood Negative (NEGATIVE) Urine Nitrite Negative (NEGATIVE) Urine Bilirubin Negative (NEGATIVE) Urine Urobilinogen 4.0 mg/dL (0.2-1.9) Urine Leukocyte Esterase Negative (NEGATIVE) Urine RBC None /HPF (0-2/HPF) Urine WBC 1 /HPF (0-5/HPF) Urine Squamous Epithelial Cells Few /LPF (</=FEW) Urine Bacteria Few /HPF (NONE-FEW) Urine Hyaline Casts Few /LPF (NONE-FEW) Urine Mucus Few /HPF (NONE-FEW) Sodium Level 141 mmol/L (137-145) Potassium Level 3.8 mmol/L (3.5-5.0) Chloride Level 101 mmol/L (98-107) Carbon Dioxide Level 27 mmol/L (22-30) Blood Urea Nitrogen 17 mg/dl (9-21) Creatinine 0.80 mg/dl (0.66-1.25) Glomerular Filtration Rate Calc > 60.0 Random Glucose 166 mg/dl (75-110) Calcium Level 8.8 mg/dl (8.4-10.2) Total Bilirubin 1.1 mg/dl (0.2-1.3) Aspartate Amino Transf (AST/SGOT) 22 U/L (0-35) Alanine Aminotransferase (ALT/SGPT) 26 U/L (0-56) Alkaline Phosphatase 83 U/L (0-126) Total Protein 6.5 g/dl (6.3-8.2) Albumin 3.8 g/dl (3.5-5.0) Chemistry Test 01/22/18 00:00 01/22/18 07:10 01/22/18 14:48 01/27/18 11:32 Vitamin D 25-Hydroxy 34 ng/ml (30-100) Free Thyroxine 1.25 ng/dl (0.78-2.19) Free Triiodothyronine 2.5 pg/mL (2.4-4.2) Urine Opiates Screen Negative Urine Barbiturates Screen Negative Ur Tricyclic Antidepressants Screen Negative Urine Phencyclidine Screen Negative Urine Amphetamines Screen Negative Urine Benzodiazepines Screen Negative Urine Cocaine Screen Negative Urine Cannabinoids Screen Negative Vitamin B12 Level 591 pg/mL (180-914) Folate 20.2 ng/mL (>=5.9) Whole Blood Glucose 134 mg/DL (75-110) Test 01/27/18 11:33 White Blood Count 5.7 k/uL (4.5-11.0) Red Blood Count 4.90 M/uL (4.00-5.60) Hemoglobin 14.3 g/dL (14.0-18.0) Hematocrit 42.8 % (42.0-52.0) Mean Corpuscular Volume 87.4 fL (80.0-96.0) Mean Corpuscular Hemoglobin 29.1 pg (26.0-33.0) Mean Corpuscular Hemoglobin Concent 33.3 g/dL (32.0-36.0) Red Cell Distribution Width 13.5 % (11.5-14.5) Platelet Count 377 K/uL (150-450) Mean Platelet Volume 8.0 fL (7.2-11.1) Neutrophils (%) (Auto) 77.1 % (39.4-72.5) Lymphocytes (%) (Auto) 12.6 % (17.6-49.6) Monocytes (%) (Auto) 7.5 % (4.1-12.4) Eosinophils (%) (Auto) 1.6 % (0.4-6.7) Basophils (%) (Auto) 1.2 % (0.3-1.4) Nucleated RBC Relative Count (auto) 0.1 /100WBC Neutrophils # (Auto) 4.4 K/uL (2.0-7.4) Lymphocytes # (Auto) 0.7 K/uL (1.3-3.6) Monocytes # (Auto) 0.4 K/uL (0.3-1.0) Eosinophils # (Auto) 0.1 K/uL (0.0-0.5) Basophils # (Auto) 0.1 K/uL (0.0-0.1) Nucleated RBC Absolute Count (auto) 0.00 K/uL Urine Color Kristen Urine Clarity Slightly-cloudy Urine pH 5.0 pH (4.8-9.5) Urine Specific [place] 1.024 Urine Protein Negative mg/dL (NEGATIVE) Urine Glucose (UA) Negative mg/dL (NEGATIVE) Urine Ketones Negative mg/dL (NEGATIVE) Urine Blood Negative (NEGATIVE) Urine Nitrite Negative (NEGATIVE) Urine Bilirubin Negative (NEGATIVE) Urine Urobilinogen 4.0 mg/dL (0.2-1.9) Urine Leukocyte Esterase Negative (NEGATIVE) Urine RBC None /HPF (0-2/HPF) Urine WBC 1 /HPF (0-5/HPF) Urine Squamous Epithelial Cells Few /LPF (</=FEW) Urine Bacteria Few /HPF (NONE-FEW) Urine Hyaline Casts Few /LPF (NONE-FEW) Urine Mucus Few /HPF (NONE-FEW) Glomerular Filtration Rate Calc > 60.0 Calcium Level 8.8 mg/dl (8.4-10.2) Total Bilirubin 1.1 mg/dl (0.2-1.3) Aspartate Amino Transf (AST/SGOT) 22 U/L (0-35) Alanine Aminotransferase (ALT/SGPT) 26 U/L (0-56) Alkaline Phosphatase 83 U/L (0-126) Total Protein 6.5 g/dl (6.3-8.2) Albumin 3.8 g/dl (3.5-5.0) Toxicology Test 01/22/18 07:10 Urine Opiates Screen Negative Urine Barbiturates Screen Negative Ur Tricyclic Antidepressants Screen Negative Urine Phencyclidine Screen Negative Urine Amphetamines Screen Negative Urine Benzodiazepines Screen Negative Urine Cocaine Screen Negative Urine Cannabinoids Screen Negative Urinalysis Test 01/27/18 11:33 Urine Color Kristen Urine Clarity Slightly-cloudy Urine pH 5.0 pH (4.8-9.5) Urine Specific [place] 1.024 Urine Protein Negative mg/dL (NEGATIVE) Urine Glucose (UA) Negative mg/dL (NEGATIVE) Urine Ketones Negative mg/dL (NEGATIVE) Urine Blood Negative (NEGATIVE) Urine Nitrite Negative (NEGATIVE) Urine Bilirubin Negative (NEGATIVE) Urine Urobilinogen 4.0 mg/dL (0.2-1.9) Urine Leukocyte Esterase Negative (NEGATIVE) Urine RBC None /HPF (0-2/HPF) Urine WBC 1 /HPF (0-5/HPF) Urine Squamous Epithelial Cells Few /LPF (</=FEW) Urine Bacteria Few /HPF (NONE-FEW) Urine Hyaline Casts Few /LPF (NONE-FEW) Urine Mucus Few /HPF (NONE-FEW) Muscle Strength and Tone: WNL Gait and Station: Steady BHS Medications Reviewed: Side Effects, Benefits of Medication, Risks Allergies Reviewed: Yes Mental Status Exam General Appearance: Casual, Good Eye Contact, Polite, Unkept (minimally); No Tearful; Psychomotor Agitation (At times is frustrated and walks in halting manner.); No Psychomotor Retardation, No Bizarre Mannerisms, No Tics Speech: Clear, Spontaneous, Normal Rate, Normal Rhythm, Normal Volume, Normal Tone; No Slurred, No Garbled; Rambling (Compelled to tell the same story to the same persons many times without recognition of the person he previously told the story to, or the content of the story.) Mood: Dysthmic/Depressed (Patient verbalizes high frustration, say he feels as though he is in prison.) Affect: Neutral; No Withdrawn; Anxious (at times), Agitated (at times) Thought Process: No Loose Associations, No Flight of Ideas; Other (Perseverates) Thought Content: Suicidal Ideation (references stemming from frustration of current condition at times.); No Homicidal Ideation, No Delusions, No Auditory Halllucinations, No Visual Hallucinations, No Thought Broadcasting, No Ideas of Reference, No Obsessions; Other (paranoia associated with dementia) Cognition: Alert & Oriented-Person; No Alert & Oriented-Place (Believes the hospital is a intermediate, or says he feels as though the hospital is a intermediate.), No Alert & Oriented-Time, No Rkxzz-Hyfmsuay-Dmkqqnndm Memory: No Immediate, No Recent; Remote, Other (Memory is problematic, repeats himself for hours on end.) Intelligence: Average (historically seems to have been average) Insight Judgment: Poor (Secondary to advancing dementia, cannot make sound decisions, with extremely limited immediate memory) [facility] Assessment and Plan [id number] Encounter Date: Feb 17, 2018 [id number] Encounter Time: 11:00 [facility] Plan: Necessary Precautions, Individual/Group Therapy, Admin/Titrate Meds, Educate Patient Tobacco Medications: Not Appropriate Condition Multpiple Antipsychotics Used: No Problems: (1) Major neurocognitive disorder Status: Chronic Assessment & Plan: 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 continue treatment. 2. encourage medication compliance. 3. look for placement LINWOOD GIRON MD Feb 17, 2018 13:22
[2018-02-17] MEDS: OLANZapine 5 MG TAB PO SCH (16:55)
[2018-02-17] MEDS: DONEPEZIL HCL 5 MG TAB PO SCH (16:55)
[2018-02-17] MEDS ORDERED: traZODone HCL 50 MG TAB PO SCH (21:00)
[2018-02-18] MEDS: FOLIC ACID 1 MG TAB PO SCH (08:15)
[2018-02-18] MEDS: OMEGA-3 500 MG CAP PO SCH (08:15)
[2018-02-18] MEDS: CYANOCOBALAMIN 1000 MCG TAB PO SCH (08:16)
[2018-02-18] MEDS: THIAMINE HCL 100 MG TAB PO SCH (08:16)
[2018-02-18] MEDS: MULTIVITAMINS TAB PO SCH (08:16)
[2018-02-18] MEDS: CHOLECALCIFEROL 1000 UNIT TAB PO SCH (08:16)
--- NOTE | 2018-02-18 10:25 | BHS Progress Note ---
BHS - Subjective Progress Notes Subjective Patient remains cooperative on the unit overall, appetite and sleep intact. Continues to refuse medications. No other concerns. Suicidal Ideation: None Homicidal Ideation: None S - Objective Physical Exam Vital Signs Hematology Test 01/22/18 00:00 01/22/18 07:10 01/22/18 14:48 01/27/18 11:32 Vitamin D 25-Hydroxy 34 ng/ml (30-100) Free Thyroxine 1.25 ng/dl (0.78-2.19) Free Triiodothyronine 2.5 pg/mL (2.4-4.2) Urine Opiates Screen Negative Urine Barbiturates Screen Negative Ur Tricyclic Antidepressants Screen Negative Urine Phencyclidine Screen Negative Urine Amphetamines Screen Negative Urine Benzodiazepines Screen Negative Urine Cocaine Screen Negative Urine Cannabinoids Screen Negative Vitamin B12 Level 591 pg/mL (180-914) Folate 20.2 ng/mL (>=5.9) Whole Blood Glucose 134 mg/DL (75-110) Test 01/27/18 11:33 Red Blood Count 4.90 M/uL (4.00-5.60) Mean Corpuscular Volume 87.4 fL (80.0-96.0) Mean Corpuscular Hemoglobin 29.1 pg (26.0-33.0) Mean Corpuscular Hemoglobin Concent 33.3 g/dL (32.0-36.0) Red Cell Distribution Width 13.5 % (11.5-14.5) Mean Platelet Volume 8.0 fL (7.2-11.1) Neutrophils (%) (Auto) 77.1 % (39.4-72.5) Lymphocytes (%) (Auto) 12.6 % (17.6-49.6) Monocytes (%) (Auto) 7.5 % (4.1-12.4) Eosinophils (%) (Auto) 1.6 % (0.4-6.7) Basophils (%) (Auto) 1.2 % (0.3-1.4) Nucleated RBC Relative Count (auto) 0.1 /100WBC Neutrophils # (Auto) 4.4 K/uL (2.0-7.4) Lymphocytes # (Auto) 0.7 K/uL (1.3-3.6) Monocytes # (Auto) 0.4 K/uL (0.3-1.0) Eosinophils # (Auto) 0.1 K/uL (0.0-0.5) Basophils # (Auto) 0.1 K/uL (0.0-0.1) Nucleated RBC Absolute Count (auto) 0.00 K/uL Urine Color Kristen Urine Clarity Slightly-cloudy Urine pH 5.0 pH (4.8-9.5) Urine Specific [place] 1.024 Urine Protein Negative mg/dL (NEGATIVE) Urine Glucose (UA) Negative mg/dL (NEGATIVE) Urine Ketones Negative mg/dL (NEGATIVE) Urine Blood Negative (NEGATIVE) Urine Nitrite Negative (NEGATIVE) Urine Bilirubin Negative (NEGATIVE) Urine Urobilinogen 4.0 mg/dL (0.2-1.9) Urine Leukocyte Esterase Negative (NEGATIVE) Urine RBC None /HPF (0-2/HPF) Urine WBC 1 /HPF (0-5/HPF) Urine Squamous Epithelial Cells Few /LPF (</=FEW) Urine Bacteria Few /HPF (NONE-FEW) Urine Hyaline Casts Few /LPF (NONE-FEW) Urine Mucus Few /HPF (NONE-FEW) Sodium Level 141 mmol/L (137-145) Potassium Level 3.8 mmol/L (3.5-5.0) Chloride Level 101 mmol/L (98-107) Carbon Dioxide Level 27 mmol/L (22-30) Blood Urea Nitrogen 17 mg/dl (9-21) Creatinine 0.80 mg/dl (0.66-1.25) Glomerular Filtration Rate Calc > 60.0 Random Glucose 166 mg/dl (75-110) Calcium Level 8.8 mg/dl (8.4-10.2) Total Bilirubin 1.1 mg/dl (0.2-1.3) Aspartate Amino Transf (AST/SGOT) 22 U/L (0-35) Alanine Aminotransferase (ALT/SGPT) 26 U/L (0-56) Alkaline Phosphatase 83 U/L (0-126) Total Protein 6.5 g/dl (6.3-8.2) Albumin 3.8 g/dl (3.5-5.0) Chemistry Test 01/22/18 00:00 01/22/18 07:10 01/22/18 14:48 01/27/18 11:32 Vitamin D 25-Hydroxy 34 ng/ml (30-100) Free Thyroxine 1.25 ng/dl (0.78-2.19) Free Triiodothyronine 2.5 pg/mL (2.4-4.2) Urine Opiates Screen Negative Urine Barbiturates Screen Negative Ur Tricyclic Antidepressants Screen Negative Urine Phencyclidine Screen Negative Urine Amphetamines Screen Negative Urine Benzodiazepines Screen Negative Urine Cocaine Screen Negative Urine Cannabinoids Screen Negative Vitamin B12 Level 591 pg/mL (180-914) Folate 20.2 ng/mL (>=5.9) Whole Blood Glucose 134 mg/DL (75-110) Test 01/27/18 11:33 White Blood Count 5.7 k/uL (4.5-11.0) Red Blood Count 4.90 M/uL (4.00-5.60) Hemoglobin 14.3 g/dL (14.0-18.0) Hematocrit 42.8 % (42.0-52.0) Mean Corpuscular Volume 87.4 fL (80.0-96.0) Mean Corpuscular Hemoglobin 29.1 pg (26.0-33.0) Mean Corpuscular Hemoglobin Concent 33.3 g/dL (32.0-36.0) Red Cell Distribution Width 13.5 % (11.5-14.5) Platelet Count 377 K/uL (150-450) Mean Platelet Volume 8.0 fL (7.2-11.1) Neutrophils (%) (Auto) 77.1 % (39.4-72.5) Lymphocytes (%) (Auto) 12.6 % (17.6-49.6) Monocytes (%) (Auto) 7.5 % (4.1-12.4) Eosinophils (%) (Auto) 1.6 % (0.4-6.7) Basophils (%) (Auto) 1.2 % (0.3-1.4) Nucleated RBC Relative Count (auto) 0.1 /100WBC Neutrophils # (Auto) 4.4 K/uL (2.0-7.4) Lymphocytes # (Auto) 0.7 K/uL (1.3-3.6) Monocytes # (Auto) 0.4 K/uL (0.3-1.0) Eosinophils # (Auto) 0.1 K/uL (0.0-0.5) Basophils # (Auto) 0.1 K/uL (0.0-0.1) Nucleated RBC Absolute Count (auto) 0.00 K/uL Urine Color Kristen Urine Clarity Slightly-cloudy Urine pH 5.0 pH (4.8-9.5) Urine Specific [place] 1.024 Urine Protein Negative mg/dL (NEGATIVE) Urine Glucose (UA) Negative mg/dL (NEGATIVE) Urine Ketones Negative mg/dL (NEGATIVE) Urine Blood Negative (NEGATIVE) Urine Nitrite Negative (NEGATIVE) Urine Bilirubin Negative (NEGATIVE) Urine Urobilinogen 4.0 mg/dL (0.2-1.9) Urine Leukocyte Esterase Negative (NEGATIVE) Urine RBC None /HPF (0-2/HPF) Urine WBC 1 /HPF (0-5/HPF) Urine Squamous Epithelial Cells Few /LPF (</=FEW) Urine Bacteria Few /HPF (NONE-FEW) Urine Hyaline Casts Few /LPF (NONE-FEW) Urine Mucus Few /HPF (NONE-FEW) Glomerular Filtration Rate Calc > 60.0 Calcium Level 8.8 mg/dl (8.4-10.2) Total Bilirubin 1.1 mg/dl (0.2-1.3) Aspartate Amino Transf (AST/SGOT) 22 U/L (0-35) Alanine Aminotransferase (ALT/SGPT) 26 U/L (0-56) Alkaline Phosphatase 83 U/L (0-126) Total Protein 6.5 g/dl (6.3-8.2) Albumin 3.8 g/dl (3.5-5.0) Toxicology Test 01/22/18 07:10 Urine Opiates Screen Negative Urine Barbiturates Screen Negative Ur Tricyclic Antidepressants Screen Negative Urine Phencyclidine Screen Negative Urine Amphetamines Screen Negative Urine Benzodiazepines Screen Negative Urine Cocaine Screen Negative Urine Cannabinoids Screen Negative Urinalysis Test 01/27/18 11:33 Urine Color Kristen Urine Clarity Slightly-cloudy Urine pH 5.0 pH (4.8-9.5) Urine Specific [employer] [place] 1.024 Urine Protein Negative mg/dL (NEGATIVE) Urine Glucose (UA) Negative mg/dL (NEGATIVE) Urine Ketones Negative mg/dL (NEGATIVE) Urine Blood Negative (NEGATIVE) Urine Nitrite Negative (NEGATIVE) Urine Bilirubin Negative (NEGATIVE) Urine Urobilinogen 4.0 mg/dL (0.2-1.9) Urine Leukocyte Esterase Negative (NEGATIVE) Urine RBC None /HPF (0-2/HPF) Urine WBC 1 /HPF (0-5/HPF) Urine Squamous Epithelial Cells Few /LPF (</=FEW) Urine Bacteria Few /HPF (NONE-FEW) Urine Hyaline Casts Few /LPF (NONE-FEW) Urine Mucus Few /HPF (NONE-FEW) Muscle Strength and Tone: WNL Gait and Station: Steady [facility] Medications Reviewed: Side Effects, Benefits of Medication, Risks Allergies Reviewed: Yes Mental Status Exam General Appearance: Casual, Good Eye Contact, Polite, Unkept (minimally); No Tearful; Psychomotor Agitation (At times is frustrated and walks in halting manner.); No Psychomotor Retardation, No Bizarre Mannerisms, No Tics Speech: Clear, Spontaneous, Normal Rate, Normal Rhythm, Normal Volume, Normal Tone; No Slurred, No Garbled; Rambling (Compelled to tell the same story to the same persons many times without recognition of the person he previously told the story to, or the content of the story.) Mood: Dysthmic/Depressed (Patient verbalizes high frustration, say he feels as though he is in usp.) Affect: Neutral; No Withdrawn; Anxious (at times), Agitated (at times) Thought Process: No Loose Associations, No Flight of Ideas; Other (Perseverates) Thought Content: Suicidal Ideation (references stemming from frustration of current condition at times.); No Homicidal Ideation, No Delusions, No Auditory Halllucinations, No Visual Hallucinations, No Thought Broadcasting, No Ideas of Reference, No Obsessions; Other (paranoia associated with dementia) Cognition: Alert & Oriented-Person; No Alert & Oriented-Place (Believes the hospital is a longterm, or says he feels as though the hospital is a longterm.), No Alert & Oriented-Time, No Qkflz-Gtvlbecl-Qeagpbrbk Memory: No Immediate, No Recent; Remote, Other (Memory is problematic, repeats himself for hours on end.) Intelligence: Average (historically seems to have been average) Insight Judgment: Poor (Secondary to advancing dementia, cannot make sound decisions, with extremely limited immediate memory) [facility] Assessment and Plan [id number] Encounter Date: Feb 18, 2018 [id number] Encounter Time: 10:00 [facility] Plan: Necessary Precautions, Individual/Group Therapy, Admin/Titrate Meds, Educate Patient Tobacco Medications: Not Appropriate Condition Multpiple Antipsychotics Used: No Problems: (1) Major neurocognitive disorder Status: Chronic Assessment & Plan: patient in need of assisted placement, and guardianship Condition 1. continue treatment. 2. encourage medication compliance. 3. look for placement, [facility]. LINWOOD GIRON MD Feb 18, 2018 10:25
[2018-02-18] MEDS: DONEPEZIL HCL 5 MG TAB PO SCH (17:00)
[2018-02-18] MEDS: OLANZapine 5 MG TAB PO SCH (17:00)
[2018-02-19] MEDS: THIAMINE HCL 100 MG TAB PO SCH (08:43)
[2018-02-19] MEDS: FOLIC ACID 1 MG TAB PO SCH (08:43)
[2018-02-19] MEDS: MULTIVITAMINS TAB PO SCH (08:43)
[2018-02-19] MEDS: CYANOCOBALAMIN 1000 MCG TAB PO SCH (08:43)
[2018-02-19] MEDS: OMEGA-3 500 MG CAP PO SCH (08:43)
[2018-02-19] MEDS: CHOLECALCIFEROL 1000 UNIT TAB PO SCH (08:44)
[2018-02-19] MEDS: OLANZapine 5 MG TAB PO SCH (17:00)
[2018-02-19] MEDS: DONEPEZIL HCL 5 MG TAB PO SCH (17:00)
[2018-02-20] MEDS: FOLIC ACID 1 MG TAB PO SCH (09:00)
[2018-02-20] MEDS: OMEGA-3 500 MG CAP PO SCH (09:00)
[2018-02-20] MEDS: MULTIVITAMINS TAB PO SCH (09:00)
[2018-02-20] MEDS: THIAMINE HCL 100 MG TAB PO SCH (09:00)
[2018-02-20] MEDS: CHOLECALCIFEROL 1000 UNIT TAB PO SCH (09:00)
[2018-02-20] MEDS: CYANOCOBALAMIN 1000 MCG TAB PO SCH (09:00)
--- NOTE | 2018-02-20 14:48 | BHS Progress Note ---
[facility] - Subjective Progress Notes Subjective Pt seen in the dining room since he refused to attend his team meeting. He also refused blood draw and u/a ordered this am. He actually seemed in relatively good spirits today, happy to have ice cream and chips for snack. His memory impairment continues-- he forgot multiple times that staff will assist him with trimming his nails later. PO intake has been good, no complaints of pain, is steady on his feet-- therefore I will cancel routine blood draw since pt is refusing. Await bed at [facility] which should open up next week. Suicidal Ideation: None Homicidal Ideation: None S - Objective Physical Exam Vital Signs refused Muscle Strength and Tone: WNL Gait and Station: Steady [facility] Medications Reviewed: Side Effects, Benefits of Medication, Risks Allergies Reviewed: Yes Mental Status Exam General Appearance: Casual, Good Eye Contact, Polite, Unkept (minimally); No Tearful; Psychomotor Agitation (At times is frustrated and walks in halting manner.); No Psychomotor Retardation, No Bizarre Mannerisms, No Tics Speech: Clear, Spontaneous, Normal Rate, Normal Rhythm, Normal Volume, Normal Tone; No Slurred, No Garbled; Rambling (Compelled to tell the same story to the same persons many times without recognition of the person he previously told the story to, or the content of the story.) Mood: Dysthmic/Depressed (Patient verbalizes high frustration, say he feels as though he is in nursing home.) Affect: Neutral; No Withdrawn; Anxious (at times), Agitated (at times) Thought Process: No Loose Associations, No Flight of Ideas; Other (Perseverates) Thought Content: Suicidal Ideation (references stemming from frustration of current condition at times.); No Homicidal Ideation, No Delusions, No Auditory Halllucinations, No Visual Hallucinations, No Thought Broadcasting, No Ideas of Reference, No Obsessions; Other (paranoia associated with dementia) Cognition: Alert & Oriented-Person; No Alert & Oriented-Place (Believes the hospital is a detention, or says he feels as though the hospital is a detention.), No Alert & Oriented-Time, No Dvstm-Nrqkyvpi-Hbljzencb Memory: No Immediate, No Recent; Remote, Other (Memory is problematic, repeats himself for hours on end.) Intelligence: Average (historically seems to have been average) Insight Judgment: Poor (Secondary to advancing dementia, cannot make sound decisions, with extremely limited immediate memory) [facility] Assessment and Plan [id number] Encounter Date: Feb 20, 2018 [id number] Encounter Time: 13:00 [facility] Plan: Necessary Precautions, Individual/Group Therapy, Admin/Titrate Meds, Educate Patient Tobacco Medications: Not Appropriate Condition Multpiple Antipsychotics Used: No Problems: (1) Major neurocognitive disorder Status: Chronic SRINIVASA LOVE MD Feb 20, 2018 14:48
[2018-02-20] MEDS: OLANZapine 5 MG TAB PO SCH (17:00)
[2018-02-20] MEDS: DONEPEZIL HCL 5 MG TAB PO SCH (17:00)
[2018-02-21] MEDS: FOLIC ACID 1 MG TAB PO SCH (08:26)
[2018-02-21] MEDS: OMEGA-3 500 MG CAP PO SCH (08:26)
[2018-02-21] MEDS: CYANOCOBALAMIN 1000 MCG TAB PO SCH (08:27)
[2018-02-21] MEDS: CHOLECALCIFEROL 1000 UNIT TAB PO SCH (08:27)
[2018-02-21] MEDS: MULTIVITAMINS TAB PO SCH (08:27)
[2018-02-21] MEDS: THIAMINE HCL 100 MG TAB PO SCH (08:27)
--- NOTE | 2018-02-21 14:45 | BHS Progress Note ---
[facility] - Subjective Progress Notes Subjective Pt seen in his room. He continues to show short term memory impairment severe. I told him he would be leaving on Friday to go to [facility] and he was initially quite pleased, but within 5 minutes had no recollection. Appetite remains good. Evidence of mild suspiciousness continues. He continues to refuse meds and lab draws. For transfer on Friday. Suicidal Ideation: None Homicidal Ideation: None [facility] - Objective Physical Exam Muscle Strength and Tone: WNL Gait and Station: Steady [facility] Medications Reviewed: Side Effects, Benefits of Medication, Risks Allergies Reviewed: Yes Mental Status Exam General Appearance: Casual, Good Eye Contact, Polite, Unkept (minimally); No Tearful; Psychomotor Agitation (At times is frustrated and walks in halting manner.); No Psychomotor Retardation, No Bizarre Mannerisms, No Tics Speech: Clear, Spontaneous, Normal Rate, Normal Rhythm, Normal Volume, Normal Tone; No Slurred, No Garbled; Rambling (Compelled to tell the same story to the same persons many times without recognition of the person he previously told the story to, or the content of the story.) Mood: Dysthmic/Depressed (Patient verbalizes high frustration, say he feels as though he is in alf.) Affect: Neutral; No Withdrawn; Anxious (at times), Agitated (at times) Thought Process: No Loose Associations, No Flight of Ideas; Other (Perseverates) Thought Content: Suicidal Ideation (references stemming from frustration of current condition at times.); No Homicidal Ideation, No Delusions, No Auditory Halllucinations, No Visual Hallucinations, No Thought Broadcasting, No Ideas of Reference, No Obsessions; Other (paranoia associated with dementia) Cognition: Alert & Oriented-Person; No Alert & Oriented-Place (Believes the hospital is a longterm, or says he feels as though the hospital is a longterm.), No Alert & Oriented-Time, No Mkvcx-Pclicivs-Zhkpfqzfs Memory: No Immediate, No Recent; Remote, Other (Memory is problematic, repeats himself for hours on end.) Intelligence: Average (historically seems to have been average) Insight Judgment: Poor (Secondary to advancing dementia, cannot make sound decisions, with extremely limited immediate memory) [facility] Assessment and Plan [id number] Encounter Date: Feb 21, 2018 [id number] Encounter Time: 13:00 [facility] Plan: Necessary Precautions, Individual/Group Therapy, Admin/Titrate Meds, Educate Patient Tobacco Medications: Not Appropriate Condition Multpiple Antipsychotics Used: No Problems: (1) Major neurocognitive disorder Status: Chronic SRINIVASA LOVE MD Feb 21, 2018 14:45
[2018-02-21] MEDS: DONEPEZIL HCL 5 MG TAB PO SCH (17:00)
[2018-02-21] MEDS: OLANZapine 5 MG TAB PO SCH (17:00)
[2018-02-22] MEDS: OMEGA-3 500 MG CAP PO SCH (08:31)
[2018-02-22] MEDS: FOLIC ACID 1 MG TAB PO SCH (08:31)
[2018-02-22] MEDS: MULTIVITAMINS TAB PO SCH (08:31)
[2018-02-22] MEDS: CYANOCOBALAMIN 1000 MCG TAB PO SCH (08:32)
[2018-02-22] MEDS: THIAMINE HCL 100 MG TAB PO SCH (08:32)
[2018-02-22] MEDS: CHOLECALCIFEROL 1000 UNIT TAB PO SCH (08:32)
--- NOTE | 2018-02-22 13:14 | BHS Progress Note ---
[facility] - Subjective Progress Notes Subjective Pt seen in conference room with staff. He continues to show very poor short term recall, irritability at times like when encouraged to shower, has news papers crumpled and scattered in his room, empty paper plates and juice cartons. He has been told several times about upcoming transfer to [facility] on Fri. but he consistently does not remember after about 5 minutes. Clearly unable to care for self out of hospital setting. Suicidal Ideation: None Homicidal Ideation: None [facility] - Objective Physical Exam Muscle Strength and Tone: WNL Gait and Station: Steady [facility] Medications Reviewed: Side Effects, Benefits of Medication, Risks Allergies Reviewed: Yes Mental Status Exam General Appearance: Casual, Good Eye Contact, Polite, Unkept (minimally); No Tearful; Psychomotor Agitation (At times is frustrated and walks in halting manner.); No Psychomotor Retardation, No Bizarre Mannerisms, No Tics Speech: Clear, Spontaneous, Normal Rate, Normal Rhythm, Normal Volume, Normal Tone; No Slurred, No Garbled; Rambling (Compelled to tell the same story to the same persons many times without recognition of the person he previously told the story to, or the content of the story.) Mood: Dysthmic/Depressed (Patient verbalizes high frustration, say he feels as though he is in long-term.) Affect: Neutral; No Withdrawn; Anxious (at times), Agitated (at times) Thought Process: No Loose Associations, No Flight of Ideas; Other (Perseverates) Thought Content: Suicidal Ideation (references stemming from frustration of current condition at times.); No Homicidal Ideation, No Delusions, No Auditory Halllucinations, No Visual Hallucinations, No Thought Broadcasting, No Ideas of Reference, No Obsessions; Other (paranoia associated with dementia) Cognition: Alert & Oriented-Person; No Alert & Oriented-Place (Believes the hospital is a nursing home, or says he feels as though the hospital is a nursing home.), No Alert & Oriented-Time, No Xdioc-Mgswlowx-Zhhhtxjxw Memory: No Immediate, No Recent; Remote, Other (Memory is problematic, repeats himself for hours on end.) Intelligence: Average (historically seems to have been average) Insight Judgment: Poor (Secondary to advancing dementia, cannot make sound decisions, with extremely limited immediate memory) [facility] Assessment and Plan Leyo-pe-Lbww Encounter Date: Feb 22, 2018 Bdzi-mc-Qocz Encounter Time: 08:00 [facility] Plan: Necessary Precautions, Individual/Group Therapy, Admin/Titrate Meds, Educate Patient Tobacco Medications: Not Appropriate Condition Multpiple Antipsychotics Used: No Problems: (1) Major neurocognitive disorder Status: Chronic SRINIVASA LOVE MD Feb 22, 2018 13:14
[2018-02-22] MEDS: DONEPEZIL HCL 5 MG TAB PO SCH (17:00)
[2018-02-22] MEDS: OLANZapine 5 MG TAB PO SCH (17:00)
[2018-02-23] MEDS: MULTIVITAMINS TAB PO SCH (09:00)
[2018-02-23] MEDS: OMEGA-3 500 MG CAP PO SCH (09:00)
[2018-02-23] MEDS: THIAMINE HCL 100 MG TAB PO SCH (09:00)
[2018-02-23] MEDS: CHOLECALCIFEROL 1000 UNIT TAB PO SCH (09:00)
[2018-02-23] MEDS: FOLIC ACID 1 MG TAB PO SCH (09:00)
[2018-02-23] MEDS: CYANOCOBALAMIN 1000 MCG TAB PO SCH (09:00)
--- NOTE | 2018-02-23 11:04 | BHS Progress Note ---
[facility] - Subjective Progress Notes Subjective Pt seen in dining room. A bit better groomed today. Last night came out of his room with underwear on but no pants, it took a bit of convincing that he needed to go put his pants on, but eventually he did. Other than that, no problems. He still has very poor short term recall. Still perseverates on not wanting to be "locked up," talking about the incident when the police brought him here. Still refused medications and lab draws. For transfer to [facility] on Friday. Suicidal Ideation: None Homicidal Ideation: None [facility] - Objective Physical Exam Muscle Strength and Tone: WNL Gait and Station: Steady [facility] Medications Reviewed: Side Effects, Benefits of Medication, Risks Allergies Reviewed: Yes Mental Status Exam General Appearance: Casual, Well Groomed, Good Eye Contact, Polite, Unkept (better today); No Tearful; Psychomotor Agitation (At times is frustrated.); No Psychomotor Retardation, No Bizarre Mannerisms, No Tics Speech: Clear, Spontaneous, Normal Rate, Normal Rhythm, Normal Volume, Normal Tone; No Slurred, No Garbled; Rambling (Compelled to tell the same story to the same persons many times without recognition of the person he previously told the story to, or the content of the story.) Mood: Dysthmic/Depressed (Patient verbalizes high frustration, say he feels as though he is in [facility].) Affect: Neutral; No Withdrawn; Anxious (at times), Agitated (at times) Thought Process: No Loose Associations, No Flight of Ideas; Other (Perseverates) Thought Content: No Suicidal Ideation, No Homicidal Ideation, No Delusions, No Auditory Halllucinations, No Visual Hallucinations, No Thought Broadcasting, No Ideas of Reference, No Obsessions, No Compulsions; Other (paranoia associated with dementia) Cognition: Alert & Oriented-Person; No Alert & Oriented-Place (Believes the hospital is a long-term, or says he feels as though the hospital is a long-term.), No Alert & Oriented-Time, No Zdsmv-Bbpuqhkh-Jtqqtmwlv Memory: No Immediate, No Recent; Remote, Other (Memory is problematic, repeats himself for hours on end.) Intelligence: Average (historically seems to have been average) Insight Judgment: Poor (Secondary to advancing dementia, cannot make sound decisions, with extremely limited immediate memory) [facility] Assessment and Plan Wdxn-ys-Dzkp Encounter Date: Feb 23, 2018 Vewt-cm-Znrw Encounter Time: 08:30 [facility] Plan: Necessary Precautions, Individual/Group Therapy, Admin/Titrate Meds, Educate Patient Tobacco Medications: Not Appropriate Condition Multpiple Antipsychotics Used: No Problems: (1) Major neurocognitive disorder Status: Chronic SRINIVASA LOVE MD Feb 23, 2018 11:04
[2018-02-23] MEDS: OLANZapine 5 MG TAB PO SCH (16:35)
[2018-02-24] MEDS: OMEGA-3 500 MG CAP PO SCH (08:40)
[2018-02-24] MEDS: MULTIVITAMINS TAB PO SCH (08:41)
[2018-02-24] MEDS: THIAMINE HCL 100 MG TAB PO SCH (08:41)
[2018-02-24] MEDS: FOLIC ACID 1 MG TAB PO SCH (08:41)
[2018-02-24] MEDS: CYANOCOBALAMIN 1000 MCG TAB PO SCH (08:41)
[2018-02-24] MEDS: CHOLECALCIFEROL 1000 UNIT TAB PO SCH (08:41)
--- NOTE | 2018-02-24 13:49 | BHS Progress Note ---
S - Subjective Progress Notes Subjective Pt seen in dining room. He continues to be marginally cooperative, still refuses medications and lab draws, he has been eating well and did shower. He is impaired significantly in his short term memory. Denies pain or other complaints. He will be transferring to [facility] tomorrow. Suicidal Ideation: None Homicidal Ideation: None [facility] - Objective Physical Exam Muscle Strength and Tone: WNL Gait and Station: Steady [facility] Medications Reviewed: Side Effects, Benefits of Medication, Risks Allergies Reviewed: Yes Mental Status Exam General Appearance: Casual, Well Groomed, Good Eye Contact, Polite, Unkept (better today); No Tearful; Psychomotor Agitation (At times is frustrated.); No Psychomotor Retardation, No Bizarre Mannerisms, No Tics Speech: Clear, Spontaneous, Normal Rate, Normal Rhythm, Normal Volume, Normal Tone; No Slurred, No Garbled; Rambling (Compelled to tell the same story to the same persons many times without recognition of the person he previously told the story to, or the content of the story.) Mood: Dysthmic/Depressed (Patient verbalizes high frustration, say he feels as though he is in [facility].) Affect: Neutral; No Withdrawn; Anxious (at times), Agitated (at times) Thought Process: No Loose Associations, No Flight of Ideas; Other (Perseverates) Thought Content: No Suicidal Ideation, No Homicidal Ideation, No Delusions, No Auditory Halllucinations, No Visual Hallucinations, No Thought Broadcasting, No Ideas of Reference, No Obsessions, No Compulsions; Other (paranoia associated with dementia) Cognition: Alert & Oriented-Person; No Alert & Oriented-Place (Believes the hospital is a nursing home, or says he feels as though the hospital is a nursing home.), No Alert & Oriented-Time, No Upkkb-Cqgvsfur-Frfihufqy Memory: No Immediate, No Recent; Remote, Other (Memory is problematic, repeats himself for hours on end.) Intelligence: Average (historically seems to have been average) Insight Judgment: Poor (Secondary to advancing dementia, cannot make sound decisions, with extremely limited immediate memory) [facility] Assessment and Plan Ffgy-yb-Zofp Encounter Date: Feb 24, 2018 Ktlw-ve-Slhm Encounter Time: 10:[address] [facility] Plan: Necessary Precautions, Individual/Group Therapy, Admin/Titrate Meds, Educate Patient Tobacco Medications: Not Appropriate Condition Multpiple Antipsychotics Used: No Problems: (1) Major neurocognitive disorder Status: Chronic SRINIVASA LOVE MD Feb 24, 2018 13:49
[2018-02-25] MEDS: THIAMINE HCL 100 MG TAB PO SCH (08:28)
[2018-02-25] MEDS: CYANOCOBALAMIN 1000 MCG TAB PO SCH (08:28)
[2018-02-25] MEDS: FOLIC ACID 1 MG TAB PO SCH (08:28)
[2018-02-25] MEDS: MULTIVITAMINS TAB PO SCH (08:28)
[2018-02-25] MEDS: OMEGA-3 500 MG CAP PO SCH (08:28)
[2018-02-25] MEDS: CHOLECALCIFEROL 1000 UNIT TAB PO SCH (08:28)
[2018-02-25] MEDS ORDERED: MULT-1335 PO (08:47)
[2018-02-25] MEDS ORDERED: OMEG1CAP35 PO (08:47)
[2018-02-25] MEDS ORDERED: FOLI-68 PO (08:47)
[2018-02-25] MEDS ORDERED: THIA100T2 PO (08:48)
[2018-02-25] MEDS ORDERED: CHOL10005 PO (08:49)
[2018-02-25] MEDS ORDERED: CYA1000 PO (08:49)
[2018-02-25] MEDS ORDERED: ACET-1966 PO (08:50)
--- NOTE | 2018-02-25 14:46 | BHS Discharge Summary ---
[facility] Discharge Summary Pevm-qb-Sjrv Encounter Date: Feb 25, 2018 Mekh-kr-Akab Encounter Time: 08:30 Reason-Hosp/Final Diag (DSM-V): (1) Major neurocognitive disorder Status: Chronic Hospital Course & Plan: Patient was admitted to [facility] on a Title 25 involuntary admission. Ultimately he was committed to the [facility] because of inability to care for self due to dementia. While on the unit his short term recall was typically nil after about 5 minutes. Longer term memory seemed intact. He initially refused to eat for first several days but after that he ate well. Sleep was always fine. He was often irritable with us, asking over and over why he was here, and stating that he was perfectly able to take care of himself. He would brayden papers and scraps of food in his room, would spread newspapers on his bed and sleep on them, occasionally he would take off his pants and walk out in his underwear. Organic work-up included CT of head with the following report: 1. No evidence of acute intracranial pathology 2. moderate parenchymal atrophy with chronic small vessel ischemic changes. Labs were all WNL including B12 and folate. Mental Status Exam General Appearance: Casual, Well Groomed, Good Eye Contact, Cooperative, Polite; No Good Interaction, No Unkept, No Tearful, No Psychomotor Agitation, No Psychomotor Retardation, No Bizarre Mannerisms, No Tics, No Other Speech: Clear, Spontaneous, Normal Rate, Normal Rhythm, Normal Volume, Normal Tone; No Slurred, No Garbled; Rambling (Compelled to tell the same story to the same persons many times without recognition of the person he previously told the story to, or the content of the story.) Mood: Euthymic Affect: Neutral; No Withdrawn Thought Process: No Loose Associations, No Flight of Ideas; Other (Perseve rates) Thought Content: No Suicidal Ideation, No Homicidal Ideation, No Delusions, No Auditory Halllucinations, No Visual Hallucinations, No Thought Broadcasting, No Ideas of Reference, No Obsessions, No Compulsions, No Other Sensorium: Clear Cognition: Alert & Oriented-Person, Alert & Oriented-Place; No Alert & Orie nted-Time, No [place]ok-Ylnusggm-Yjreakknc Memory: No Immediate, No Recent; Remote, Other (Memory is problematic, repeats himself for hours on end.) Intelligence: Average (historically seems to have been average) Insight Judgment: Poor (Secondary to advancing dementia, cannot make sound decisions, with extremely limited immediate memory) Departure Condition: No Change Discharge to: Another Hospital ([facility]) Discharge Instructions Home Meds Reported Medications Acetaminophen (TYLENOL) 325 Mg Tablet, 650 MG PO Q4H PRN for PAIN, TAB 02/25/18 Cholecalciferol (Vitamin D3) (VITAMIN D3) 1,000 Unit Tablet, 1000 UNIT PO QDAY, TAB 02/25/18 Cyanocobalamin (Vitamin B-12) (VITAMIN B-12) 1,000 Mcg Tablet, 1000 MCG PO QDAY 02/25/18 Thiamine Mononitrate (VITAMIN B-1) 100 Mg Tablet, 100 MG PO QDAY 02/25/18 Multivitamin With Minerals (MULTIPLE VITAMIN) 1 Each Tablet, 1 EACH PO QDAY, TAB 02/25/18 Folic Acid (FOLIC ACID) 1 Mg Tablet, 1 MG PO QDAY, TAB 02/25/18 Evans-3/Dha/Epa/Fish Oil (FISH OIL 500 MG SOFTGEL) 1 Each Capsule, 1000 EACH PO QDAY, CAPSULE 02/25/18 Multpiple Antipsychotics Used: No Diet: Regular Special Instructions: Follow up with [facility] for all aspects of your care. Take medications as prescribed. Call Crisis Line should symptoms return. Flu shot was refused. SRINIVASA LOVE MD Feb 25, 2018 14:45
== END 2018-02-25 10:04 | DRG 884 ==
LOC: BHS 22:57
PROVIDERS: ADMIT Psychiatry & Neurology Psychiatry; ATTEND Psychiatry & Neurology Psychiatry
DX: F01.50 Vascular dementia, unspecified severity, without behavioral disturbance, psychotic disturbance, mood disturbance, and anxiety (principal); F22 Delusional disorders; Z96.651 Presence of right artificial knee joint
CPT/HCPCS: 36415; 36416; 70450; 80305; 80320; 80329; 81001; 82040; 82247; 82306; 82310; 82374; 82435; 82565; 82607; 82746; 82947; 82948; 83735; 84075; 84132; 84155; 84295; 84439; 84443; 84450; 84460; 84481; 84520; 85025; 99284